=== PATIENT | female | born 1970 | race Caucasian/White ===

== ENCOUNTER 2019-11-12 06:49 | Outpatient (REF) | payer OTHER, SELFPAY ==
[2019-11-12 08:20] LABS: Glucose Urine UA NEG (NEG); Leukocyte Esterase Urine 1+ (NEG); Nitrite Urine NEG (NEG); Specific Gravity - Urine >= 1.030 (1.005-1.025); Urine Blood 3+ (NEG); Urine Ketones NEG (NEG); Urine Protein 2+ MG/DL (NEG-TRACE)
[2019-11-12 08:30] LABS: Free T4 (Free Thyroxine) 1.87 ng/dL (0.71-1.85); Thyroid Stimulating Hormone 0.01 mIU/mL (0.32-4.0)
[2019-11-12 08:30] LABS: Appearance Urine CLOUDY; Color Urine YELLOW
[2019-11-12 08:49] LABS: RBC Urine TNTC /HPF (0)
[2019-11-12 08:50] LABS: Mucus Urine 1+ /LPF; Renal Epithelial Cells Urine 1+ /LPF; Squamous Epithelial Cell Urine 1+ /LPF
== END 2019-11-12 06:50 | disposition home or self-care (01) ==
LOC: HO.LAB 06:49
PROVIDERS: PCP Internal Medicine; Visit Provider Internal Medicine
DX: E03.9 Hypothyroidism, unspecified (principal); R30.0 Dysuria
CPT/HCPCS: 36415; 81001; 81003; 84439; 84443; 87086; 87147

== ENCOUNTER 2019-11-27 12:13 | Outpatient (REF) | payer OTHER, SELFPAY ==
[2019-11-27 13:02] LABS: Urine Cytology See Pathology rpt
== END 2019-11-27 12:14 | disposition home or self-care (01) ==
LOC: HO.LAB 12:13
PROVIDERS: PCP Internal Medicine; Visit Provider Internal Medicine
DX: R31.9 Hematuria, unspecified (principal)
CPT/HCPCS: 88112

== ENCOUNTER → 2019-12-25 14:32 | Outpatient (BNVA) | payer OTHER, SELFPAY | PROVIDERS: PCP Internal Medicine; Referring Provider Internal Medicine; Visit Provider Urology | DX: Z76.89 Persons encountering health services in other specified circumstances (principal) ==

== ENCOUNTER 2020-01-22 06:57 | Day surgery (SDC) | payer OTHER, SELFPAY ==
[2020-01-16 14:29] VITALS: BMI 32.4
--- NOTE | 2020-01-21 09:00 | P.CONAN_ITS ---
HPI - Anesthesia Eval Consult details Narrative: 49yo F for Lithotripsy ESW [facility] Past Medical History Medical History (Updated 01/16/20 @ 14:32 by Jane Valdes) Palpitations Thyroid disease Surgical History Surgical History (Updated 01/16/20 @ 14:32 by Jane Valdes) History of incision and drainage Hx of carpal tunnel repair Hx of section Hx of cholecystectomy Hx of tonsillectomy Social History Social History Smoking Status: Never smoker Meds Allergies Allergy/AdvReac Type Severity Reaction Status Date / Time Sulfa (Sulfonamide Allergy Severe SYNCOPE/RADHA Verified 01/16/20 14:35 Antibiotics) H morphine [MORPHINE] Allergy Intermediate NAUSEA & Verified 01/16/20 14:35 VOMITING, vomiting Home Medications Medication Instructions Recorded Confirmed Type levothyroxine 175 mcg tablet 175 mcg PO DAILY 12/25/19 01/16/20 History Exam Exam Date and Time: January 21, 2020 0900 Height,Weight and Vital Signs: Height 5 ft Weight 75.296 kg Assessment and Plan Assessment Anesthesia Assessment: Chart Reviewed
--- NOTE | 2020-01-22 07:00 | XR_ITS ---
EXAMINATION: XR ABDOMEN KUB CLINICAL INDICATION: Preop, right renal stone COMPARISON: Ultrasound 08/23/2019 TECHNIQUE: AP view of the abdomen. FINDINGS: Cholecystectomy clips. Nonobstructive abdominal bowel gas pattern. Mild convex right thoracolumbar scoliosis. There is a 9 mm density at the level of L2-L3 suggestive of a right mid renal calculus. XR/XR KUB IMPRESSION: 9 mm density at the level of the L2-L3 disc space suggestive of a right mid renal calculus.
--- NOTE | 2020-01-22 09:13 | MHC.SHP ---
Pre-Procedural Eval Section B Chief Complaint: calculus of kidney Details of Present Illness: right eswl Relevant Family History (Specify if Yes): Yes Relevant Social History: None Present Medications: see Short Stay Collaborative assessment Medical History: No relevant PMH Allergies: Allergies Allergy/AdvReac Type Severity Reaction Status Date / Time Sulfa (Sulfonamide Allergy Severe SYNCOPE/RADHA Verified 01/16/20 14:35 Antibiotics) H morphine [MORPHINE] Allergy Intermediate NAUSEA & Verified 01/16/20 14:35 VOMITING, vomiting Review of Systems Sugical H&P ROS: Negative: Constitution, Cardiovascular, Respiratory, Neurological, Psychiatric, Hem-Onc, Allergic/Immunologic, Gastrointestinal, Genitourinary, Musculoskeletal, Integumentary, Endocrine and Eyes/Ears/Nose/Throat Exam Surgical H&P Exam: Normal: HEENT, Normal: Heart, Normal: Lungs, Normal: Extremities, Normal: Abdomen, Normal: Skin and Normal: Neurological Plan Diagnosis/Plan: Unchanged Patient has been examined and remains a candidate for the planned procedure - right eswl
--- NOTE | 2020-01-22 10:19 | PM.OP ---
Brief Operative Note Date of Service: 01/22/20 Pre-op diagnosis: Right renal stones Post-op diagnosis: same Procedure: Right ESWL Surgeon: Flip Flores MD Anesthesia: MAC Estimated blood loss (mL): 0 Pathology: none sent Condition: stable Disposition: same day
--- NOTE | 2020-01-22 10:19 | W.PM.OPN ---
Operative Note Operative Note Date of Service: 01/22/20 Narrative: PreOperative Diagnosis: right Renal stones Post Operative Diagnosis: right Renal stones Procedure: right ESWL Surgeon: Dr Flip Flores Anesthesia: mac/sedation Indications for procedure: They understand ESWL may be a staged procedure and subsequent intervention may be required based on imaging after ESWL. They also understand there is a risk of bleeding, infection, damage to adjacent organs. Procedure: After informed consent was verified the patient was brought to the operating room and placed in a supine position. Anesthesia was performed per protocol. Safety pause time-out was performed. Imaging was in the room and laterality confirmed. ESWL was performed. The 1st 500 shocks were performed at 60 hertz. These were performed with increasing power. Once maximum power was reached the rate was increased to 180 hertz. A total of 2500 shocks were given. Fluoroscopy showed stone disintegration. They tolerated procedure well and was transferred to the recovery area upon completion.
== END 2020-01-22 11:21 | disposition home or self-care (01) ==
LOC: HO.SSS 06:58
PROVIDERS: PCP Internal Medicine; Visit Provider Urology
PROC: (CPT 50590; principal; 2020-01-22 08:40)
DX: N20.0 Calculus of kidney (principal); Z88.2 Allergy status to sulfonamides; Z88.5 Allergy status to narcotic agent
CPT/HCPCS: 50590; 74018; J2250; J2370; J3010

== ENCOUNTER 2020-02-17 10:34 | Outpatient (REF) | payer OTHER, SELFPAY ==
--- NOTE | 2020-02-17 10:41 | XR_ITS ---
EXAMINATION: XR ABDOMEN KUB CLINICAL INDICATION: Calculus of kidney. COMPARISON: Abdominal radiographs dated 01/22/2020. TECHNIQUE: AP views of the abdomen. FINDINGS: Redemonstration of a right-sided renal stone measuring approximately 0.9 cm overlying the inferior pole of the right kidney. This is again noted to appear at the level of the L2-L3 intervertebral disc space. No additional radiopaque renal stone. Upper quadrant surgical clips. Nonobstructive bowel gas pattern. XR/XR KUB IMPRESSION: Redemonstration of a right-sided renal stone measuring 0.9 cm overlying the inferior pole of the right kidney.
== END 2020-02-17 10:35 | disposition home or self-care (01) ==
LOC: HO.XRAY 10:34
PROVIDERS: PCP Internal Medicine; Visit Provider Urology
DX: N20.0 Calculus of kidney (principal)
CPT/HCPCS: 74018

== ENCOUNTER → 2020-02-25 13:18 | Outpatient (BNVA) | payer OTHER, SELFPAY | PROVIDERS: PCP Internal Medicine; Visit Provider Urology ==

== ENCOUNTER 2020-03-02 06:59 | Day surgery (SDC) | payer OTHER, SELFPAY ==
--- NOTE | 2020-02-28 13:29 | P.CONAN_ITS ---
Documented by User: Marylu Mullen 02/28/20 13:30 HPI - Anesthesia Eval Consult details Narrative: 49yo F for Cystoscopy, Ureteroroscopy, Retro, Laser s/p ESWL 01/2020 with MAC, req'd ephedrine 15 and phenylephrine 300 [facility] Past Medical History Medical History Palpitations Thyroid disease Surgical History Surgical History Cataract extraction status of left eye History of incision and drainage Hx of carpal tunnel repair Hx of section Hx of cholecystectomy Hx of tonsillectomy Social History Social History Smoking Status: Never smoker Use of substances other than those prescribed or required for medical reasons: No Advance Directives: No Advance Directives Information Provided: Yes Meds Allergies Allergy/AdvReac Type Severity Reaction Status Date / Time Sulfa (Sulfonamide Allergy Severe SYNCOPE/RADHA Verified 03/02/20 07:05 Antibiotics) H morphine [MORPHINE] Allergy Intermediate NAUSEA & Verified 03/02/20 07:05 VOMITING, vomiting Home Medications Medication Instructions Recorded Confirmed Type levothyroxine 175 mcg tablet 175 mcg PO DAILY 12/25/19 01/16/20 History Exam Exam Date and Time: February 28, [id number] Assessment and Plan Assessment Anesthesia Assessment: Chart Reviewed Documented by User: Pennie Goss 03/02/20 08:14 [facility] Past Medical History Medical History Palpitations Thyroid disease Surgical History Surgical History Cataract extraction status of left eye History of incision and drainage Hx of carpal tunnel repair Hx of section Hx of cholecystectomy Hx of tonsillectomy Social History Social History Smoking Status: Never smoker Use of substances other than those prescribed or required for medical reasons: No Advance Directives: No Advance Directives Information Provided: Yes Meds Allergies Allergy/AdvReac Type Severity Reaction Status Date / Time Sulfa (Sulfonamide Allergy Severe SYNCOPE/RADHA Verified 03/02/20 07:05 Antibiotics) H morphine [MORPHINE] Allergy Intermediate NAUSEA & Verified 03/02/20 07:05 VOMITING, vomiting Home Medications Medication Instructions Recorded Confirmed Type levothyroxine 175 mcg tablet 175 mcg PO DAILY 12/25/19 01/16/20 History
[2020-03-02] VITALS (9 sets, daily range): BP systolic 98–143; BP diastolic 55–80; PULSE 54–91; RESP 16–18; TEMP 36.3–36.4; O2SAT 96–98; BMI 29.9
[2020-03-02] MEDS: levoFLOXacin 500 MG TABLET PO (07:22)
[2020-03-02] MEDS: Lactated Ringers 1,000 ML 100 ML IVCONT (07:30)
--- NOTE | 2020-03-02 08:42 | FL_ITS ---
EXAMINATION: XR FLUOROSCOPY WITH IMAGES CLINICAL INFORMATION: Right renal stone COMPARISON: KUB 02/17/2020 TECHNIQUE: Fluoroscopy performed by Dr. Flip Flores. Fluoroscopy time: 38 seconds Dose: 28 mg Images: 2 FINDINGS: Initial image demonstrates opacification of the right renal collecting system and proximal ureter. Second image demonstrates the distal end of the right internal ureteral stent. FL/FL guidance in OR IMPRESSION: Fluoroscopic guidance for right ureteral stent placement.
--- NOTE | 2020-03-02 08:51 | MHC.SHP ---
Pre-Procedural Eval Section A The patient is an INPATIENT: No Changes since office visit: No Cold of Flu in the past 2 weeks, No New Medical Problems, No Changes in Medication and No Patient answered all questions The History & Physical has been completed within 30 days and I have reviewed it.: Yes Section B Chief Complaint: calclus of kidney Allergies: Allergies Allergy/AdvReac Type Severity Reaction Status Date / Time Sulfa (Sulfonamide Allergy Severe SYNCOPE/RADHA Verified 03/02/20 07:05 Antibiotics) H morphine [MORPHINE] Allergy Intermediate NAUSEA & Verified 03/02/20 07:05 VOMITING, vomiting Plan Diagnosis/Plan: Unchanged I have reviewed the history and physical and performed a pertinent physical examination on my patient. No changes have occurred unless specified. Right retrograde, ureteroscopy laser lithotripsy stent placement
--- NOTE | 2020-03-02 09:24 | PM.OP ---
Brief Operative Note Date of Service: 03/02/20 Pre-op diagnosis: right renal stone Post-op diagnosis: same Procedure: 1. Cystoscopy right retrograde 2. Dilatation right ureteric orifice under fluoroscopy 3. Right flexible ureteroscopy laser lithotripsy stone basketing 4. Stent placement Implants: Six Argentine by 22 cm double-J stent Surgeon: Flip Flores MD Anesthesia: GLMA Estimated blood loss (mL): 0 Pathology: other (Stones) Condition: stable Disposition: same day
--- NOTE | 2020-03-02 09:26 | W.PM.OPN ---
Operative Note Operative Note Date of Service: 03/02/20 Narrative: PreOperative Diagnosis: Right renal stone Post Operative Diagnosis: Right renal stone Procedure: - cystoscopy, right retrograde - right dilatation of ureteric orifice under fluoroscopy - right ureteroscopy, laser lithotripsy, stone basketing - right stent placement Surgeon: Dr Flip Flores Anesthesia: General Indications for procedure: 49-year-old female. Had undergone ESWL on the right side but imaging had shown minimal smudging of stone. Recommend ureteroscopy with laser lithotripsy and we would be able to get pieces stone Procedure: After informed consent was verified patient was brought to the operating placed in supine position. Anesthesia was administered per protocol. Patient was placed in modified dorsal lithotomy position and prepped and draped in a sterile fashion. Safety pause time-out and side of surgery confirmed. Antibiotics confirmed. Twenty-two Latvian cystoscope inserted per urethra. Bladder was normal. The ureteric orifices normal position. Right ureteric orifice cannulated and retrograde examination performed. Filling defects seen in the right renal pelvis consistent with prior imaging 9 mm stone. Sensor guidewire placed up to the level renal pelvis. Cystoscope was removed. In a cannula from ureteric access sheath used for dilatation under fluoroscopy After dilatation of the ureteric orifice the access sheath was placed. A flexible ureteroscope was placed. The stone was encountered in the renal pelvis. Using a 272 nm holmium laser fiber the stone was broken into small pieces using combination of dusting and hammer settings. ZeroTip basket was used to remove larger fragments. The renal pelvis irrigated in fragments and sand were removed. On secondary survey Will minimal fragments seen. This point the flexible ureteroscope was removed. A sensor guidewire was placed up to the level renal pelvis. A 6 Latvian by 22 cm double-J stent was placed with good coil seen in the renal pelvis and in the bladder. Bladder was emptied. She tolerated procedure well was extubated in operating room transferred in stable condition recovery area Pathology: Stone sent Drains: 6 Latvian by 22 cm double-J stent
[2020-03-02] MEDS: Phenazopyridine HCL 100 MG TABLET PO (09:56)
[2020-03-02] MEDS: Acetaminophen 325 MG TABLET 650 MG PO (09:56)
[2020-03-02] MEDS: ondansetron HCL 4 MG/2 ML VIAL IVPUSH (10:00)
[2020-03-02] MEDS: oxyCODONE HCl Immed Release 5 MG TABLET PO (11:00)
[2020-03-05 22:18] LABS: Stone Source KIDNEY STONE
== END 2020-03-02 11:45 | disposition home or self-care (01) ==
PROVIDERS: PCP Internal Medicine; Visit Provider Urology
PROC: (CPT 52356; principal; 2020-03-02 08:30)
DX: N20.0 Calculus of kidney (principal); R00.2 Palpitations; Z90.49 Acquired absence of other specified parts of digestive tract; Z88.2 Allergy status to sulfonamides; Z88.8 Allergy status to other drugs, medicaments and biological substances
CPT/HCPCS: 52356; 82365; 88300; C1769; C1894; C2617; J1100; J1885; J2405; J3010; Q9967

== ENCOUNTER → 2020-03-11 14:50 | Outpatient (BNVA) | payer OTHER, SELFPAY | PROVIDERS: PCP Internal Medicine; Visit Provider Urology | DX: N20.0 Calculus of kidney (principal); Z46.6 Encounter for fitting and adjustment of urinary device | CPT/HCPCS: 52000; 52310; 81002 ==

== ENCOUNTER 2020-04-08 08:54 | Outpatient (REF) | payer OTHER, SELFPAY ==
--- NOTE | ~2020-04-08 | US_ITS ---
EXAMINATION: US RETROPERITONEAL LIMITED (RENAL ONLY) CLINICAL INFORMATION: Calculus of kidney. COMPARISON: X-ray KUB 02/17/2020 and 01/22/2020 TECHNIQUE: Real-time imaging of the kidneys. FINDINGS: RIGHT KIDNEY: 12.3 x 3.3 x 5.4 cm (SAG x AP x TRV). The kidney is normal in size, contour, and echogenicity. There is focal cortical thinning suspected. Otherwise, the rest of the cortical thickness is normal. No focal parenchymal lesions or hydronephrosis. There is twinkling/ echogenic shadowing likely small stone in lower pole measuring 0.7 x 0.3 x 0.5 cm. No additional echogenic stones seen. There is no hydronephrosis. LEFT KIDNEY: 11.3 x 4.4 x 5.9 cm (SAG x AP x TRV). The kidney is normal in size, contour, and echogenicity. No calculi or focal parenchymal lesions. No hydronephrosis. There is focal cortical thinning. There are punctate areas of focal echogenicity but no caliectasis. US/US renal BI IMPRESSION: Suspect bilateral focal cortical thinning. Small nonobstructive echogenic stone lower pole right kidney. No caliectasis or hydronephrosis seen.
== END 2020-04-08 08:55 | disposition home or self-care (01) ==
LOC: HO.US 08:54
PROVIDERS: Visit Provider Urology
DX: N20.0 Calculus of kidney (principal)
CPT/HCPCS: 76775

== ENCOUNTER → 2020-04-15 15:00 | Outpatient (BNVA) | payer OTHER, SELFPAY | PROVIDERS: Visit Provider Urology ==

== ENCOUNTER 2020-10-02 06:50 | Outpatient (REF) | payer OTHER, SELFPAY ==
[2020-10-02 07:20] LABS: MANUAL DIFF FLAG NO
[2020-10-02 07:22] LABS: Basophils Percent Auto 0.6 % (0-2); Eosinophils Absolute Auto 0.1 X10*3/uL (0.0-0.4); Eosinophils Percent Auto 2.8 % (0-4); Hematocrit 43.6 % (37-47); Hemoglobin 14.6 g/dl (12.0-16.0); Imm Gran Abs Auto 0.01 X10*3/uL (0.00-0.03); Imm Gran Pct Auto 0.2 % (0.0-0.4); Lymphocytes Absolute Auto 1.9 X10*3/uL (1.2-4.9); Mean Corpuscular HGB Conc 33.5 g/dl (31.0-35.0); Mean Corpuscular Hemoglobin 30.6 pg (27.0-33.0); Mean Corpuscular Volume 91.4 fL (80-98); Mean Platelet Volume 9.1 fL (9.4-12.3); Monocytes Absolute Auto 0.3 X10*3/uL (0.1-1.2); Monocytes Percent Auto 6.5 % (2-11); Neutrophils Absolute Auto 2.7 X10*3/uL (2.0-8.3); Neutrophils Percent Auto 52.9 % (45-73); Platelet Count 293 X10*3/uL (160-400); Red Blood Count 4.77 X10*6/uL (4.20-5.50); Red Cell Distribution Width 12.7 % (11.0-16.0); White Blood Count 5.1 X10*3/uL (4.8-10.8)
[2020-10-02 07:45] LABS: Alanine Aminotransferase 47 U/L (0-31); Albumin Level 4.2 g/dL (3.5-5.0); Alkaline Phosphatase 62 U/L (39-117); Anion Gap 10 (12-20); Aspartate Amino Transferase 27 U/L (5-31); Bilirubin Total 0.4 mg/dL (0.0-1.0); Blood Urea Nitrogen 24 mg/dL (9-16); Calcium 9.6 mg/dL (8.4-10.2); Carbon Dioxide 29 mmol/L (22-29); Chloride 106 mmol/L (96-108); Cholesterol 199 mg/dL; Estimated Glomerular Filt Rate > 60; Glucose Fasting 92 mg/dL (60-99); HDL Cholesterol 60 mg/dL; LDL Cholesterol Calculated 123 mg/dl; Potassium 4.9 mmol/L (3.3-5.1); Sodium 140 mmol/L (135-145); Total Protein 6.7 g/dL (6.5-8.0); Triglycerides 84 mg/dL
[2020-10-02 08:08] LABS: Free T4 (Free Thyroxine) 1.19 ng/dL (0.71-1.85); Vitamin D 25-OH Total 32.6 ng/mL (>30)
== END 2020-10-02 06:51 | disposition home or self-care (01) ==
LOC: HO.LAB 06:50
PROVIDERS: PCP Internal Medicine; Visit Provider Internal Medicine
DX: Z00.00 Encounter for general adult medical examination without abnormal findings (principal); E03.9 Hypothyroidism, unspecified; E55.9 Vitamin D deficiency, unspecified
CPT/HCPCS: 36415; 80053; 80061; 82306; 84439; 84443; 85025

== ENCOUNTER 2020-10-13 14:24 | Outpatient (REF) | payer OTHER, SELFPAY ==
--- NOTE | ~2020-10-13 | US_ITS ---
EXAMINATION: US RETROPERITONEAL LIMITED (RENAL ONLY) CLINICAL INFORMATION: Calculus of kidney. COMPARISON: Renal ultrasound 04/08/2020. KUB 02/17/2020 and 01/22/2020. Ultrasound abdomen complete 08/23/2019. CT abdomen and pelvis 06/18/2010. TECHNIQUE: Real-time imaging of the kidneys. FINDINGS: RIGHT KIDNEY: 11.2 x 4.8 x 2.6 cm (SAG x AP x TRV). The kidney is normal in size, contour, and echogenicity. Renal cortical thickness is normal. No focal parenchymal lesions or hydronephrosis. There is a nonobstructive echogenic stone in lower pole measuring 0.5 cm. LEFT KIDNEY: 11.3 x 4.8 x 4.2 cm (SAG x AP x TRV). The kidney is normal in size, contour, and echogenicity. Renal cortical thickness is normal. No calculi or focal parenchymal lesions. No hydronephrosis. US/US renal BI IMPRESSION: Nonobstructive echogenic stone lower pole right kidney. No hydronephrosis. Left kidney is unremarkable.
== END 2020-10-13 14:25 | disposition home or self-care (01) ==
LOC: HO.US 14:24
PROVIDERS: PCP Internal Medicine; Visit Provider Urology
DX: N20.0 Calculus of kidney (principal)
CPT/HCPCS: 76775

== ENCOUNTER → 2020-11-10 11:04 | Outpatient (BNVA) | payer OTHER, SELFPAY | PROVIDERS: PCP Internal Medicine ==

== ENCOUNTER 2021-03-30 10:25 | Outpatient (REF) | payer OTHER, SELFPAY ==
--- NOTE | ~2021-03-30 | MM_ITS ---
EXAMINATION: MM SCREENING DIGITAL BREAST TOMOSYNTHESIS, BILATERAL CLINICAL INFORMATION: Screening. Asymptomatic. 80 pound weight loss since prior mammography. The lifetime risk of breast cancer based on the Tyrer-Cuzick Model is 8%. COMPARISON: Mammography: 01/16/2018 (baseline) TECHNIQUE: Digital breast tomosynthesis is performed in both the craniocaudal and mediolateral oblique views along with computer-aided detection (CAD). Synthesized 2D images are generated from the tomosynthesis. FINDINGS: There are scattered areas of fibroglandular density (ACR BI-RADS breast composition Category b). The breasts are bilaterally decreased in size and show mild bilateral increased glandular attenuation consistent with the known weight loss. Parenchymal pattern is otherwise similar to prior baseline exam. There is no significant mass or architectural abnormality or abnormal calcifications. The axilla and skin contours are unremarkable. MM/MM tomosynthesis screening BI IMPRESSION: Bilateral decreased breast size and increased glandular attenuation consistent with the known weight loss. Otherwise, no significant changes. ASSESSMENT: BI-RADS 2: Benign RECOMMENDATION: Routine annual mammography screening. This patient's information was entered into a reminder system with a target due date for their next mammogram.
--- NOTE | ~2021-03-30 | MM_ITS ---
EXAMINATION: BONE DENSITOMETRY CLINICAL INDICATION: Menopause. COMPARISON: None (current study represents initial baseline exam). TECHNIQUE: Using a [employer] DXA System (software version: 13.1) manufactured by [employer], dual-energy x-ray absorptiometry was performed of the lumbar spine and left hip. The images are of good technical quality. Summary results are attached. FINDINGS: AP SPINE L1-L4: BMD 0.837 g/cm2, Z-score -1.9, T-score -2.9, osteoporosis. LEFT FEMUR, NECK: BMD 0.765 g/cm2, Z-score -0.8, T-score -2.0, osteopenia. LEFT FEMUR, TOTAL: BMD 0.798 g/cm2, Z-score -0.8, T-score -1.7, osteopenia. IDENTIFIED RISK FACTORS: None listed. HISTORY OF FRACTURE: None listed. MEDICATIONS: Vitamin D. MM/XR DEXA axial skeleton IMPRESSION: 1. DIAGNOSIS: Osteoporosis based on the lowest T-score value of -2.9 in the lumbar spine applying World Health Organization criteria. 2. 10-YEAR FRACTURE RISK PREDICTION, FRAX: According to the guidelines, FRAX calculation should only be performed on patients in the osteopenia bone density category. Therefore, FRAX was not performed on this patient. 3. Treatment Recommendations: NOF guidelines recommend consideration for treatment in postmenopausal women and men age 50 and older presenting with the following: -A hip or vertebral (clinical or morphometric) fracture. -T-score less than or equal to -2.5 at the femoral neck or spine after appropriate evaluation to exclude secondary causes. -Low bone mass at the hip or spine and a 10-year fracture probability by FRAX of greater than or equal to 3% for hip fracture or greater than or equal to 20% for major osteoporotic fracture based on the [place] adapted WHO algorithm. 4. Other Recommendations: All treatment decisions require clinical judgment and consideration of individual patient factors, including patient preferences, comorbidities, previous drug use, risk factors not captured in the FRAX model (e.g. frailty, falls, vitamin D deficiency, increased bone turnover, interval significant decline in bone density) and possible under or overestimation of fracture risk by FRAX. Additional medical evaluation for secondary cause of low bone mineral density may be appropriate. FUTURE SCAN RECOMMENDATION: People with diagnosed cases of osteoporosis or at high risk for fracture should have regular bone mineral density tests. For patients eligible for Medicare, routine testing is allowed once every 2 years. The testing frequency can be increased to one year for patients who have rapidly progressing disease, those who are receiving or discontinuing medical therapy to restore bone mass, or have additional risk factors.
== END 2021-03-30 10:26 | disposition home or self-care (01) ==
LOC: HO.MAMMO 10:25
PROVIDERS: PCP Internal Medicine; Visit Provider Internal Medicine
DX: Z12.31 Encounter for screening mammogram for malignant neoplasm of breast (principal); Z13.820 Encounter for screening for osteoporosis; Z78.0 Asymptomatic menopausal state; M81.0 Age-related osteoporosis without current pathological fracture; Z79.899 Other long term (current) drug therapy
CPT/HCPCS: 77063; 77067; 77080

== ENCOUNTER 2021-05-03 15:29 | Outpatient (REF) | payer OTHER, SELFPAY ==
--- NOTE | ~2021-05-03 | US_ITS ---
EXAMINATION: US RETROPERITONEAL LIMITED (RENAL ONLY) CLINICAL INFORMATION: Calculus of kidney. COMPARISON: Renal ultrasound 10/13/2020 and 04/08/2020. X-ray abdomen KUB 02/17/2020. CT abdomen and pelvis 06/18/2010. TECHNIQUE: Real-time imaging of the kidneys. FINDINGS: RIGHT KIDNEY: 10.5 x 3.2 x 5.5 cm (SAG x AP x TRV). The kidney is normal in size, contour, and echogenicity. Renal cortical thickness is normal. No focal parenchymal lesions or hydronephrosis. There are multiple small echogenic stones. Upper pole calculi measure 0.3 x 0.2 cm and 0.3 x 0.3 cm. Midpole calculi measure 0.3 x 0.2 cm and 0.2 x 0.2 cm. There is no caliectasis. LEFT KIDNEY: 11.0 x 4.7 x 4.9 cm (SAG x AP x TRV). The kidney is normal in size, contour, and echogenicity. Renal cortical thickness is normal. No calculi or focal parenchymal lesions. No hydronephrosis. There are multiple echogenic punctate calcifications seen in lower pole with no twinkle artifact. US/US renal BI IMPRESSION: Nonobstructive echogenic right renal calculi. Multiple punctate echogenic calcifications in left kidney.
== END 2021-05-03 15:30 | disposition home or self-care (01) ==
LOC: HO.US 15:29
PROVIDERS: PCP Internal Medicine
DX: N20.0 Calculus of kidney (principal)
CPT/HCPCS: 76775

== ENCOUNTER 2021-10-17 18:11 | Emergency (ER) | payer OTHER, SELFPAY ==
--- NOTE | ~2021-10-17 | XR_ITS ---
EXAMINATION: XR FOOT, LEFT CLINICAL INFORMATION: Fall with pain COMPARISON: Left foot radiographs 12/17/2014 TECHNIQUE: AP, lateral, and oblique views of the left foot. FINDINGS: Tiny calcification along the dorsal margin of the talar head on the lateral view, possibly a tiny avulsion fracture fragment. Correlate with pain at this location on exam. No definite or additional acute fracture. No dislocation. The joint spaces throughout the foot are maintained. Alignment at the Lisfranc joint is within normal limits. Posterior and plantar calcaneal spurs. XR/XR foot LT 2V IMPRESSION: 1. Faint linear calcifications or bone fragment along the dorsal aspect of the talar head possibly a tiny avulsion fracture fragment. Correlate with focal pain at this level on exam. 2. No definite or additional acute fracture or dislocation.
[2021-10-17 20:20] VITALS: BP 117/73; PULSE 69; RESP 16; TEMP 36.8; O2SAT 98; BMI 22.0
--- NOTE | 2021-10-18 01:25 | ED_ITS ---
HPI - Extremity Injury (Lower) General Chief Complaint: Extremity Injury, Lower Stated Complaint: foot inj Time Seen by Provider: 10/18/21 01:18 Source: patient Mode of arrival: ambulatory Limitations: no limitations History of Present Illness HPI Narrative: this 51-year-old female no significant medical history presenting to the emergency department complaints of left heel/ ankle pain status post rolling her ankle this morning. Patient tells me that she was going down the stairs, rolled her ankle out words and immediately started experiencing pain to the ankle/ heel Section of her foot. She tells me she heard a slight crack and a pop. She tells me she immediately started experiencing pain worse with ambulation, range of motion better at rest. She also reports that she has noted swelling to the left ankle/heel area. And it is painful when she touches the area. Patient tells me when she rolled her ankle she did not fall, hit her head or lose consciousness. Patient is not on blood thinners. Patient tells me she was able to go about her work day all day and then came to the emergency department afterwards . Patient tells me she is having intermittent tingling, denies numbness. Denies fevers, chills, chest pain sharp, shortness of breath nausea, vomiting, abdominal pain, headache, dizziness and vision changes. Related Data Home Medications Medication Instructions Recorded Confirmed levothyroxine 175 mcg tablet 175 mcg PO DAILY 12/25/19 01/16/20 Previous Rx's Medication Instructions Recorded phenazopyridine 100 mg tablet 100 mg PO TID PRN spasm 4 days #12 03/02/20 (Pyridium) tabs tamsulosin 0.4 mg capsule 0.4 mg PO BEDTIME #14 caps 03/02/20 tramadol 50 mg tablet 50 mg PO Q6H PRN pain #14 tabs 03/02/20 allopurinol 100 mg tablet 100 mg PO DAILY #90 tabs 03/11/20 pyridoxine (vitamin B6) 100 mg 100 mg PO DAILY 90 days #90 tabs 03/11/20 tablet oxycodone 5 mg tablet 5 mg PO BID PRN pain #6 tabs 10/18/21 Allergies Allergy/AdvReac Type Severity Reaction Status Date / Time Sulfa (Sulfonamide Allergy Severe SYNCOPE/RADHA Verified 09/10/21 13:57 Antibiotics) H morphine [MORPHINE] Allergy Intermediate NAUSEA & Verified 09/10/21 13:57 VOMITING, vomiting Review of Systems Review of Systems: Constitutional : No Weight loss, No Fever, No Chills, No Fatigue, No Malaise ENT/Mouth : No sore throat, No Rhinorrhea Eyes: No Eye Pain, No Swelling, No Redness Cardiovascular : No Chest Pain, No SOB, No Dyspnea on Exertion, No Orthopnea, No Edema, No Palpitations Respiratory : No Cough, No Sputum, No Wheezing Gastrointestinal : No Nausea, No Vomiting, No Diarrhea, No Constipation, No abdominal Pain, No Hematochezia, No Melena Genitourinary : No Dysuria, No Urinary Frequency, No Hematuria, Musculoskeletal : + joint pain, No Myalgias, No Joint Swelling Skin : No Skin Lesions, No rash Neuro : No Weakness, No Numbness, No Dizziness, No Headache Psych : No Anxiety/Panic, No Depression All other systems reviewed and are negative Yes all other systems are reviewed and are negative PMFSH Past Medical History Attestation statement: The following information was validated with the patient. Source: old records reviewed and nursing notes reviewed Medical History Bilateral nephrolithiasis Palpitations Thyroid disease Surgical History Cataract extraction status of left eye History of incision and drainage Hx of carpal tunnel repair Hx of section Hx of cholecystectomy Hx of tonsillectomy Family History Family History Father MDS (myelodysplastic syndrome) Cancer Mother No problems noted. Social History Social History Are you a primary care management specialist to a significant other at home: No Do you presently have visiting nurse or other home services: No Advance Directives: No Advance Directives Information Provided: Yes Physical Exam Vital Signs: Vital Signs: Last Vital Signs Temp 98.3 F 10/17/21 20:20 Pulse 69 10/17/21 20:20 Resp 16 10/17/21 20:20 BP 117/73 10/17/21 20:20 Pulse Ox 98 10/17/21 20:20 O2 Del Method 10/17/21 20:20 BMI result Body Mass Index 22.0 vss Appearance: Alert.? Oriented X3.? No acute distress.? Head: Normocephalic, atraumatic, no step-offs or deformities Eyes: Pupils equal, round and reactive to light.? Neck: Normal inspection.? Neck supple.? CVS: Normal heart rate and rhythm.? Pulses normal.? Respiratory: No respiratory distress.? Breath sounds normal.? Abdomen: Soft and nontender.? Skin: Skin warm and dry.? Normal skin color.? Normal skin turgor.? Extremities: No lower extremity edema.? No calf ttp. 5/5 strength to bilateral upper and lower extremities. 2+ DTR to patellar region. Pain with palpation of left lateral ankle/lateral malleolus and left lateral talus region. 2+ dorsalis pedis, anterior tibialis and posterior tibialis pulses equal bilateral. Normal range of motion to ankle, bilateral toes. Capillary refill intact to bilateral lower extremity digits. Normal sensation to bilateral lower extremities. No footdrop. No laxity noted to left lower extremity. No evidence of ligament or tendon acute tear. When compared to the right ankle, there is some swelling noted to the left ankle. Neuro: Oriented X 3.? No motor deficit.? No sensory deficitAmbulating w/ limp favoring right side. Course Reevaluation(s) Reevaluation #1: X-ray concerning for possible avulsion fracture. Patient placed in a postop shoe, given crutches. Advised to rest, ice, compress, elevate extremity. Will send home on ibuprofen every 6 hours, Tylenol every 4 for [id number] pain and morphine for more significant pain. Advised her to follow-up with orthopedics in a week or 2 if pain does not improve. At this time I feel comfortable discharge home. Educated on worrisome signs and symptoms and when to return in outlined these on her discharge. Time: 01:51 MDM - Extremity Injury (Lower) [facility] Narrative Medical decision making narrative: 129 51-year-old female presents with pain to the left ankle/heel area status post rolling her ankle while going down the stairs earlier today. Patient denies fall with head strike, patient not on blood thinners. Physical examination with swelling to the left ankle and pain with palpation. Please see physical exam section for details. Concern for fracture. Unlikely dislocation. Neurovascularly intact. No evidence of acute ligament or tendon tear at this time. Normal pulses, unlikely arterial or venous occlusion. Plan at this time is x-ray. Medical Records Attestation: I reviewed the patient's medical records. Critical Care Time Critical Care Time Critical Care Time: No Discharge Plan Discharge Clinical Impression: Foot pain, Avulsion fracture Patient Disposition: Home, Self-Care Instructions: R.I.C.E. Treatment (ED) Additional Instructions: Take your medications as prescribed. If you were prescribed antibiotics today, it is important that you take your medication to their entirety, do not skip any doses, do not finish them early. Follow-up with your primary care provider this week. Return to the emergency department with new or worsening symptoms. Such as fevers, chills, chest pain, shortness of breath, nausea, vomiting, dizziness, headache, vision changes, lethargy In case of emergency call 911 You can take ibuprofen every 6 hours, Tylenol every 4 as needed for pain or discomfort of pain is mild to moderate. Or for severe pain I have sent morphine to your pharmacy, please only take this if the pain is severe, this medication can cause dependence, drowsiness, please do not take this while operating machinery or driving, do not mix this with alcohol or any other opiates, sedatives or narcotics. Please return with new or worsening symptoms and follow-up with orthopedic team if necessary in 1-2 weeks if symptoms do not improve. Prescriptions: New oxycodone 5 mg tablet 5 mg PO BID PRN (Reason: pain) Qty: 6 0RF Rx Instructions: Partial Fill upon patient request. No Action tamsulosin 0.4 mg capsule 0.4 mg PO BEDTIME Qty: 14 0RF phenazopyridine [Pyridium] 100 mg tablet 100 mg PO TID PRN (Reason: spasm) 4 Days Qty: 12 0RF tramadol 50 mg tablet 50 mg PO Q6H PRN (Reason: pain) Qty: 14 0RF allopurinol 100 mg tablet 100 mg PO DAILY Qty: 90 3RF pyridoxine (vitamin B6) 100 mg tablet 100 mg PO DAILY 90 Days Qty: 90 1RF levothyroxine 175 mcg tablet 175 mcg PO DAILY Referrals: [facility] – [place] [facility] [Provider Group] - 2 weeks Frederick Bennett MD [Primary Care Provider] - 2 days Stand Alone Forms: Work/School Release
[2021-10-18 01:54] VITALS: BP 120/82; PULSE 72; RESP 18; O2SAT 99
== END 2021-10-18 02:18 | disposition home or self-care (01) ==
PROVIDERS: Emergency Provider Internal Medicine; PCP Internal Medicine
DX: S92.155A Nondisplaced avulsion fracture (chip fracture) of left talus, initial encounter for closed fracture (principal); W10.8XXA Fall (on) (from) other stairs and steps, initial encounter; Y93.89 Activity, other specified; Y92.238 Other place in hospital as the place of occurrence of the external cause; Y99.0 Civilian activity done for income or pay
CPT/HCPCS: 73620; 99283

== ENCOUNTER 2021-11-30 | Outpatient (REF) | payer OTHER, SELFPAY | END 2021-11-30 00:01 | disposition home or self-care (01) | LOC: HO.HOSX | PROVIDERS: Visit Provider Physician Assistant | DX: Z13.89 Encounter for screening for other disorder (principal) ==

== ENCOUNTER 2021-12-06 | Outpatient (REF) | payer OTHER, SELFPAY ==
--- NOTE | ~2021-12-06 | XR_ITS ---
EXAMINATION: XR FOOT, LEFT CLINICAL INFORMATION: Left foot pain. COMPARISON: 10/17/2021 and 12/17/2014. TECHNIQUE: AP, lateral, and oblique views of the left foot. FINDINGS: No definite acute fracture or dislocation is evident. About the lateral aspect of the tarsal bones at the region of the calcaneocuboid joint, there are a few linear densities present which could possibly represent avulsion injury. The other previous seen noted linear density about the dorsum of the distal talar bone again evident and may represent an avulsion injury of acute or chronic etiology. Clinical correlation is suggested. Calcaneal spurs at sites of insertion of Achilles and plantar tendons noted. XR/XR foot LT min 3V IMPRESSION: 1. Linear densities about the lateral aspect of the tarsal bones as well as about the dorsal aspect of the talar bone which may possibly represent acute or chronic avulsion injuries. Clinical correlation to sites of pain recommended. 2. Calcaneal spurs.
== END 2021-12-06 00:01 | disposition home or self-care (01) ==
LOC: HO.HOSX
PROVIDERS: Visit Provider Physician Assistant
DX: M79.672 Pain in left foot (principal)
CPT/HCPCS: 73630

== ENCOUNTER 2022-02-18 07:28 | Outpatient (REF) | payer OTHER, SELFPAY ==
[2022-02-18 07:44] LABS: MANUAL DIFF FLAG NO
[2022-02-18 08:38] LABS: Basophils Percent Auto 0.5 % (0-2); Eosinophils Absolute Auto 0.2 X10*3/uL (0.0-0.4); Eosinophils Percent Auto 3.6 % (0-4); Hemoglobin 14.3 g/dl (12.0-16.0); Imm Gran Abs Auto 0.02 X10*3/uL (0.00-0.03); Imm Gran Pct Auto 0.5 % (0.0-0.4); Lymphocytes Absolute Auto 1.7 X10*3/uL (1.2-4.9); Lymphocytes Percent Auto 39.6 % (20-40); Mean Corpuscular Hemoglobin 29.9 pg (27.0-33.0); Mean Corpuscular Volume 87.9 fL (80.0-98.0); Monocytes Absolute Auto 0.4 X10*3/uL (0.1-1.2); Monocytes Percent Auto 10.2 % (2-11); Neutrophils Absolute Auto 1.9 x10*3/uL (2.0-8.3); Neutrophils Percent Auto 45.6 % (45-73); Platelet Count 241 X10*3/uL (160-400); Red Blood Count 4.78 X10*6/uL (4.20-5.50); Red Cell Distribution Width 12.4 % (11.0-16.0); White Blood Count 4.2 X10*3/uL (4.8-10.8)
[2022-02-18 09:09] LABS: Alanine Aminotransferase 35 U/L (0-31); Albumin Level 3.7 g/dL (3.5-5.0); Alkaline Phosphatase 60 U/L (39-117); Anion Gap 11 (12-20); Aspartate Amino Transferase 28 U/L (5-31); Bilirubin Total 0.4 mg/dL (0.0-1.0); Blood Urea Nitrogen 20 mg/dL (9-16); Calcium 9.2 mg/dL (8.4-10.2); Carbon Dioxide 29 mmol/L (22-29); Chloride 106 mmol/L (96-108); Cholesterol 134 mg/dL; Estimated Glomerular Filt Rate > 60; Glucose Fasting 94 mg/dL (60-99); HDL Cholesterol 45 mg/dL; LDL Cholesterol Calculated 76 mg/dl; Potassium 4.6 mmol/L (3.3-5.1); Sodium 141 mmol/L (135-145); Total Protein 6.2 g/dL (6.5-8.0); Triglycerides 65 mg/dL
[2022-02-18 09:30] LABS: Free T4 (Free Thyroxine) 1.64 ng/dL (0.71-1.85); Thyroid Stimulating Hormone 0.08 uIU/mL (0.32-4.0); Vitamin D 25-OH Total 29.1 ng/mL (>30)
== END 2022-02-18 07:29 | disposition home or self-care (01) ==
LOC: HO.LAB 07:28
PROVIDERS: PCP Internal Medicine; Visit Provider Internal Medicine
DX: Z00.00 Encounter for general adult medical examination without abnormal findings (principal); E03.9 Hypothyroidism, unspecified
CPT/HCPCS: 36415; 80053; 80061; 82306; 84439; 84443; 85025

== ENCOUNTER 2022-02-25 09:56 | Outpatient (REF) | payer OTHER, SELFPAY ==
--- NOTE | ~2022-02-25 | US_ITS ---
EXAMINATION: US RETROPERITONEAL LIMITED (RENAL ONLY) CLINICAL INFORMATION: Calculus of kidney. COMPARISON: Renal ultrasound 05/03/2021 TECHNIQUE: Real-time imaging of the kidneys. FINDINGS: RIGHT KIDNEY: 10.8 x 4.8 x 5.2 cm (SAG x AP x TRV). The kidney is normal in size, contour, and echogenicity. Renal cortical thickness is normal. No focal parenchymal lesions or hydronephrosis. 2 punctate 3 mm echogenic foci with twinkle artifact may reflect tiny nonobstructing stones similar to prior. LEFT KIDNEY: 11.3 x 4.9 x 3.8 cm (SAG x AP x TRV). The kidney is normal in size, contour, and echogenicity. Renal cortical thickness is normal. No calculi or focal parenchymal lesions. No hydronephrosis. Few punctate echogenic foci without associated twinkle artifact or reflect a vascular reflector's. US/US renal BI IMPRESSION: Few 3 mm nonobstructing right renal stones similar to prior.
== END 2022-02-25 09:57 | disposition home or self-care (01) ==
LOC: HO.US 09:56
PROVIDERS: PCP Internal Medicine
DX: N20.0 Calculus of kidney (principal)
CPT/HCPCS: 76775

== ENCOUNTER 2022-03-08 19:16 | Outpatient (REF) | payer OTHER, SELFPAY ==
--- NOTE | ~2022-03-08 | MR_ITS ---
EXAMINATION: MR SHOULDER WITHOUT CONTRAST, RIGHT CLINICAL INFORMATION: Shoulder pain COMPARISON: None TECHNIQUE: MRI of the shoulder without contrast was performed on a high-field scanner. FINDINGS: ROTATOR CUFF: Mild supraspinatus and infraspinatus tendinosis. No focal tear is seen. Teres minor is intact. Mild distal subscapularis tendinosis. No muscle atrophy or fatty infiltration. BICEPS: Intact CORACOACROMIAL ARCH: The undersurface of the acromion is flat with lateral downsloping. Moderate acromioclavicular arthritis. LABRUM/CAPSULE: Intermediate signal at the base of the anteroinferior labrum, suggestive of degeneration plus/minus undisplaced tear. No additional tear is seen. Inferior capsule is intact. GLENOHUMERAL JOINT/MARROW: Mild glenohumeral joint arthritis, with subchondral glenoid cysts and edema, patchy cartilage thinning. No fracture. Small effusion. MR/MR shoulder RT wo con IMPRESSION: 1. Mild supraspinatus, infraspinatus and distal subscapularis tendinosis. No focal rotator cuff tear is seen. 2. Anteroinferior labral degeneration plus/minus undisplaced tear. 3. Mild glenohumeral joint arthritis. Small effusion. 4. Moderate acromioclavicular arthritis.
== END 2022-03-08 19:17 | disposition home or self-care (01) ==
LOC: HO.MRI 19:16
PROVIDERS: PCP Internal Medicine; Visit Provider Internal Medicine
DX: M25.511 Pain in right shoulder (principal)
CPT/HCPCS: 73221

== ENCOUNTER → 2022-04-28 15:26 | Outpatient (BNVA) | payer OTHER, SELFPAY | PROVIDERS: PCP Internal Medicine; Visit Provider Nurse Practitioner Family | DX: Z13.89 Encounter for screening for other disorder (principal) ==

== ENCOUNTER 2022-09-13 06:58 | Outpatient (REF) | payer OTHER, SELFPAY ==
[2022-09-13 10:41] LABS: Blood Urea Nitrogen 22 mg/dL (9-16); Estimated Glomerular Filt Rate > 60
== END 2022-09-13 06:59 | disposition home or self-care (01) ==
LOC: HO.LAB 06:58
PROVIDERS: PCP Internal Medicine; Visit Provider Otolaryngology
DX: H91.90 Unspecified hearing loss, unspecified ear (principal)
CPT/HCPCS: 36415; 82565; 84520

== ENCOUNTER 2022-09-15 14:31 | Outpatient (REF) | payer OTHER, SELFPAY ==
--- NOTE | ~2022-09-15 | MR_ITS ---
EXAMINATION: MR BRAIN WITHOUT AND WITH CONTRAST CLINICAL INFORMATION: Sudden hearing loss, right ear COMPARISON: None TECHNIQUE: Multiplanar multisequence MR imaging of the brain was obtained without and following the administration of 5.5 mL Gadavist intravenous contrast. FINDINGS: There is no acute infarct on diffusion-weighted imaging. There is no intracranial hemorrhage on iron-sensitive imaging. No extra-axial collection or mass effect/herniation. There are several scattered foci of nonspecific supratentorial white matter T2/FLAIR signal abnormality. The 7th and 8th cranial nerve complexes are symmetric in course, caliber, and enhancement characteristics. Major inner ear structures including the cochlea, semicircular canals, and vestibule are symmetric in morphology and demonstrate normal CSF signal. No enhancing intracanalicular or cerebellopontine angle mass lesion is visualized. No hydrocephalus. The ventricles are normal in morphology and size. No abnormal parenchymal or extra-axial enhancement. The midline structures are normal. The cerebellar tonsils are normally positioned. The craniocervical junction is normal. Marrow signal is within normal limits. The visualized soft tissues are without significant abnormality. No signal abnormality within the paranasal sinuses or within the mastoid air cells. MR/MR head/brain wo/w con IMPRESSION: No evidence of retrocochlear pathology.
[2022-09-15] MEDS: gadobutroL 7.5 ML VIAL IVPUSH (15:01)
== END 2022-09-15 14:32 | disposition home or self-care (01) ==
LOC: HO.MRI 14:31
PROVIDERS: PCP Internal Medicine; Visit Provider Otolaryngology
DX: H91.21 Sudden idiopathic hearing loss, right ear (principal); D33.3 Benign neoplasm of cranial nerves
CPT/HCPCS: 70553; A9585

== ENCOUNTER 2022-09-21 08:14 | Day surgery (SDC) | payer OTHER, SELFPAY ==
[2022-09-19 13:53] VITALS: BMI 24.4
--- NOTE | 2022-09-20 10:47 | HO.ANESPROP2 ---
Documented by User: Marylu Mullen NP 09/20/22 10:47 HPI - Anesthesia Eval Consult details Narrative: 52yo F for Colonoscopy PMFSH Active Problems Active Problems: All Active Problems (Updated 12/28/21 @ 11:56 by Nini Ferreira PA-C) Encounter for screening colonoscopy (Acute) Bilateral nephrolithiasis (Acute) Nephrolithiasis (Acute) Past Medical History Medical History Bilateral nephrolithiasis Hearing loss Palpitations Thyroid disease Tinnitus Family History Family History Father MDS (myelodysplastic syndrome) Cancer Mother No problems noted. Surgical History Surgical History Cataract extraction status of left eye History of incision and drainage Hx of carpal tunnel repair Hx of section Hx of cholecystectomy Hx of tonsillectomy Social History Social History Household Members Other:: , adult children Are you a primary career development associate to a significant other at home: No Do you presently have visiting nurse or other home services: No Patient Tobacco Use Status: Never used Tobacco Are you DNR?: No Advance Directives: No Advance Directives Information Provided: Yes Patient : No FDLMP: 11 mths ago Current occupational status: employed 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 Meds Allergies Allergy/AdvReac Type Severity Reaction Status Date / Time Sulfa (Sulfonamide Allergy Severe SYNCOPE/RADHA Verified 04/28/22 21:41 Antibiotics) H morphine [MORPHINE] Allergy Intermediate NAUSEA & Verified 04/28/22 21:41 VOMITING, vomiting Home Medications Medication Instructions Recorded Confirmed Last Taken Type ascorbate calcium (vitamin C) 500 500 mg PO DAILY 11/02/21 04/28/22 Unknown History mg tablet levothyroxine 175 mcg tablet 175 mcg PO DAILY 04/28/22 04/28/22 Unknown History (Synthroid) Exam Exam Date and Time: September 20, 2022 1047 Height,Weight and Vital Signs: Height 5 ft Weight 56.699 kg Assessment and Plan Assessment Anesthesia Assessment: Chart Reviewed Documented by User: Lis Tanner MD 09/21/22 10:06 [facility] Active Problems Active Problems: All Active Problems (Updated 09/21/22 @ 09:30 by Lis Tanner MD) Encounter for screening colonoscopy (Acute) Bilateral nephrolithiasis (Acute) Nephrolithiasis (Acute) Hypothyroidism Past Medical History Medical History Bilateral nephrolithiasis Hearing loss Palpitations Thyroid disease Tinnitus Family History Family History Father MDS (myelodysplastic syndrome) Cancer Mother No problems noted. Family history of problems with anesthesia: No Surgical History Surgical History Cataract extraction status of left eye History of incision and drainage Hx of carpal tunnel repair Hx of section Hx of cholecystectomy Hx of tonsillectomy History of Problems with Anesthesia: No Social History Social History Household Members Other:: , adult children Are you a primary career development associate to a significant other at home: No Do you presently have visiting nurse or other home services: No Patient Tobacco Use Status: Never used Tobacco Are you DNR?: No Advance Directives: No Advance Directives Information Provided: Yes Patient : No FDLMP: 11 mths ago Current occupational status: employed 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 Meds Allergies Allergy/AdvReac Type Severity Reaction Status Date / Time Sulfa (Sulfonamide Allergy Severe SYNCOPE/RADHA Verified 04/28/22 21:41 Antibiotics) H morphine [MORPHINE] Allergy Intermediate NAUSEA & Verified 04/28/22 21:41 VOMITING, vomiting Home Medications Medication Instructions Recorded Confirmed Last Taken Type ascorbate calcium (vitamin C) 500 500 mg PO DAILY 11/02/21 04/28/22 Unknown History mg tablet levothyroxine 175 mcg tablet 175 mcg PO DAILY 04/28/22 04/28/22 Unknown History (Synthroid) Exam Height,Weight and Vital Signs: Height 5 ft Weight 56.699 kg Vital Signs Temp Pulse Resp BP Pulse Ox O2 Del Method 09/21/22 08:50 96.9 F 76 18 100/70 99 Room Air Airway Mallampati Class: II TM Dist: >3cm Neck ROM: Full Loose/Missing/Broken Teeth: No (Denies broken, loose, missing teeth) Heart: RRR Lungs: CTAB Assessment and Plan Assessment Anesthesia Assessment: Anesthesia Plan Discussed Final Anesthetic Review Family History of Problems with Anesthesia: No History of Problems with Anesthesia: No NPO: Yes ASA Class: II Final Preanesthetic Review: No Changes in Pt Med Stat, Meds/Allgs Chart Reviewed, Consent Obtained/Reviewed and Anes Risks/Benef Reviewed Patient Risk: Low Procedure Risk: Low Assessment/Block/Sedation in SS: Assess/Block/Sedation-SS Anesthetic Plan Anesthetic Plan: MAC: Disposition: Standard PACU
[2022-09-21 08:50] VITALS: BP 100/70; PULSE 76; RESP 18; TEMP 36.1; O2SAT 99
[2022-09-21] MEDS: Lactated Ringers 1,000 ML 100 ML IVCONT (09:05)
--- NOTE | 2022-09-21 09:26 | MHC.SHP ---
Pre-Procedural Eval Section A Date of Service: 09/21/22 Section B Chief Complaint: screening Relevant Family History (Specify if Yes): No Relevant Social History: None Present Medications: see Short Stay Collaborative assessment Medical History: Significant History (hypothyroid) History of Previous Operations: Relevant previous surgery/procedure and date(s) (Cataract extraction status of left eye History of incision and drainage Hx of carpal tunnel repair Hx of section Hx of cholecystectomy Hx of tonsillectomy) Allergies: Allergies Allergy/AdvReac Type Severity Reaction Status Date / Time Sulfa (Sulfonamide Allergy Severe SYNCOPE/RADHA Verified 04/28/22 21:41 Antibiotics) H morphine [MORPHINE] Allergy Intermediate NAUSEA & Verified 04/28/22 21:41 VOMITING, vomiting Review of Systems Sugical H&P ROS: Negative: Constitution, Cardiovascular, Respiratory, Neurological, Psychiatric, Hem-Onc, Allergic/Immunologic, Gastrointestinal, Genitourinary, Musculoskeletal, Integumentary, Endocrine and Eyes/Ears/Nose/Throat Exam Surgical H&P Exam: Normal: HEENT, Normal: Heart, Normal: Lungs, Normal: Extremities, Normal: Abdomen, Normal: Skin and Normal: Neurological Plan Diagnosis/Plan: Unchanged I have reviewed the history and physical and performed a pertinent physical examination on my patient. No changes have occurred unless specified. Time Spent With Patient Time: Total time managing care of this patient today ____ minutes.
--- NOTE | 2022-09-21 10:00 | W.PM.OPN ---
Operative Note Operative Note Date of Service: 09/21/22 Narrative: Operative Information Procedure Description: Colonoscopy Indication: screening Anesthesia: MAC COLONOSCOPY Instrument: Olympus variable stiffness pediatric scope 190L Colonoscopy Monitoring: Vital signs and clinical assessment, continuous EKG monitoring, Pulse oximetry, Carbon Dioxide monitoring and blood pressure monitoring were done throughout the procedure. Colon withdrawal time was 11 minutes. Procedure: The patient was placed in the left lateral decubitis position and pre-procedure medications were administered. After a digital rectal examination of the ano-rectum, the video colonoscope was inserted into the rectum and advanced through the colon to the cecum/TI. The colonoscope was slowly withdrawn in a retrograde panoramic fashion and the colon mucosa was carefully examined including a retroflexed view of the rectum. Findings and interventions are described below. Procedure Difficulty: easy Findings: Terminal Ileum-normal Cecum:normal Right sided retroflexion--normal Ascending Colon: there was a slightly irregular fold possibly a polyp vs prominent fold this was biopsy excised, measured about 4-5 mm in length Transverse Colon -normal Descending Colon:normal Sigmoid Colon: normal Rectum: Retroflexion with small internal hemorrhoids, grade I Anorectum - normal Colon preparation: [place] Bowel Preparation Scale Right colon; 2 Transverse colon: 2 Left colon; 2 (0 = Unprepared colon segment with mucosa not seen due to solid stool that cannot be cleared. 1 = Portion of mucosa of the colon segment seen, but other areas of the colon segment not well seen due to staining, residual stool and/or opaque liquid. 2 = Minor amount of residual staining, small fragments of stool and/or opaque liquid, but mucosa of colon segment seen well. 3 = Entire mucosa of colon segment seen well with no residual staining, small fragments of stool or opaque liquid) Impression and Post Procedure Diagnosis: possible polyp internal hemorrhoids Plan: High fiber diet leaflet Avoid straining at stool, epsom salts and sitz bath, anusol supps or cream Repeat Colonoscopy in 5-7 years if adenomatous polyp on the biopsy, otherwise 10 yrs or earlier if clinically indicated Above findings were reviewed with the patient and relevant handouts were provided if indicated.
[2022-09-21 10:43] VITALS: BP 100/56; PULSE 69; RESP 16; TEMP 36.6; O2SAT 99
[2022-09-21 10:58] VITALS: BP 101/64; PULSE 63; RESP 18; O2SAT 100
[2022-09-21 11:13] VITALS: BP 109/68; PULSE 52; RESP 18; TEMP 36.9; O2SAT 98
== END 2022-09-21 12:41 | disposition home or self-care (01) ==
PROVIDERS: PCP Internal Medicine; Visit Provider Internal Medicine Gastroenterology
PROC: 0DJD8ZZ Inspection of Lower Intestinal Tract, Via Natural or Artificial Opening Endoscopic (ICD-10-PCS; CPT 45378; principal; 2022-09-21 10:20)
DX: Z12.11 Encounter for screening for malignant neoplasm of colon (principal); K63.5 Polyp of colon; K64.0 First degree hemorrhoids; E03.9 Hypothyroidism, unspecified; R00.2 Palpitations; Z88.2 Allergy status to sulfonamides; Z88.8 Allergy status to other drugs, medicaments and biological substances; Z87.442 Personal history of urinary calculi; Z90.49 Acquired absence of other specified parts of digestive tract
CPT/HCPCS: 45380; 88305

== ENCOUNTER → 2022-09-21 08:14 | Outpatient (BNV) | payer OTHER, SELFPAY | PROVIDERS: PCP Internal Medicine; Visit Provider Internal Medicine Gastroenterology | DX: Z12.11 Encounter for screening for malignant neoplasm of colon (principal); D12.2 Benign neoplasm of ascending colon; K64.8 Other hemorrhoids | CPT/HCPCS: 45380 ==

== ENCOUNTER 2022-10-05 08:24 | Outpatient (AMB) | payer OTHER, SELFPAY ==
[2022-10-05 08:31] VITALS: BP 83/57; PULSE 60; BMI 23.4
--- NOTE | 2022-10-05 08:31 | A.OFFVIS_ITS ---
Intake Vital Signs 10/05/22 08:31 Height 5 ft Weight 120 lb BMI 23.4 BP 83/57 L Blood Pressure Location Lt brachial Position Sitting Pulse 60 Intake Visit Reasons: S/p colon- Bonilla Intake Note: Patient follow up for Colonoscopy results. Patient denies any GI issues. Planner Intern Required: No Accompanied by: Self / Same As Patient Allergies Sulfa (Sulfonamide Antibiotics) Allergy (Severe, Verified 10/05/22 08:30) SYNCOPE/RASH morphine [MORPHINE] Allergy (Intermediate, Verified 10/05/22 08:30) NAUSEA & VOMITING, vomiting Medication List - Last Reconciled 10/05/22 by Nini Ferreira PA-C ascorbate calcium (vitamin C) 500 mg PO DAILY levothyroxine (Synthroid) 175 mcg PO DAILY HPI HPI Comments History of Present Illness Details A 52-year-old female follows up after recent index screening colonoscopy-tolerated procedure well No GI or general complaints Excited taking a trip to [place] Discussed procedure report pathology recommendation No nausea, vomiting, hematemesis, hematochezia fever chills PFSH Medical History (Updated 10/05/22 @ 09:10 by Nini Ferreira PA-C) Bilateral nephrolithiasis Hearing loss Palpitations Thyroid disease Tinnitus Surgical History Cataract extraction status of left eye History of incision and drainage Hx of carpal tunnel repair Hx of section Hx of cholecystectomy Hx of colonoscopy Hx of tonsillectomy Family History Father MDS (myelodysplastic syndrome) Cancer Mother No problems noted. 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 Review of Systems Const All systems reviewed & are unremarkable except as noted in HPI and below Physical Exam Vital Signs: Last Vital Signs Pulse 60 10/05/22 08:31 BP 83/57 L 10/05/22 08:31 BMI result Body Mass Index 23.4 Const General: cooperative, healthy appearing, comfortable, no acute distress and well groomed Orientation/consciousness: patient oriented x3 Limitations: no limitations Eyes Sclerae: sclerae normal Skin General skin exam: no rashes or lesions noted Neuro General: patient oriented x3 Extrem General: Yes full ROM Psych Appearance: grossly normal and well kempt Mental Status: mental status grossly normal Speech and movement: Normal speech and movement present and Clear speech present Affect: normal affect Attitude: cooperative Thought process: Normal thought process present Thought content: Normal thought content present Insight: Good insight present (Psych) Judgement: Good judgement present (Psych) Results Reviewed Results Reviewed: Impression and Post Procedure Diagnosis: possible polyp internal hemorrhoids Plan: High fiber diet leaflet Avoid straining at stool, epsom salts and sitz bath, anusol supps or cream Repeat Colonoscopy in 5-7 years if adenomatous polyp on the biopsy, otherwise 10 yrs or earlier if clinically indicated linn:?Mai Garza Age/Sex: 52/F Attending: Angie Bonilla MD : 1970 Submitted by: Angie Bonilla MD Copies to: Frederick Bennett MD MR #: [id number] ? Status: [facility] Collected: 09/21/22 Location: [facility] Received: 09/21/22 Diagnosis Colon, prominent fold/polyp:? Consistent with hyperplastic polyp (see comment).? Comment:? Sessile serrated lesion/polyp cannot be excluded in any residual lesion and endoscopic follow-up is warranted. Assessment & Plan Assessment & Plan (1) Colon polyps: Comment: linn: Mai Garza Age/Sex: 52/FAttending: Angie Bonilla MD : 1970ubmitted by: Angie Bonilla MD to: Frederick Bennett MD MR #: [id number] Status: DEP SDCCollected: 09/21/22 [facility] Diagnosis Colon, prominent fold/polyp: Consistent with hyperplastic polyp (see comment). Comment: Sessile serrated lesion/polyp cannot be excluded in any residual lesion and endoscopic follow-up is warranted. Code(s): K63.5 - Polyp of colon (2) Hemorrhoids: Code(s): K64.9 - Unspecified hemorrhoids Plan: hfd Avoid straining Plan 5 year repeat colonoscopy Patient Instructions: Pleasant 52-year-old female follows up after recent colonoscopy with polyp Reviewed procedure report, pathology and recommendation Repeat asymptomatic colonoscopy 5 years Maintain high-fiber diet avoid straining with hemorrhoid Encouraged to call with any questions or concerns Coding Level of Care Code Est Pt Level 3 (87264) Diagnoses Colon polyps K63.5 Hemorrhoids K64.9 Time Spent (min) 30
== END 2022-10-05 10:26 | disposition home or self-care (01) ==
PROVIDERS: PCP Internal Medicine; Visit Provider Physician Assistant
DX: K63.5 Polyp of colon (principal); K64.9 Unspecified hemorrhoids
CPT/HCPCS: 99213

== ENCOUNTER → 2022-10-05 08:24 | Outpatient (BNVA) | payer OTHER, SELFPAY | PROVIDERS: PCP Internal Medicine; Visit Provider Physician Assistant ==

== ENCOUNTER 2022-10-24 08:55 | Outpatient (REF) | payer OTHER, SELFPAY ==
--- NOTE | ~2022-10-24 | US_ITS ---
EXAMINATION: US RETROPERITONEAL LIMITED (RENAL ONLY) CLINICAL INFORMATION: Calculus of kidney. COMPARISON: Ultrasound retroperitoneal limited (renal only) 02/25/2022 and 05/03/2021. X-ray abdomen KUB 02/17/2020 and 01/22/2020. TECHNIQUE: Real-time imaging of the kidneys. FINDINGS: RIGHT KIDNEY: 11.6 x 4.2 x 5.0 cm (SAG x AP x TRV). The kidney is normal in size, contour, and echogenicity. Renal cortical thickness is normal. No calculi or focal parenchymal lesions. No hydronephrosis. Mild fullness of the renal pelvis is seen. LEFT KIDNEY: 11.2 x 4.9 x 6.0 cm (SAG x AP x TRV). The kidney is normal in size, contour, and echogenicity. Renal cortical thickness is normal. No focal parenchymal lesions or hydronephrosis. There is a 0.1 x 0.1 x 0.2 cm echogenic calcification in the lower pole was no twinkle artifact. US/US renal BI IMPRESSION: 1. Mild fullness of the right renal pelvis. No renal calculi in the right kidney. 2. Punctate echogenic calcification in the lower pole of the left kidney.
== END 2022-10-24 08:56 | disposition home or self-care (01) ==
LOC: HO.US 08:55
PROVIDERS: PCP Internal Medicine; Visit Provider Nurse Practitioner Family
DX: N20.0 Calculus of kidney (principal)
CPT/HCPCS: 76775

== ENCOUNTER 2022-11-22 15:26 | Outpatient (AMB) | payer OTHER, SELFPAY ==
--- NOTE | 2022-11-22 15:29 | A.OFFVIS_ITS ---
Intake Intake Visit Reasons: 6m/US(set) Intake Note: Patient is present for 6mo follow up kidney stones with ultrasound (imaging 10/24/22) Urology Medications: none Blood Thinner: none [place] Cutter Required: No Accompanied by: Self / Same As Patient Allergies Sulfa (Sulfonamide Antibiotics) Allergy (Severe, Verified 11/22/22 18:24) SYNCOPE/RASH morphine [MORPHINE] Allergy (Intermediate, Verified 11/22/22 18:24) NAUSEA & VOMITING, vomiting Medication List - Last Reconciled 11/22/22 by YANY Holliday levothyroxine (Synthroid) 175 mcg PO DAILY HPI HPI Comments History of Present Illness Details Mai is a pleasant 52-year-old female patient of Dr. Bennett. She has a past medical history of right-sided hearing loss, tinnitus, nephrolithiasis, and hypothyroidism. She presents to the office today for follow-up of her nephrolithiasis. When asked she reports to be doing and feeling well. Recent renal imaging results reviewed with the patient today. Left kidney with no calculi, lesions, and or hydronephrosis. Mild fullness of the right renal pelvis is seen. Left kidney with no lesions or hydronephrosis. There is a 0.1 x 0.1 x 0.2 cm echogenic calcification in the lower pole was no twinkle artifact. When asked she reports she continues to drink adequate amount of water daily. She discusses her upcoming trip to [place] on Monday for approximately 8 days for her anniversary. When asked she denies urinary urgency, urinary frequency, incontinence, nocturia, hematuria, dysuria, foul smelling urine, changes to urinary stream, flank pain, fever, and or chill s. She otherwise denies any other issues or concerns at this time. [facility] Medical History Hearing loss Tinnitus Bilateral nephrolithiasis Palpitations Thyroid disease Surgical History Hx of colonoscopy Cataract extraction status of left eye Hx of tonsillectomy Hx of section History of incision and drainage Hx of carpal tunnel repair Hx of cholecystectomy Family History Father MDS (myelodysplastic syndrome) Cancer Mother No problems noted. 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 Review of Systems Const All systems reviewed & are unremarkable except as noted in HPI and below Reports no additional complaints Eyes Reports no additional complaints ENT Reports as per HPI Card Reports no additional complaints Resp Reports no additional complaints GI Reports no additional complaints Reports as per HPI Musc Reports no additional complaints Neuro Reports no additional complaints Psych Reports no additional complaints Endo Reports as per HPI Maverick/Lymph Reports no additional complaints Aller/Immun Reports no additional complaints Physical Exam Const General: cooperative, healthy appearing, comfortable, no acute distress, well developed, alert and awake Nutritional Appearance: average body habitus Orientation/consciousness: patient oriented x3 Limitations: no limitations HEENT Head: Yes normal to inspection, Yes normocephalic and Yes atraumatic Ears: hearing grossly normal bilaterally Eyes General: appearance normal, both eyes and all related structures Neck Neck: Yes normal visual inspection and Yes trachea midline Chest Chest palpation & inspection: normal inspection of the chest Resp Effort & Inspection: normal respiratory effort and able to speak in complete sentences Cardio Rate: regular rate GI Inspection: Yes normal to inspection General: Yes no CVA tenderness Back/Spine/Pelvis Back: no CVA tenderness Skin General skin exam: no rashes or lesions noted Neuro General: patient oriented x3 Extrem General: Yes normal to inspection Psych Appearance: grossly normal and well kempt Mental Status: mental status grossly normal Speech and movement: Normal speech and movement present, Clear speech present and Pressured speech present Affect: normal affect Attitude: cooperative Thought process: Normal thought process present Thought content: Normal thought content present Insight: Good insight present (Psych) Judgement: Good judgement present (Psych) Results AMB Urinalysis, Automated UA Leukoctes 0 Christian/uL Last Edit by Hawk Nelson on 11/22/22 16:07 UA Nitrite Negative Last Edit by Hawk Nelson on 11/22/22 16:07 UA Urobilinogen 0.2 mg/dL Last Edit by Hawk Nelson on 11/22/22 16:07 UA Protein 0 mg/dL Last Edit by Sje Omar on 11/22/22 16:07 UA pH 6.5 Last Edit by Thomasyce Omar on 11/22/22 16:07 UA Blood 0 Jovon/uL Last Edit by Thomasyce Omar on 11/22/22 16:07 UA Specific [place] 1.010 Last Edit by Brandyce Omar on 11/22/22 16:07 UA Ketone Negative Last Edit by Thomasyce Omar on 11/22/22 16:07 UA Bilirubin 0 mg/dL Last Edit by Brandyce Omar on 11/22/22 16:07 UA Glucose 0 mg/dL Last Edit by Brandyce Omar on 11/22/22 16:07 Results Reviewed Results Reviewed: Laboratory Last Values Urine pH (Auto) 6.5 11/22/22 15:36 Specific [place] (Auto) 1.010 11/22/22 15:36 Urine Protein (Auto) 0 mg/dL 11/22/22 15:36 Glucose (UA)(Auto) 0 mg/dL 11/22/22 15:36 Urine Ketones (Auto) Negative 11/22/22 15:36 Urine Blood (Auto) 0 Jovon/uL 11/22/22 15:36 Urine Nitrite (Auto) Negative 11/22/22 15:36 Urine Bilirubin (Auto) 0 mg/dL 11/22/22 15:36 Urine Urobilinogen (Auto) 0.2 mg/dL 11/22/22 15:36 Leukocyte Esterase (Auto) 0 Christian/uL 11/22/22 15:36 Date of Service: 10/24/22 EXAMINATION: US RETROPERITONEAL LIMITED (RENAL ONLY) FINDINGS: RIGHT KIDNEY: 11.6 x 4.2 x 5.0 cm (SAG x AP x TRV). The kidney is normal in size, contour, and echogenicity. Renal cortical thickness is normal. No calculi or focal parenchymal lesions. No hydronephrosis. Mild fullness of the renal pelvis is seen. LEFT KIDNEY: 11.2 x 4.9 x 6.0 cm (SAG x AP x TRV). The kidney is normal in size, contour, and echogenicity. Renal cortical thickness is normal. No focal parenchymal lesions or hydronephrosis. There is a 0.1 x 0.1 x 0.2 cm echogenic calcification in the lower pole was no twinkle artifact. IMPRESSION: 1. Mild fullness of the right renal pelvis. No renal calculi in the right kidney. 2. Punctate echogenic calcification in the lower pole of the left kidney. Assessment & Plan Assessment & Plan (1) Nephrolithiasis: Code(s): N20.0 - Calculus of kidney Plan In office urinalysis results reviewed with the patient today; as noted above. Recent renal imaging results reviewed with the patient today; as noted above. Patient denies any bothersome urinary issues or concerns at this time. Educated, instructed, and encouraged on the importance of drinking plenty of ron er daily. Continue adding 1 oz of lemon juice to water daily. Renal ultrasound in 6 months. Follow-up in 6 months with imaging to be completed prior; or sooner with any issues, concerns, and or questions. Orders: Orders AMB Urinalysis Automated Today Z13.9 - Encounter for screening, unspecified US renal BI 6 Months N20.0 - Calculus of kidney Patient Instructions: The patient had an opportunity to ask questions regarding the treatment plan. All questions were answered. Physical exam, labs, and imaging were discussed and reviewed in detail. As well as risks, benefits, and discussion of treatment choices. No major barriers to understanding were identified. The patient expressed understanding and agreement with the above treatment plan. The patient was made aware they should contact our office by phone for worsening of their current condition, the appearance of new symptoms, or with any questions or concerns. Compliance is encouraged with any medications and follow up testing that is ordered. It is a privilege to be allowed the opportunity to participate in? your urological care.? Again, if you have any questions or concerns If you have any questions or concerns please do not hesitate to contact me. The office is [phone]. This note is constructed using voice recognition software. While every effort has been made to ensure accuracy floor covering contractor errors may have been included. Yours sincerely, YANY Holliday Coding Level of Care Code Est Pt Level 3 (70812) Diagnoses Nephrolithiasis N20.0
== END 2022-11-22 16:10 | disposition home or self-care (01) ==
PROVIDERS: Visit Provider Nurse Practitioner Family
DX: Z13.9 Encounter for screening, unspecified (principal); N20.0 Calculus of kidney
CPT/HCPCS: 99213

== ENCOUNTER → 2022-11-22 15:26 | Outpatient (BNVA) | payer OTHER, SELFPAY | PROVIDERS: Visit Provider Nurse Practitioner Family | DX: N20.0 Calculus of kidney (principal) | CPT/HCPCS: 81003 ==

== ENCOUNTER 2023-01-31 16:48 | Outpatient (REF) | payer OTHER, SELFPAY | END 2023-01-31 16:49 | disposition home or self-care (01) | LOC: HO.XRAY 16:48 | PROVIDERS: PCP Internal Medicine; Visit Provider Internal Medicine | DX: M25.531 Pain in right wrist (principal) | CPT/HCPCS: 73110 ==

== ENCOUNTER 2023-03-09 20:12 | Outpatient (REF) | payer OTHER, SELFPAY ==
--- NOTE | ~2023-03-09 | MR_ITS ---
EXAMINATION: MR WRIST WITHOUT CONTRAST, RIGHT CLINICAL INFORMATION: Right wrist pain and numbness. Prior carpal tunnel surgery. Weakness. COMPARISON: Right wrist radiographs dated 01/31/2023. TECHNIQUE: MRI of the wrist was performed using routine sequences on a high-field scanner. FINDINGS: TRIANGULAR FIBROCARTILAGE: Attenuation and heterogeneity of the central radial aspect without a measurable full-thickness tear. Heterogeneity of the ulnar styloid and foveal attachments. Findings are consistent with degenerative tearing. INTRINSIC LIGAMENTS: Intact. TENDONS/MEDIAN NERVE: Fluid and edema within the abductor pollicis longus and extensor pollicis brevis tendon sheaths with thickening and heterogeneity of the tendons, consistent with tendinosis and tenosynovitis. No transverse tendon tear or tendon retraction. The remaining visualized flexor and extensor tendons are intact. Intact median nerve. ARTICULAR CARTILAGE/BONE: Marrow edema within the radial styloid which may be reactive to the adjacent tendon pathology or represent an osseous contusion. No associated fracture line. Degenerative cystic change within the lunate. Normal carpal alignment. No concerning lytic or blastic osseous lesion. JOINT FLUID/SOFT TISSUES: Trace distal radioulnar joint effusion. Synovial recess versus ganglion cyst dorsal to the lunate measuring up to 0.8 cm in greatest dimension. MR/MR wrist RT wo con IMPRESSION: 1. Moderate abductor pollicis longus and extensor pollicis brevis tendinosis and tenosynovitis without a transverse tendon tear or tendon retraction. 2. Marrow edema within the radial styloid which may be reactive to the adjacent tendon pathology or represent an osseous contusion. No associated fracture line. 3. Degenerative tearing through the central radial aspect of the triangular fibrocartilage complex without a measurable full-thickness tear. Trace distal radioulnar joint effusion. 4. Synovial recess versus ganglion cyst dorsal to the lunate measuring up to 0.8 cm.
== END 2023-03-09 20:13 | disposition home or self-care (01) ==
LOC: HO.MRI 20:12
PROVIDERS: PCP Internal Medicine; Visit Provider Internal Medicine
DX: M25.531 Pain in right wrist (principal)
CPT/HCPCS: 73221

== ENCOUNTER 2023-04-18 13:47 | Outpatient (AMB) | payer OTHER, SELFPAY ==
--- NOTE | 2023-04-18 14:30 | MHC.OFFVIS ---
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 Patient was referred by pcp who referred patient for further evaluation for possible torn tendon. MRI done and scanned in to patient chart. Patient reports her symptoms started in January when she was cutting a tree that had fell/carrying large tree limbs. Pain is felt all the time but is worse in the morining worse in the morning when she stretches and feels a tearing/ shooting pain at the base of the thumb. She has a thumb velcro splint which provides her mild relief, but she does have some stiffness from wearing the brace often. Hx of taking tramodol, oxycodone with no relief. No hx of O.T. Hx of Right Carpal Tunnel Release. 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 Her chief complaint is of right radial wrist pain extending towards the thumb. This began after she was helping carry logs after chopping down some branches with her sometime in January of 2023. 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 She is the of Dr. Garza, who works here at [facility] [employer] [facility]. An MRI of the right wrist was ordered by her primary care provider and she is here today also for review of that MRI. She wears a thumb splint, with mild relief, and found no relief from Oxycodone or Tramadol. She denies any OT. [facility] Medical History Hearing loss Tinnitus Bilateral nephrolithiasis Palpitations Thyroid disease Surgical History Hx of colonoscopy Cataract extraction status of left eye Hx of tonsillectomy Hx of section History of incision and drainage Hx of carpal tunnel repair Hx of cholecystectomy Family History Father MDS (myelodysplastic syndrome) Cancer Mother No problems noted. 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 Review of Systems Const All systems reviewed & are unremarkable except as noted in HPI and below Physical Exam Vital Signs: BMI result Body Mass Index 24.4 Const General: cooperative, healthy appearing and no acute distress Orientation/consciousness: patient oriented x3 HEENT Head: Yes normocephalic and Yes atraumatic Eyes EOM: EOMs intact bilaterally Resp Effort & Inspection: normal respiratory effort and able to speak in complete sentences Cardio Jugular venous distension: no JVD Skin General skin exam: turgor normal Rashes: no rashes Neuro General: patient oriented x3 Extrem Other: Evaluation of Right Upper Extremity: The patient is alert, oriented, and in no acute distress Neuro: Median, Ulnar, Radial nerves motor and sensory intact and sensation is normal to the tips of all digits Vascular: Cap refill brisk ROM: She can make a fist and extend all her digits No locking or catching Skin: No lacerations or abrasions. General: No Ecchymosis. No Erythema or evidence of infection. Negative Gemini test on the left Positive Gemini test on the right Most tender over the 1st dorsal compartment Mild tenderness at the MCP joint. MCP joint stable on exam and no pain with testing. No tenderness over the A1 florencia. No locking or catching. No tenderness about the ulnar aspect of the wrist or fovea. Full DRUJ range of motion and the DRUJ was stable and nontender. Radiographs: 3 views of the right hand from 01/31/23 were reviewed by me today in clinic. They show no fractures, dislocations, or appreciable arthritic changes. MRI: Right wrist IMPRESSION: 1. Moderate abductor pollicis longus and extensor pollicis brevis tendinosis and tenosynovitis without a transverse tendon tear or tendon retraction. 2. Marrow edema within the radial styloid which may be reactive to the adjacent tendon pathology or represent an osseous contusion. No associated fracture line. 3. Degenerative tearing through the central radial aspect of the triangular fibrocartilage complex without a measurable full-thickness tear. Trace distal radioulnar joint effusion. 4. Synovial recess versus ganglion cyst dorsal to the lunate measuring up to 0.8 cm. Dictated By: Caesar Butler MD 03/10/23 Psych Appearance: grossly normal Affect: normal affect Attitude: cooperative Office Procedures Fracture Care Details: No fracture, injection Fracture Billing Code: Fracture Billing Code Assessment & Plan Assessment & Plan (1) De Quervain's tenosynovitis, right: Code(s): M65.4 - Radial styloid tenosynovitis [de Quervain] Plan Assessment & Plan: 1. Right De Quervain's tenosynovitis Positive Gemini test Began after repetitively lifting multiple heavy logs and branches in January 2023. 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 I educated her about this condition I discussed operative and non-operative treatment options The patient would like to proceed with an injection I discussed activity modification, she should limit or avoid any heavy or repetitive pinching, gripping, or scissoring activities She was fitted for a comfort cool splint to wear with with daily activity Injection #1: The risks and benefits of a steroid injection including but not limited to risk of damage to blood vessels, nerves, tendons, infection, skin bleaching, failure to improve symptoms, increased pain, and possible need for further injections or other intervention were discussed with the patient and the patient wishes to proceed with the steroid injection. Once consent was obtained, I sterilely prepped the area over the 1st dorsal compartment of the Right thumb. I then injected the 1st dorsal compartment with a combination of 1 mL of dexamethasone (4mg/ml), and 1% lidocaine. The patient tolerated the procedure well with no complications and good resolution of their symptoms prior to leaving clinic. She will follow up in 6 weeks. Scribed for Shama Brar MD by Sherman Luevano, medical record technician, on 04/18/23 at 3:06 PM, EST. Coding Level of Care Code New Pt Level 4 (22041) Diagnoses De Quervain's tenosynovitis, right M65.4 CPT Codes Fracture Care - Fracture Billing Code: Fracture Billing Code ([id number])
[2023-04-18 14:41] VITALS: BMI 24.4
== END 2023-04-18 15:24 | disposition home or self-care (01) ==
PROVIDERS: PCP Internal Medicine; Visit Provider Orthopaedic Surgery
DX: M65.4 Radial styloid tenosynovitis [de Quervain] (principal)
CPT/HCPCS: 20550; 99204

== ENCOUNTER → 2023-04-18 13:47 | Outpatient (BNVA) | payer OTHER, SELFPAY | PROVIDERS: PCP Internal Medicine; Visit Provider Orthopaedic Surgery | DX: M65.4 Radial styloid tenosynovitis [de Quervain] (principal) | CPT/HCPCS: 20550; J1100 ==

== ENCOUNTER 2023-05-24 08:56 | Outpatient (REF) | payer OTHER, SELFPAY ==
--- NOTE | ~2023-05-24 | US_ITS ---
EXAMINATION: US RETROPERITONEAL LIMITED (RENAL ONLY) CLINICAL INFORMATION: Calculus of kidney. COMPARISON: Renal ultrasound 10/24/2022 and 02/25/2022. X-ray KUB 02/17/2020 and 01/22/2020. TECHNIQUE: Real-time imaging of the kidneys. FINDINGS: RIGHT KIDNEY: 11.8 x 3.5 x 5.0 cm (SAG x AP x TRV). The kidney is normal in size, contour, and echogenicity. Renal cortical thickness is normal. No focal parenchymal lesions. Mild intrarenal collecting system fullness again identified. No hydronephrosis. 2 x 2 x 1 mm lower pole nonobstructing calculus versus vascular calcification. LEFT KIDNEY: 11.6 x 4.5 x 4.1 cm (SAG x AP x TRV). The kidney is normal in size, contour, and echogenicity. Renal cortical thickness is normal. No focal parenchymal lesions or hydronephrosis. 2 x 1 x 2 mm nonobstructing lower pole calculus versus vascular calcification. US/US renal BI IMPRESSION: Tiny nonobstructing lower pole renal calculi versus vascular calcifications. Redemonstration mild right intrarenal collecting system fullness.
== END 2023-05-24 08:57 | disposition home or self-care (01) ==
LOC: HO.US 08:56
PROVIDERS: PCP Internal Medicine; Visit Provider Nurse Practitioner Family
DX: N20.0 Calculus of kidney (principal)
CPT/HCPCS: 76775

== ENCOUNTER 2023-05-24 09:32 | Outpatient (AMB) | payer OTHER, SELFPAY ==
--- NOTE | 2023-05-24 09:41 | A.OFFVIS_ITS ---
Intake Intake Visit Reasons: 6m/US Intake Note: Patient is present for follow up kidney stones and ultrasound results Imagin05/24/23 Urology Medications: none Blood Thinner: none Precinct Commanding Officer Required: No Accompanied by: Self / Same As Patient Allergies Sulfa (Sulfonamide Antibiotics) Allergy (Severe, Verified 05/24/23 10:11) SYNCOPE/RASH morphine [MORPHINE] Allergy (Intermediate, Verified 05/24/23 10:11) NAUSEA & VOMITING, vomiting Medication List - Last Reconciled 05/24/23 by YANY Holliday levothyroxine (Synthroid) 175 mcg PO DAILY HPI HPI Comments History of Present Illness Details Mai is a pleasant 52-year-old female patient of Dr. Bennett. She has a past medical history of right-sided hearing loss, tinnitus, nephrolithiasis, and hypothyroidism. She presents to the office today for follow-up of her nephrolithiasis. When asked she reports to be doing and feeling well. Recent renal imaging results reviewed with the patient today. Right kidney with mild intrarenal fullness again identified. No hydronephrosis noted bilaterally. Bilateral 2 mm lower pole nonobstructing calculus versus vascular calcification noted. When asked she reports she continues to drink adequate amount of water daily. She discusses the health of her mom as she has recently had a heart attack. She discusses being busy taking her mom to appointments and caring for her. She otherwise denies any bothersome urinary issues or concerns. When asked she denies urinary urgency, urinary frequency, incontinence, nocturia, hematuria, dysuria, foul smelling urine, changes to urinary stream, fl ank pain, fever, and or chills. Unable to obtain urine for urinalysis however She otherwise denies any other issues or concerns at this time. [facility] Medical History Hearing loss Tinnitus Bilateral nephrolithiasis Palpitations Thyroid disease Surgical History Hx of colonoscopy Cataract extraction status of left eye Hx of tonsillectomy Hx of section History of incision and drainage Hx of carpal tunnel repair Hx of cholecystectomy Family History Father MDS (myelodysplastic syndrome) Cancer Mother No problems noted. 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 Review of Systems Const All systems reviewed & are unremarkable except as noted in HPI and below Reports no additional complaints Eyes Reports no additional complaints ENT Reports as per HPI Card Reports no additional complaints Resp Reports no additional complaints GI Reports no additional complaints Reports as per HPI Musc Reports no additional complaints Neuro Reports no additional complaints Psych Reports no additional complaints Endo Reports as per HPI Maverick/Lymph Reports no additional complaints Aller/Immun Reports no additional complaints Physical Exam Const General: cooperative, healthy appearing, comfortable, no acute distress, well developed, alert and awake Nutritional Appearance: average body habitus Orientation/consciousness: patient oriented x3 Limitations: no limitations HEENT Head: Yes normal to inspection, Yes normocephalic and Yes atraumatic Ears: hearing grossly normal bilaterally Eyes General: appearance normal, both eyes and all related structures Neck Neck: Yes normal visual inspection and Yes trachea midline Chest Chest palpation & inspection: normal inspection of the chest Resp Effort & Inspection: normal respiratory effort and able to speak in complete sentences Cardio Rate: regular rate GI Inspection: Yes normal to inspection General: Yes no CVA tenderness Back/Spine/Pelvis Back: no CVA tenderness Skin General skin exam: no rashes or lesions noted Neuro General: patient oriented x3 Extrem General: Yes normal to inspection Psych Appearance: grossly normal and well kempt Mental Status: mental status grossly normal Speech and movement: Normal speech and movement present, Clear speech present and Pressured speech present Affect: normal affect Attitude: cooperative Thought process: Normal thought process present Thought content: Normal thought content present Insight: Fair insight present (Psych) Judgement: Fair judgement present (Psych) Results Reviewed Results Reviewed: Date of Service: 05/24/23 EXAMINATION: US RETROPERITONEAL LIMITED (RENAL ONLY) FINDINGS: RIGHT KIDNEY: 11.8 x 3.5 x 5.0 cm (SAG x AP x TRV). The kidney is normal in size, contour, and echogenicity. Renal cortical thickness is normal. No focal parenchymal lesions. Mild intrarenal collecting system fullness again identified. No hydronephrosis. 2 x 2 x 1 mm lower pole nonobstructing calculus versus vascular calcification. LEFT KIDNEY: 11.6 x 4.5 x 4.1 cm (SAG x AP x TRV). The kidney is normal in size, contour, and echogenicity. Renal cortical thickness is normal. No focal parenchymal lesions or hydronephrosis. 2 x 1 x 2 mm nonobstructing lower pole calculus versus vascular calcification. IMPRESSION: Tiny nonobstructing lower pole renal calculi versus vascular calcifications. Redemonstration mild right intrarenal collecting system fullness. Assessment & Plan Assessment & Plan (1) Nephrolithiasis: Code(s): N20.0 - Calculus of kidney Plan Unable to obtain urine for urinalysis. Recent renal ultrasound results reviewed with the patient today. Discussed, educated, and stressed the importance of continuing to drink plenty of water daily. Patient otherwise denies any bothersome urinary issues or concerns. Continue adding 1 oz of lemon juice to water daily. Will obtain renal ultrasound in 6 months. Follow-up in 6 months with imaging to be completed prior; or sooner with any issues, concerns, and or questions. Orders: Orders US renal BI 6 Months N20.0 - Calculus of kidney AMB Urinalysis Automated Today Z13.9 - Encounter for screening, unspecified Patient Instructions: The patient had an opportunity to ask questions regarding the treatment plan. All questions were answered. Physical exam, labs, and imaging were discussed and reviewed in detail. As well as risks, benefits, and discussion of treatment choices. No major barriers to understanding were identified. The patient expressed understanding and agreement with the above treatment plan. The patient was made aware they should contact our office by phone for worsening of their current condition, the appearance of new symptoms, or with any questions or concerns. Compliance is encouraged with any medications and follow up testing that is ordered. It is a privilege to be allowed the opportunity to participate in? your urological care.? Again, if you have any questions or concerns If you have any questions or concerns please do not hesitate to contact me. The office is [phone]. This note is constructed using voice recognition software. While every effort has been made to ensure accuracy molding utility worker errors may have been included. Yours sincerely, YANY Holliday Coding Level of Care Code Est Pt Level 3 (79582) Diagnoses Nephrolithiasis N20.0
== END 2023-05-24 10:30 | disposition home or self-care (01) ==
PROVIDERS: PCP Internal Medicine; Visit Provider Nurse Practitioner Family
DX: N20.0 Calculus of kidney (principal)
CPT/HCPCS: 99213

== ENCOUNTER 2023-06-13 10:21 | Outpatient (REF) | payer OTHER, SELFPAY ==
--- NOTE | ~2023-06-13 | XR_ITS ---
EXAMINATION: Pelvis one view Sacrum/coccyx 3 views CLINICAL INFORMATION: Fall with pain. COMPARISON: None. TECHNIQUE: 1 view the pelvis and 3 views of the sacrum/coccyx. FINDINGS: Pelvis: The pelvic ring is intact. No visible fracture. Mild degenerative changes in the sacroiliac joints and hips. Hip alignment appears anatomic. Sacrum/coccyx: Mild degenerative changes in the sacroiliac joints and hips. No visible fracture. XR/XR sacrum coccyx min 2V IMPRESSION: No visible fracture.
--- NOTE | ~2023-06-13 | XR_ITS ---
EXAMINATION: Pelvis one view Sacrum/coccyx 3 views CLINICAL INFORMATION: Fall with pain. COMPARISON: None. TECHNIQUE: 1 view the pelvis and 3 views of the sacrum/coccyx. FINDINGS: Pelvis: The pelvic ring is intact. No visible fracture. Mild degenerative changes in the sacroiliac joints and hips. Hip alignment appears anatomic. Sacrum/coccyx: Mild degenerative changes in the sacroiliac joints and hips. No visible fracture. XR/XR pelvis 1-2V IMPRESSION: No visible fracture.
== END 2023-06-13 10:22 | disposition home or self-care (01) ==
LOC: HO.XRAY 10:21
PROVIDERS: Absent Provider Internal Medicine; PCP Internal Medicine; Visit Provider Orthopaedic Surgery
DX: Z91.81 History of falling (principal); M25.552 Pain in left hip; M25.551 Pain in right hip; M53.3 Sacrococcygeal disorders, not elsewhere classified
CPT/HCPCS: 72170; 72220

== ENCOUNTER 2023-06-13 10:21 | Outpatient (AMB) | payer OTHER, SELFPAY ==
--- NOTE | 2023-06-13 10:24 | A.OFFVIS_ITS ---
Vital Signs 06/13/23 10:29 Height 5 ft Weight 132 lb BMI 25.8 Handedness Right Intake Visit Reasons: OV- RT DeQuervain tenosynovitis Intake Note: Mai is a 52 yr old female who presents today for her follow up visit for her right hand De Quervain's tenosynovitis, s/p injection from 04/18/23. Patient states the injection offered no relief at all and she would like to discuss surgery. 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 She is the of Dr. Garza, who works here at [facility] [place]. She says her pain is unchanged and the injection gave her no relief. She would like to discuss surgery Her pain began after she was helping carry logs after chopping down some branches with her sometime in January of 2023. She has been wearing her comfort cool brace with daily activity, which she finds somewhat helpful. 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 She says she has been saving money so she can take time off of work for surgery. [facility] Medical History Hearing loss Tinnitus Bilateral nephrolithiasis Palpitations Thyroid disease Surgical History Hx of colonoscopy Cataract extraction status of left eye Hx of tonsillectomy Hx of section History of incision and drainage Hx of carpal tunnel repair Hx of cholecystectomy Family History Father MDS (myelodysplastic syndrome) Cancer Mother No problems noted. 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 Assessment & Plan Assessment & Plan (1) De Quervain's tenosynovitis, right: Code(s): M65.4 - Radial styloid tenosynovitis [de Quervain] Category: Medical Plan Assessment & Plan: 1. Right De Quervain's tenosynovitis, S/P injection Date of injection: 04/18/23 Positive Gemini test Began after repetitively lifting multiple heavy logs and branches in January 2023. 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 I educated her about this condition I discussed operative and non-operative treatment options She found no relief from her prior injection and would like to proceed with surgery. I discussed activity modification, she should limit or avoid any heavy or repetitive pinching, gripping, or scissoring activities She will continue to wear her comfort cool splint with with daily activity The risks and benefits of operative treatment were discussed with the patient and the patient wishes to proceed with surgery. These risks include, but are n ot limited to risk of damage to blood vessels, nerves, tendons, infection, recurrence, incomplete relief of preoperative symptoms, persistent pain, possible need for further surgery and the risks associated with regional blocks and anesthesia. The plan is to take the patient to the operating room sometime in the next few weeks for the following procedures: 1. Right 1st dorsal compartment release, under local All of the preoperative paperwork including the consent was reviewed today. All the patient's questions were answered. The patient understands that they will be contacted by our vascular surgery physician soon to schedule this procedure. She would like to be placed on a cancellation list to have a sooner surgery appointment She denies Diabetes, blood thinners, asthma, heart, lung, kidney issues Scribed for Shama Brar MD by Sherman Luevano, claim review medical director, on 06/13/23 at 10:55 AM, EST. Coding Level of Care Code Est Pt Level 4 (80432) Diagnoses De Quervain's tenosynovitis, right M65.4
[2023-06-13 10:29] VITALS: BMI 25.8
== END 2023-06-13 11:03 | disposition home or self-care (01) ==
PROVIDERS: PCP Internal Medicine; Visit Provider Orthopaedic Surgery
DX: M65.4 Radial styloid tenosynovitis [de Quervain] (principal)
CPT/HCPCS: 99214

== ENCOUNTER 2023-07-13 10:09 | Day surgery (SDC) | payer OTHER, SELFPAY ==
[2023-07-13 10:22] VITALS: BMI 26.8
--- NOTE | 2023-07-13 10:53 | MHC.SHP ---
Pre-Procedural Eval Section A - 24 Hr Update-Section A only Date of Service: 07/13/23 The patient is an INPATIENT: No Changes since office visit: No Cold of Flu in the past 2 weeks, No New Medical Problems, No Changes in Medication and No Patient answered all questions The patient has been examined within 24 hours of the surgical procedure. The History & Physical has been completed within 30 days and I have reviewed it.: Yes Section B - Complete if H&P > 30 days Chief Complaint: Radial styloid tenosynovitis [de Quervain] Allergies: Allergies Allergy/AdvReac Type Severity Reaction Status Date / Time Sulfa (Sulfonamide Allergy Severe SYNCOPE/RADHA Verified 07/13/23 10:23 Antibiotics) H morphine [MORPHINE] AdvReac Intermediate NAUSEA & Verified 07/13/23 10:23 VOMITING, vomiting Exam Exam Comment: Right De Quervain tenosynovitis Plan Diagnosis/Plan: Unchanged I have reviewed the history and physical and performed a pertinent physical examination on my patient. No changes have occurred unless specified. Time Spent With Patient Time: Total time managing care of this patient today ____ minutes.
--- NOTE | 2023-07-13 10:53 | W.PM.OPN ---
Operative Note Operative Note Date of Service: 07/13/23 Narrative: Operative Note Preop diagnosis: 1. Right DeQuervain's tenosynovitis Postop diagnosis: 1. Right DeQuervain's tenosynovitis Procedure: 1. Right 1st dorsal compartment release Surgeon: Shama Brar MD Anesthesia: local block using 1% lidocaine with epinephrine Findings: Thickened 1st dorsal compartment. Mild hourglass deformity of the APL and EPB tendons. APL and EPB tendons in 1 compartment EBL: Less than 5 mL Tourniquet time: None Specimens: None Complications: None Disposition: Brought to recovery room in stable condition Plan: Follow-up for 7-10 days for wound check and suture removal Indications: The patient is 52 years old, with right DeQuervain's tenosynovitis that has been unresponsive to nonoperative management. The risks and benefits of operative treatment including but not limited to risk of damage to blood vessels, nerves, tendons, infection, persistent pain, persistent symptoms, recurrence or possible need for additional surgery were discussed with the patient and the patient wishes to proceed with surgery. Procedure: Once consent was obtained a local block was performed in the preop area using a combination of 1% lidocaine with epinephrine. The patient was then brought back to the operating suite and placed on the operative table in supine position. A tourniquet was applied to the proximal aspect of the right upper extremity and the limb was prepped and draped in a standard surgical fashion. Once assured that we had a good block, a 1.5 cm longitudinal incision was made centered over the 1st dorsal compartment as it passed over the radial styloid of the right wrist. The incision was made through the skin to the subcutaneous tissues using a #15 blade. Careful dissection was made down to the level of the 1st dorsal compartment using tenotomy scissors, with care being taken to protect the nearby branches of the superficial radial nerve. Once the 1st dorsal compartment was exposed, A longitudinal incision was made in the 1st dorsal compartment 1st using a #15 blade, then using tenotomy scissors under direct visualization. The 1st dorsal compartment was noted to be thickened. Following our release, we saw smooth gliding abductor pollicis longus and extensor pollicis brevis tendons. Once satisfied with our 1st dorsal compartment release the wound was copiously irrigated with normal saline and hemostasis was obtained with a brief period of local pressure. Theskin edges were reapproximated with some 5.0 nylon suture material. A sterile dressing was applied. The patient appears to have tolerated the procedure well and with no complications. All digits were well vascularized at the conclusion of the case.
[2023-07-13 12:36] VITALS: BP 130/80; PULSE 62; RESP 20; O2SAT 97
== END 2023-07-13 12:38 | disposition home or self-care (01) ==
PROVIDERS: PCP Internal Medicine; Visit Provider Orthopaedic Surgery
PROC: (CPT 25000; principal; 2023-07-13 11:30)
DX: M65.4 Radial styloid tenosynovitis [de Quervain] (principal); Z88.2 Allergy status to sulfonamides
CPT/HCPCS: 25000; J0171

== ENCOUNTER → 2023-07-13 10:09 | Outpatient (BNV) | payer OTHER, SELFPAY | PROVIDERS: PCP Internal Medicine; Visit Provider Orthopaedic Surgery | DX: M65.4 Radial styloid tenosynovitis [de Quervain] (principal) | CPT/HCPCS: 25000 ==

== ENCOUNTER 2023-07-26 12:13 | Outpatient (AMB) | payer OTHER, SELFPAY ==
--- NOTE | 2023-07-26 12:15 | A.OFFVIS_ITS ---
Vital Signs 07/26/23 12:23 Height 5 ft Weight 137 lb BMI 26.8 Intake Visit Reasons: PO RT 1st DC release 07/06/23 AR Intake Note: Mai 52 year old female presents today for a post operative visit of right hand 1st DC release 07/06/23 AR. Patient states that she is doing well, she has no concerns at this time. 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 She is the of Dr. Garza, who works here at [facility] [place] [facility] [place]. She says she is doing well & is already happy with the results of her surgery. 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 She says she has been saving money so she can take time off of work for surgery. [facility] Medical History Hearing loss Tinnitus Bilateral nephrolithiasis Palpitations Thyroid disease Surgical History Hx of colonoscopy Cataract extraction status of left eye Hx of tonsillectomy Hx of section History of incision and drainage Hx of carpal tunnel repair Hx of cholecystectomy Family History Father MDS (myelodysplastic syndrome) Cancer Mother No problems noted. 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 Sutures removed and Steri-Strips applied She can make a fist and extend all her digits Negative gentle Gemini test today Sensation is intact Cap refill is brisk Psych Appearance: grossly normal Affect: normal affect Attitude: cooperative Assessment & Plan Assessment & Plan (1) De Quervain's tenosynovitis, right: Code(s): M65.4 - Radial styloid tenosynovitis [de Quervain] Category: Medical Plan Assessment & Plan: 1. 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 The patient appears to be doing well post-operatively I educated her about the post-operative course I discussed activity modifications, she is to lift nothing heavier than a cellphone for the next two weeks. She should limit or avoid any heavy or repetitive pinching or gripping activities She will perform gentle ROM exercises at home She should avoid any underwater activities for the next 5 days She should gently massage about the incision site to reduce the risk of hypersensitivity She can follow up prn Scribed for Shama Brar MD by homero Wilson, on 07/26/23 at 12:20 PM, EST. Scribe Plan - Not visible on output: Scribed for Shama Brar MD by homero Wilson, on [ ] at [ ], EST. Coding Level of Care Code Global (05167) Diagnoses De Quervain's tenosynovitis, right M65.4
[2023-07-26 12:23] VITALS: BMI 26.8
== END 2023-07-26 12:40 | disposition home or self-care (01) ==
PROVIDERS: PCP Internal Medicine; Visit Provider Orthopaedic Surgery
DX: M65.4 Radial styloid tenosynovitis [de Quervain] (principal)
CPT/HCPCS: 99024

== ENCOUNTER → 2023-07-26 12:13 | Outpatient (BNVA) | payer OTHER, SELFPAY | PROVIDERS: PCP Internal Medicine; Visit Provider Orthopaedic Surgery ==

== ENCOUNTER 2023-08-05 21:33 | Emergency (ER) | payer OTHER, SELFPAY ==
--- NOTE | 2023-08-05 | ECG_ITS ---
Test Reason : PALPITATIONS Blood Pressure : / mmHG Vent. Rate : 072 BPM Atrial Rate : 072 BPM P-R Int : 150 ms QRS Dur : 080 ms QT Int : 408 ms P-R-T Axes : 033 059 049 degrees QTc Int : 446 ms Normal sinus rhythm Normal ECG When compared with ECG of 27-DEC-2009 16:03, No significant change was found Referred By: Generic ED Physician Electronically Signed By:RASHARD GALLEGO MD
[2023-08-05 21:36] VITALS: BP 119/61; PULSE 77; RESP 20; TEMP 37.2; O2SAT 99; BMI 25.4
[2023-08-05 22:03] LABS: MANUAL DIFF FLAG NO
[2023-08-05 22:05] LABS: Basophils Percent Auto 0.6 % (0-2); Eosinophils Absolute Auto 0.3 X10*3/uL (0.0-0.4); Eosinophils Percent Auto 3.6 % (0-4); Hematocrit 40.7 % (37.0-47.0); Hemoglobin 14.3 g/dl (12.0-16.0); Imm Gran Abs Auto 0.02 X10*3/uL (0.00-0.03); Imm Gran Pct Auto 0.3 % (0.0-0.4); Lymphocytes Absolute Auto 3.1 X10*3/uL (1.2-4.9); Lymphocytes Percent Auto 44.7 % (20-40); Mean Corpuscular HGB Conc 35.1 g/dl (31.0-35.0); Mean Corpuscular Hemoglobin 30.8 pg (27.0-33.0); Mean Corpuscular Volume 87.7 fL (80.0-98.0); Mean Platelet Volume 8.8 fL (9.4-12.3); Monocytes Absolute Auto 0.5 X10*3/uL (0.1-1.2); Monocytes Percent Auto 7.2 % (2-11); Neutrophils Absolute Auto 3.1 x10*3/uL (2.0-8.3); Neutrophils Percent Auto 43.6 % (45-73); Platelet Count 272 X10*3/uL (160-400); Red Blood Count 4.64 X10*6/uL (4.20-5.50); Red Cell Distribution Width 12.8 % (11.0-16.0)
[2023-08-05 22:18] LABS: Alanine Aminotransferase 21 U/L (0-31); Albumin Level 3.7 g/dL (3.5-5.0); Alkaline Phosphatase 65 U/L (39-117); Anion Gap 12 (12-20); Aspartate Amino Transferase 20 U/L (5-31); Bilirubin Total 0.3 mg/dL (0.0-1.0); Blood Urea Nitrogen 13 mg/dL (9-16); Calcium 9.1 mg/dL (8.4-10.2); Carbon Dioxide 26 mmol/L (22-29); Chloride 109 mmol/L (96-108); Creatinine Clr Calc Pharmacy 70.6; Estimated Glomerular Filt Rate > 60; Glucose Random 124 mg/dL (60-115); Potassium 3.9 mmol/L (3.3-5.1); Sodium 143 mmol/L (135-145); Total Protein 6.4 g/dL (6.5-8.0)
[2023-08-05 22:27] LABS: Troponin-I High Sensitivity < 2.7 ng/L (<3.5-17.0)
[2023-08-05 22:39] VITALS: BP 111/66; PULSE 69
--- NOTE | 2023-08-05 22:39 | MHC.EDTECH ---
Patient brought in from the waiting room,changed into hospital attire,placed on the monitor and storage bin tender,orthostatic vitals taken,and call anne in reach
[2023-08-05 22:40] VITALS: BP 104/63; BP 114/66; PULSE 73; PULSE 75
[2023-08-05 22:41] LABS: Influenza A PCR NEGATIVE (Negative); Influenza B PCR NEGATIVE (Negative); Resp Syncy Virus RNA Qual PCR NEGATIVE (Negative); SARS COV2 PCR INHOUSE NEGATIVE (Negative)
--- NOTE | 2023-08-05 22:45 | ED_ITS ---
HPI - Arrhythmia/Palpitations General Chief Complaint: Arrhythmia/Palpitations Stated Complaint: Palpitations/Light headed Time Seen by Provider: 08/05/23 22:44 Source: patient Mode of arrival: ambulatory Limitations: no limitations History of Present Illness ED Provider: mercedes PATTON narrative: Patient's history of hypothyroidism under increased stress been complaining of palpitation off and on for some time got worse today felt slightly dizzy no syncope patient is on same dosage of levothyroxine for last few years last time thyroid function was test was about year ago patient feels episodes of tachycardia patient has similar episode few years ago when she had a Holter monitoring done which was negative for any arrhythmias no chest shaver no fever no chills Related Data Home Medications ?Medication ?Instructions ?Recorded ?Confirmed levothyroxine 175 mcg tablet 175 mcg PO DAILY 04/28/22 10/05/22 (Synthroid) Previous Rx's ?Medication ?Instructions ?Recorded levothyroxine 112 mcg capsule 112 mcg PO DAILY #30 caps 08/05/23 Allergies Allergy/AdvReac Type Severity Reaction Status Date / Time Sulfa (Sulfonamide Allergy Severe SYNCOPE/RADHA Verified 08/05/23 21:39 Antibiotics) H morphine [MORPHINE] AdvReac Intermediate NAUSEA & Verified 08/05/23 21:39 VOMITING, vomiting Review of Systems 2 Review of Systems: Yes all other systems are reviewed and are negative PMFSH Past Medical History Medical History Hearing loss Tinnitus Bilateral nephrolithiasis Palpitations Thyroid disease Surgical History Hx of colonoscopy Cataract extraction status of left eye Hx of tonsillectomy Hx of section History of incision and drainage Hx of carpal tunnel repair Hx of cholecystectomy Family History Family History Father MDS (myelodysplastic syndrome) Cancer Mother No problems noted. 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 Oriented X3. No acute distress. Eyes: No pallor or icterus ENT: Pharynx normal. Oral Mucosa moist Neck: Normal inspection. Neck supple. CVS: Normal heart rate and rhythm. Pulses normal. Respiratory: No respiratory distress. Equal air entry bilateral, no wheezing/rales/rhonchi Abdomen: Soft and nontender. Bowel sounds are present, no mass palpable, no CVA tenderness Skin: Skin warm and dry. Normal skin color. Normal skin turgor. Extremities: No lower extremity edema. No calf tenderness Neuro: Oriented X 3. No motor deficit. No sensory deficit.No cerebellar signs , cranial nerves II-XII intact Medical Decision Making Medical Decision Making [facility] Narrative: Patient has hypothyroidism with episodes of palpitation increased stress and caffeine intake during stay in the ER patient security monitor did not show any arrhythmia workup showed TSH of 0.01 advised patient has decreased dose of levothyroxine to 112 mcg free T4 is 1.4 Differential Diagnosis Differential Diagnoses: The differential diagnosis associated with the presentation includes SVT/atrial fibrillation/atrial flutter/anxiety Admission/Observation Consideration of admission/observation: Escalation of care including admission/observation considered Lab Data [facility] Lab Attestation statement: I reviewed the patient's lab results. 08/05/23 22:00 08/05/23 22:00 Labs: Lab Results 08/05/23 Range/Units 22:00 WBC 7.0 (4.8-10.8) X10*3/uL RBC 4.64 (4.20-5.50) X10*6/uL Hgb 14.3 (12.0-16.0) g/dl Hct 40.7 (37.0-47.0) % MCV 87.7 (80.0-98.0) fL MCH 30.8 (27.0-33.0) pg MCHC 35.1 H (31.0-35.0) g/dl RDW 12.8 (11.0-16.0) % Plt Count 272 (160-400) X10*3/uL MPV 8.8 L (9.4-12.3) fL Immature Gran % (Auto) 0.3 (0.0-0.4) % Neut % (Auto) 43.6 L (45-73) % Lymph % (Auto) 44.7 H (20-40) % Kimble % (Auto) 7.2 (2-11) % Eos % (Auto) 3.6 (0-4) % Baso % (Auto) 0.6 (0-2) % Lymph # (Auto) 3.1 (1.2-4.9) X10*3/uL Kimble # (Auto) 0.5 (0.1-1.2) X10*3/uL Eos # (Auto) 0.3 (0.0-0.4) X10*3/uL Baso # (Auto) 0.0 (0.0-0.2) X10*3/uL Abs Immat Gran (auto) 0.02 (0.00-0.03) X10*3/uL Absolute Neuts (auto) 3.1 (2.0-8.3) x10*3/uL Absolute Nucleated RBC 0.000 (0.0-0.012) X10*3/uL Nucleated RBC % (auto) 0.0 (0.0-0.2) /100WBC Sodium 143 (135-145) mmol/L Potassium 3.9 (3.3-5.1) mmol/L Chloride 109 H (96-108) mmol/L Carbon Dioxide 26 (22-29) mmol/L Anion Gap 12 (12-20) BUN 13 (9-16) mg/dL Creatinine 0.74 (0.5-1.4) mg/dL Estim Creat Clear Calc 70.6 Estimated GFR > 60 Random Glucose 124 H (60-115) mg/dL Calcium 9.1 (8.4-10.2) mg/dL Magnesium 2.0 (1.6-2.6) mg/dL Total Bilirubin 0.3 (0.0-1.0) mg/dL AST 20 (5-31) U/L ALT 21 (0-31) U/L Alkaline Phosphatase 65 (39-117) U/L Troponin I High Sens < 2.7 (<3.5-17.0) ng/L Total Protein 6.4 L (6.5-8.0) g/dL Albumin 3.7 (3.5-5.0) g/dL TSH 0.01 L (0.32-4.0) uIU/mL Free T4 1.40 (0.71-1.85) ng/dL Influenza Type A (PCR) NEGATIVE (Negative) Influenza Type B (PCR) NEGATIVE (Negative) RSV RNA Qual (PCR) NEGATIVE (Negative) SARS-CoV-2 RNA (RT-PCR) NEGATIVE (Negative) Independent Interpretation I performed an independent interpretation of an: EKG Interpretation: Normal sinus rhythm heart rate 72 beats per minute normal interval normal axis no acute ST T wave changes no acute ischemia Discharge Plan Discharge Clinical Impression: Palpitations, Hyperthyroidism Patient Disposition: Home, Self-Care Instructions: Heart Palpitations (ED), Hyperthyroidism (ED) Additional Instructions: Avoid caffeinated drinks Hold levothyroxine until tomorrow Decrease the dose of levothyroxine 112 mcg daily Follow up with your superintendent fish hatchery Follow with junior mechanical engineer if palpitation continues for event monitoring Prescriptions: New levothyroxine 112 mcg capsule 112 mcg PO DAILY Qty: 30 0RF No Action levothyroxine [Synthroid] 175 mcg tablet 175 mcg PO DAILY Referrals: Adair Ruiz MD [Physician] - 2 weeks Interventions: ED Discharge Assessment Last Done: 08/05/23 23:52 Discharge Date/Time: 08/05/23 23:54 Print Language: Martiniquais
[2023-08-05 23:28] LABS: Thyroid Stimulating Hormone 0.01 uIU/mL (0.32-4.0)
[2023-08-05 23:49] VITALS: BP 98/66; PULSE 71; RESP 16; TEMP 36.4; O2SAT 97
[2023-08-05 23:52] VITALS: BP 98/66; PULSE 71; RESP 16; TEMP 36.4; O2SAT 97
== END 2023-08-05 23:54 | disposition home or self-care (01) ==
PROVIDERS: Emergency Provider Internal Medicine; PCP Internal Medicine
DX: R00.2 Palpitations (principal); E05.90 Thyrotoxicosis, unspecified without thyrotoxic crisis or storm; Z03.818 Encounter for observation for suspected exposure to other biological agents ruled out
CPT/HCPCS: 0241U; 80053; 83735; 84439; 84443; 84484; 85025; 93005; 99283; 99284

== ENCOUNTER → 2023-08-05 21:59 | Outpatient (BNV) | payer OTHER, SELFPAY | PROVIDERS: Emergency Provider Internal Medicine; PCP Internal Medicine; Visit Provider Internal Medicine Cardiovascular Disease | DX: R00.2 Palpitations (principal) | CPT/HCPCS: 93010 ==

== ENCOUNTER 2023-09-01 13:38 | Outpatient (AMB) | payer OTHER, SELFPAY ==
--- NOTE | 2023-09-01 13:40 | MHC.OFFVIS ---
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 She has intermittent palpitations for years. Recently, on 08/04 she went to the emergency room due to the palpitations worsening and her thyroid levels were found to be abnormal. She has a extensive family history of the maker heart attack in her family so she is concerned. She has not noticed any chest pains or shortness of breath. She eats very healthy and hydrates with about 80 oz of water a day. She eats low carb/sugar and walks often. 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 [facility] [place] Medical History Family history of coronary arteriosclerosis Hearing loss Tinnitus Bilateral nephrolithiasis Palpitations Thyroid disease Surgical History Hx of colonoscopy Cataract extraction status of left eye Hx of tonsillectomy Hx of section History of incision and drainage Hx of carpal tunnel repair Hx of cholecystectomy Family History Father MDS (myelodysplastic syndrome) Cancer Mother Heart attack Heart failure H/O heart artery stent Social History Household Members Other:: , adult children Are you a primary childbirth and infant care teacher to a significant other at home: No Do you presently have visiting nurse or other home services: No Patient Tobacco Use Status: Never used Tobacco Current occupational status: employed 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 Review of Systems Const Denies chills, Denies fatigue, Denies fever(s), Denies frequent falls, Denies weakness, Denies weight gain and Denies weight loss ENT Denies dizziness Card Denies chest pain, Denies leg edema, Denies lightheadedness, Denies palpitations, Denies dyspnea and Denies dyspnea on exertion Resp Denies cough, Denies dyspnea and Denies dyspnea on exertion GI Denies hematochezia Musc Denies abnormal gait, Denies muscle weakness, Denies numbness, Denies radiating pain into limb and Denies tingling Neuro Denies abnormal gait, Denies dizziness, Denies frequent falls, Denies numbness, Denies tingling and Denies weakness Endo Denies fatigue and Denies palpitations Physical Exam Vital Signs: Last Vital Signs Pulse 75 09/01/23 13:41 BP 100/66 09/01/23 13:41 BMI result Body Mass Index 27.8 Assessment & Plan Assessment & Plan (1) Palpitations: Comment: occasional Code(s): R00.2 - Palpitations Category: Medical (2) Family history of coronary arteriosclerosis: Code(s): Z82.49 - Family history of ischemic heart disease and other diseases of the circulatory system Category: Medical Plan Intermittent palpations with sudden increase in them. Possibly related to abnormal thyroid levels but need to rule out arrhythmias and structural changes - will order holter and echocardiogram. Patients family history has had three maker myocardial infarctions - in her mother, mothers brother, and her mothers grandmother. Her mothers brother coded 3 times after his. Will get CTA to assess for coronary artery status due to extensive family history of myocardial infarctions. Orders: Orders CA echo transthoracic complete 09/01/23 R00.2 - Palpitations ECG 3 day holter monitor 09/01/23 R00.2 - Palpitations CT Cardiac Coronary Angio 09/01/23 Z82.49 - Family history of ischemic heart disease and other diseases of the circulatory system Coding Level of Care Code New Pt Level 4 (05984) Diagnoses Palpitations R00.2 Family history of coronary arteriosclerosis Z82.49
[2023-09-01 13:41] VITALS: BP 100/66; PULSE 75; BMI 27.8
== END 2023-09-01 14:10 | disposition home or self-care (01) ==
PROVIDERS: PCP Internal Medicine; Visit Provider Nurse Practitioner
DX: R00.2 Palpitations (principal); Z82.49 Family history of ischemic heart disease and other diseases of the circulatory system
CPT/HCPCS: 99204

== ENCOUNTER → 2023-09-01 13:38 | Outpatient (BNVA) | payer OTHER, SELFPAY | PROVIDERS: PCP Internal Medicine; Visit Provider Nurse Practitioner | DX: R00.2 Palpitations (principal); Z82.49 Family history of ischemic heart disease and other diseases of the circulatory system ==

== ENCOUNTER 2023-09-21 12:46 | Outpatient (AMB) | payer OTHER, SELFPAY ==
--- NOTE | 2023-09-21 13:01 | A.OFFVIS_ITS ---
Vital Signs 09/21/23 13:02 Height 5 ft Weight 144 lb 9.972 oz BMI 28.2 BP 102/64 Blood Pressure Location Lt brachial Position Sitting Pulse 76 Pulse Source Pulse Oximeter Intake Visit Reasons: Hypothyroidism-confirmed Intake Note: New patient present today for Hypothyroidism, referred by PCP. Would like to discuss medication regimen due to feeling tired, having anxiety and weight gain. 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 Previously seen by myself First diagnosed with Hypothyroidism [] with labs revealing []. Currently using thyroid hormone. Levothyroxine 175 mcg alt with 112 ug Denies + fatigue, +weight gain 15 lbs , -cold intolerance, +dry skin, -hair loss,- constipation. There is no hx of hyperlipidemia . Denies obstructive sx of goiter . Denies consuming any kelp or seaweed. Denies taking amiodarone. Biotin: No PFSH Medical History (Updated 09/21/23 @ 13:13 by See Franco MD) Hypothyroid Family history of coronary arteriosclerosis Hearing loss Tinnitus Bilateral nephrolithiasis Palpitations Thyroid disease Surgical History Hx of hand surgery Hx of colonoscopy Cataract extraction status of left eye Hx of tonsillectomy Hx of section History of incision and drainage Hx of carpal tunnel repair Hx of cholecystectomy Family History Father MDS (myelodysplastic syndrome) Cancer Mother Heart attack Heart failure H/O heart artery stent Social History Household Members Other:: , adult children Are you a primary family day care provider to a significant other at home: No Do you presently have visiting nurse or other home services: No Patient Tobacco Use Status: Never used Tobacco Current occupational status: employed 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 Thyroid g land measure gms . No nodules or tenderness palpated. There is no cervical adenopathy palpated. Lungs CTA. Heart S1, S2 Reg R/R -M/R/G. Abdominal exam benign. Skin exam reveals absence of dryness or thyroid dermopathy or vitiligo. Nail exam reveals absence of thyroid acropachy or oncholysis. Neurologic exam reveals 2+ reflexes . Muscle Strength is 5/5 proximally. There are no tremors in upper extremities. Assessment & Plan Assessment & Plan (1) Hypothyroid: Code(s): E03.9 - Hypothyroidism, unspecified Category: Medical Plan: This is a 53-year-old white female with a history of hypothyroidism currently being treated with 112 mcg alternating with 175 mcg levothyroxine. She has a suppressed TSH chronically and feels hyperthyroid symptoms Plan is to decrease levothyroxine to 150 mcg q.d. and change to branded Synthroid. Will then recheck TSH and free T4 in 4-6 weeks' time adjust Synthroid accordingly. Patient does describe nausea associated with taking levothyroxine if this persists on the Synthroid, could switch to Tirosint in future Orders: Orders Free T4 (Free Thyroxine) 6 Weeks E03.9 - Hypothyroidism, unspecified Thyroid Stimulating Hormone 6 Weeks E03.9 - Hypothyroidism, unspecified Medications: New Synthroid (levothyroxine) 150 mcg PO DAILY 30 tabs 5RF NS Discontinued levothyroxine Discontinued Reason: Doctor's Order 112 mcg PO DAILY 30 caps 0RF Coding Level of Care Code Est Pt Level 3 (61227) Diagnoses Hypothyroid E03.9
[2023-09-21 13:02] VITALS: BP 102/64; PULSE 76; BMI 28.2
== END 2023-09-21 13:36 | disposition home or self-care (01) ==
PROVIDERS: PCP Internal Medicine; Visit Provider Internal Medicine Endocrinology, Diabetes & Metabolism
DX: E03.9 Hypothyroidism, unspecified (principal)
CPT/HCPCS: 99213

== ENCOUNTER → 2023-09-21 12:46 | Outpatient (BNVA) | payer OTHER, SELFPAY | PROVIDERS: PCP Internal Medicine; Visit Provider Internal Medicine Endocrinology, Diabetes & Metabolism ==

== ENCOUNTER → 2023-10-03 13:55 | Outpatient (REF) | payer OTHER, SELFPAY ==
--- NOTE | 2023-10-03 14:01 | CA_ITS ---
Transthoracic Echocardiogram Patient (Last, First, Middle): Mai Garza D Gender: Female Date of : 1970 Age: 53 Procedure Date: 10/03/2023 Procedure Type: Transthoracic Echocardiogram Location: OP Height: 152.4 cm Weight: 61.24 kg BSA: 1.58 m2 Heart Rate: bpm BP: 100 / 68 mmHg Trucking Manager: LUCITA Referring MD: Monie Terry GENETIC COUNSELLOR Symptoms: R00.2 - Palpitations Study Quality: Adequate ECG Rhythm: Sinus Conclusions: - The left ventricular systolic function is normal. The calculated ejection fraction is 65% by biplane method. - No obvious valvular pathology seen on this study. Findings Left Ventricle Normal left ventricular cavity size. There is normal left ventricular wall thickness. The left ventricular systolic function is normal. The calculated ejection fraction is 65% by biplane method. There is no evidence of regional wall motion abnormalities. Diastolic function is normal for age. LV peak GLS -20.9% (normal). Right Ventricle Normal right ventricular cavity size and systolic function. Atria Both atria are normal in size. Aortic Valve There is a normal trileaflet aortic valve. There is no aortic valve stenosis. There is no aortic valve regurgitation. Mitral Valve The mitral valve appears normal. There is no mitral valve stenosis. Trace to mild mitral regurgitation. Pulmonic Valve The pulmonic valve is likely normal. Tricuspid Valve Normal tricuspid valve structure. There is trace tricuspid valve regurgitation. There is no evidence of pulmonary hypertension. Great Vessels The asc aorta and aortic arch are normal in size. Venous The inferior vena cava is normal in size and collapses greater than 50% with inspiration. Pericardium/Pleural There is no evidence of pericardial effusion. Prior Study Comparison No prior study available for comparison. Recommendations, Care & Conclusions No obvious valvular pathology seen on this study. Measurements 2D Linear Measurements IVSd: 0.80 0.6-0.9/0.6-1.0 cm LVIDd: 4.37 3.9-5.3/4.2-5.9 cm LVIDd Index: 2.77 2.4-3.2/2.2-3.1 cm/m2 LVIDs: 2.70 2.0-3.6 cm LVPWd: 0.70 0.7-1.1 cm LA Diam: 2.70 2.7-3.8/3.0-4.0 cm LAIDs Index: 1.71 1.5-2.3 cm/m2 LV Mass: 123.56 67-162/88-224 g LV Mass Index: 78.20 43-95/49-115 g/m2 LVOT Diam: 1.80 3.0+(-)1.3 cm 2D Systolic Function EF 4C: 67.30 >55% EF 2C: 60.10 >55% EF BiP: 64.70 >55% Mitral Valve MV Pk E: 0.75 MV PK A: 0.56 MV Decel Time: 249.00 E/A: 1.30 E'Lateral: 13.60 E'Medial: 10.40 E/E' Med: 7.30 E/E' Lat: 5.50 PHT: 73.00 MVA PHT: 3.01 Decel [place]: 3.03 Aortic Valve AoV Pk Harrison: 1.56 AoV Mn Harrison: 1.07 AoV VTI: 0.34 AoV Pk Grad: 10.00 Aov Mn Grad: 5.00 LAMBERTO Cont.VTI: 1.61 LVOT LVOT Pk Harrison: 1.06 LVOT Mn Harrison: 0.69 LVOT VTI: 0.21 LVOT Pk Grad: 4.00 LVOT Mn Grad: 2.00 LVOT Diam: 1.80 LVOT Area: 2.54 Diastolic Function MV Pk E: 0.75 MV Pk A: 0.56 E/A: 1.30 E'Medial: 10.40 E/E' Med: 7.30 E' Laterial: 13.60 E/E' Lat: 5.50 Right Ventricle TAPSE (mm): 20.00 TVS' Harrison: 11.70 Tricuspid Valve TR Pk Harrison: 1.71 TR Pk Grad: 12.00 RA Press: 3.00 RVSP: 15.00 Great Vessels Aorta Sinus of Valsalva: 2.94 2.0-3.[address] Ridge: 2.23 1.7-3.4 cm Ao Asc: 3.00 2.1-3.4 cm Ao Arch: 2.40 Updated in Other Vendor System with Status of Final Nito Choi MD electronically signed on 10/10/2023 9:58:44 AM with status of Final
--- NOTE | 2023-10-03 14:01 | HM_ITS ---
Conclusion: 1. Patient was monitored for total period of 3 days 2. Baseline was normal sinus rhythm with average heart of 75 beats per minute 3. No significant arrhythmias or pauses noted 4. No patient reported events MTDD
== END ==
LOC: HO.CARD 13:55
PROVIDERS: PCP Internal Medicine; Visit Provider Nurse Practitioner
DX: R00.2 Palpitations (principal)
CPT/HCPCS: 93242; 93306; 93356

== ENCOUNTER → 2023-10-03 14:01 | Outpatient (BNV) | payer OTHER, SELFPAY | PROVIDERS: PCP Internal Medicine; Visit Provider Internal Medicine | DX: R00.1 Bradycardia, unspecified (principal) | CPT/HCPCS: 93244; 93306; 93356 ==

== ENCOUNTER 2023-11-13 08:11 | Outpatient (REF) | payer OTHER, SELFPAY ==
--- NOTE | ~2023-11-13 | US_ITS ---
EXAMINATION: US RETROPERITONEAL LIMITED (RENAL ONLY) CLINICAL INFORMATION: Calculus of kidney. COMPARISON: Renal ultrasound 05/24/2023 and 10/24/2022. X-ray abdomen KUB 02/17/2020 and 01/22/2020. TECHNIQUE: Real-time imaging of the kidneys. FINDINGS: Submitted for interpretation on December 13, 2023. RIGHT KIDNEY: 12.2 x 3.8 x 5.3 cm (SAG x AP x TRV). The kidney is normal in size, contour, and echogenicity. Renal cortical thickness is normal. No calculi or focal parenchymal lesions. No hydronephrosis. Extrarenal pelvis. LEFT KIDNEY: 11.0 x 4.9 x 4.5 cm (SAG x AP x TRV). The kidney is normal in size, contour, and echogenicity. Renal cortical thickness is normal. No calculi or focal parenchymal lesions. No hydronephrosis. US/US renal BI IMPRESSION: No hydronephrosis. No gross nephrolithiasis.. Electronically signed by: Yves Luz MD 12/13/2023 11:02 AM MARY GILBERT
== END 2023-11-13 08:12 | disposition home or self-care (01) ==
LOC: HO.US 08:11
PROVIDERS: PCP Internal Medicine; Visit Provider Nurse Practitioner Family
DX: N20.0 Calculus of kidney (principal)
CPT/HCPCS: 76775

== ENCOUNTER → 2023-11-13 08:12 | Outpatient (BNV) | payer OTHER, SELFPAY | PROVIDERS: PCP Internal Medicine; Visit Provider Radiology Diagnostic Radiology | DX: N20.0 Calculus of kidney (principal) | CPT/HCPCS: 76775 ==

== ENCOUNTER 2023-11-22 10:36 | Outpatient (AMB) | payer OTHER, SELFPAY ==
--- NOTE | 2023-11-22 10:36 | A.OFFVIS_ITS ---
Intake Visit Reasons: 6m/US(set) Intake Note: Patient presents today for tele visit follow up kidney stones and ultrasound results Imagin11/13/23 Urology Medications: none Blood Thinner: none Clinical Statistics Manager Required: No Accompanied by: Self / Same As Patient Allergies Sulfa (Sulfonamide Antibiotics) Allergy (Severe, Verified 11/30/23 10:57) SYNCOPE/RASH morphine [MORPHINE] Adverse Reaction (Intermediate, Verified 11/30/23 10:57) NAUSEA & VOMITING, vomiting Medication List - Last Reconciled 11/22/23 by YANY Holliday Synthroid (levothyroxine) 150 mcg PO DAILY NS HPI Comments Details: Mai is a pleasant 53-year-old female patient of Dr. Bennett. She has a past medical history of right-sided hearing loss, tinnitus, nephrolithiasis, and hypothyroidism. She is being followed up on today via video telehealth for her history of nephrolithiasis. Recent renal imaging results reviewed with the patient today. Bilateral kidneys are normal in size, contour and echogenicity. Bilateral kidneys with no lesions, calculi, or hydronephrosis noted. In d iscussion with the patient today she reports to be doing and feeling well. She reports to be healing well from her recent right hand tendon surgery in July. She currently denies any bothersome urinary issues or concerns. She discusses her 's upcoming surgery in February for hip replacement. When asked she denies denies any bothersome urinary issues or concerns. She denies urinary urgency, urinary frequency, incontinence, nocturia, hematuria, dysuria, foul smelling urine, changes to urinary stream, flank pain, fever, and or chills. [facility] Medical History Hypothyroid Family history of coronary arteriosclerosis Hearing loss Tinnitus Bilateral nephrolithiasis Palpitations Thyroid disease Surgical History Hx of hand surgery Hx of colonoscopy Cataract extraction status of left eye Hx of tonsillectomy Hx of section History of incision and drainage Hx of carpal tunnel repair Hx of cholecystectomy Family History Father MDS (myelodysplastic syndrome) Cancer Mother Heart attack Heart failure H/O heart artery stent Social History Household Members Other:: , adult children Are you a primary health care assistant to a significant other at home: No Do you presently have visiting nurse or other home services: No Patient Tobacco Use Status: Never used Tobacco Current occupational status: employed 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 Review of Systems Const All systems reviewed & are unremarkable except as noted in HPI and below Reports no additional complaints Eyes Reports no additional complaints ENT Reports as per HPI Card Reports no additional complaints Resp Reports no additional complaints GI Reports no additional complaints Reports as per HPI Musc Reports no additional complaints Neuro Reports no additional complaints Psych Reports no additional complaints Endo Reports as per HPI Maverick/Lymph Reports no additional complaints Aller/Immun Reports no additional complaints Physical Exam Const General: cooperative, healthy appearing, comfortable, no acute distress, well developed, alert, awake and Physically active Orientation/consciousness: patient oriented x3 Resp Effort & Inspection: normal respiratory effort and able to speak in complete sentences Neuro General: patient oriented x3 Psych Appearance: grossly normal Speech and movement: Clear speech present Affect: normal affect Attitude: cooperative Thought process: Normal thought process present Thought content: Normal thought content present Insight: Fair insight present (Psych) Judgement: Fair judgement present (Psych) Telehealth Telehealth Telehealth Platform: [facility] Location of provider rendering services: practice address Location of patient: address on file Patient Identification confirmed using: Name, : Yes Telehealth method: video Patient verbally consented to treatment: Yes Patient verbally consented to billing insurance company: Yes Patient informed of any privacy concerns related to visit: Yes Minutes spent on Phone/Video with Pt.: 15 Results Reviewed Results Reviewed: Date of Service: 11/13/23 EXAMINATION: US RETROPERITONEAL LIMITED (RENAL ONLY) FINDINGS: RIGHT KIDNEY: 12.2 x 3.8 x 5.3 cm (SAG x AP x TRV). The kidney is normal in size, contour, and echogenicity. Renal cortical thickness is normal. No calculi or focal parenchymal lesions. No hydronephrosis. Extrarenal pelvis. LEFT KIDNEY: 11.0 x 4.9 x 4.5 cm (SAG x AP x TRV). The kidney is normal in size, contour, and echogenicity. Renal cortical thickness is normal. No calculi or focal parenchymal lesions. No hydronephrosis. IMPRESSION: No hydronephrosis. No gross nephrolithiasis.. Assessment & Plan Assessment & Plan (1) Nephrolithiasis: Code(s): N20.0 - Calculus of kidney Category: Medical Plan Recent renal ultrasound results reviewed with the patient today; as noted above. Patient currently denies any bothersome urinary issues or concerns. She reports be happy with current voiding parameters. Discussed, educated, and stressed the importance of continuing to drink plenty of water daily. Continue adding 1 oz of lemon juice to water daily. Will obtain renal ultrasound in 6 months. Follow-up in 6 months with imaging to be completed prior; or sooner with any issues, concerns, and or questions. Orders: Orders US renal BI 6 Months N20.0 - Calculus of kidney Patient Instructions: The patient had an opportunity to ask questions regarding the treatment plan. All questions were answered. Physical exam, labs, and imaging were discussed and reviewed in detail. As well as risks, benefits, and discussion of treatment choices. No major barriers to understanding were identified. The patient expressed understanding and agreement with the above treatment plan. The patient was made aware they should contact our office by phone for worsening of their current condition, the appearance of new symptoms, or with any questions or concerns. Compliance is encouraged with any medications and follow up testing that is ordered. It is a privilege to be allowed the opportunity to participate in? your urological care.? Again, if you have any questions or concerns If you have any questions or concerns please do not hesitate to contact me. The office is [phone]. This note is constructed using voice recognition software. While every effort has been made to ensure accuracy watch inspector final movement errors may have been included. Yours sincerely, YANY Holliday Coding Level of Care Code Tele Est Pt Level 3 (10756) Diagnoses Nephrolithiasis N20.0 Time Spent (min) 15
== END 2023-11-22 12:23 | disposition home or self-care (01) ==
LOC: HO.HUSH 10:36
PROVIDERS: PCP Internal Medicine; Visit Provider Nurse Practitioner Family
DX: N20.0 Calculus of kidney (principal)
CPT/HCPCS: 99213

== ENCOUNTER → 2023-11-22 10:36 | Outpatient (BNVA) | payer OTHER, SELFPAY | PROVIDERS: PCP Internal Medicine; Visit Provider Nurse Practitioner Family ==

== ENCOUNTER 2023-11-30 07:03 | Outpatient (REF) | payer OTHER, SELFPAY ==
[2023-11-30 08:49] LABS: Thyroid Stimulating Hormone 0.08 uIU/mL (0.32-4.0)
== END 2023-11-30 07:04 | disposition home or self-care (01) ==
LOC: HO.LAB 07:03
PROVIDERS: PCP Internal Medicine; Visit Provider Internal Medicine Endocrinology, Diabetes & Metabolism
DX: E03.9 Hypothyroidism, unspecified (principal)
CPT/HCPCS: 36415; 84439; 84443

== ENCOUNTER 2023-11-30 10:51 | Outpatient (AMB) | payer OTHER, SELFPAY ==
[2023-11-30 10:53] VITALS: BP 102/56; PULSE 71; BMI 27.7
--- NOTE | 2023-11-30 10:53 | A.OFFVIS_ITS ---
Vital Signs 11/30/23 10:53 Height 5 ft Weight 141 lb 12.116 oz BMI 27.7 BP 102/56 L Blood Pressure Location Lt brachial Position Sitting Pulse 71 Pulse Source Pulse Oximeter Intake Visit Reasons: Hypothyroidism Intake Note: Patient present today for Hypothyroidism follow up visit. Internal Medicine Hospitalist Required: No Accompanied by: Self / Same As Patient Allergies Sulfa (Sulfonamide Antibiotics) Allergy (Severe, Verified 11/30/23 10:57) SYNCOPE/RASH morphine [MORPHINE] Adverse Reaction (Intermediate, Verified 11/30/23 10:57) NAUSEA & VOMITING, vomiting Medication List - Last Reconciled 11/30/23 by See Franco MD Synthroid (levothyroxine) 150 mcg PO DAILY NS HPI Comments Details: 53 YO F with who is seen in consultation at the request of his PCP for Hyothyroidism. Previously seen by myself First diagnosed with Hypothyroidism [] with labs revealing []. Currently using thyroid hormone. Synthroid 150 mcg alt with 112 ug Denies + fatigue, +weight gain 15 lbs , -cold intolerance, +dry skin, -hair l oss,- constipation. There is no hx of hyperlipidemia . Denies obstructive sx of goiter . Denies consuming any kelp or seaweed. Denies taking amiodarone. Biotin: No PFSH Medical History Hypothyroid Family history of coronary arteriosclerosis Hearing loss Tinnitus Bilateral nephrolithiasis Palpitations Thyroid disease Surgical History Hx of hand surgery Hx of colonoscopy Cataract extraction status of left eye Hx of tonsillectomy Hx of section History of incision and drainage Hx of carpal tunnel repair Hx of cholecystectomy Family History Father MDS (myelodysplastic syndrome) Cancer Mother Heart attack Heart failure H/O heart artery stent Social History Household Members Other:: , adult children Are you a primary career and transition teacher to a significant other at home: No Do you presently have visiting nurse or other home services: No Patient Tobacco Use Status: Never used Tobacco Current occupational status: employed 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 Thyroid gland measure 15 gms . No nodules or tenderness palpated. There is no cervical adenopathy palpated. Lungs CTA. Heart S1, S2 Reg R/R -M/R/G. Abdominal exam benign. Skin exam reveals absence of dryness or thyroid dermopathy or vitiligo. Nail exam reveals absence of thyroid acropachy or oncholysis. Neurologic exam reveals 2+ reflexes . Muscle Strength is 5/5 proximally. There are no tremors in upper extremities. Assessment & Plan Assessment & Plan (1) Hypothyroid: Code(s): E03.9 - Hypothyroidism, unspecified Category: Medical Plan: This is a 53-year-old white female with a history of hypothyroidism currently being treated [id number] mcg Synthroid . She has a suppressed TSH chronically and feels hyperthyroid symptoms Plan is to decrease Synthroid to 125 mcg q.d. and change to branded Tirosint . Patient complains of nausea in relation to taking both Synthroid and generic levothyroxine. Will then recheck TSH and free T4 in 4-6 weeks' time adjust Tirosint accordingly. Orders: Orders Free T4 (Free Thyroxine) 6 Weeks E03.9 - Hypothyroidism, unspecified Thyroid Stimulating Hormone 6 Weeks E03.9 - Hypothyroidism, unspecified Medications: New Tirosint (levothyroxine) 125 mcg PO DAILY 30 caps 5RF NS Discontinued Synthroid (levothyroxine) Discontinued Reason: Doctor's Order 150 mcg PO DAILY 30 tabs 5RF NS Coding Level of Care Code Est Pt Level 3 (10381) Diagnoses Hypothyroid E03.9
== END 2023-11-30 11:19 | disposition home or self-care (01) ==
PROVIDERS: PCP Internal Medicine; Visit Provider Internal Medicine Endocrinology, Diabetes & Metabolism
DX: E03.9 Hypothyroidism, unspecified (principal)
CPT/HCPCS: 99213

== ENCOUNTER 2024-01-22 12:50 | Outpatient (AMB) | payer OTHER, SELFPAY ==
[2024-01-22 12:53] VITALS: BP 90/62; PULSE 71; BMI 28.1
--- NOTE | 2024-01-22 12:53 | MHC.OFFVIS ---
Vital Signs 01/22/24 12:53 Height 5 ft Weight 143 lb 11.862 oz BMI 28.1 BP 90/62 Blood Pressure Location Lt brachial Position Sitting Pulse 71 Pulse Source Pulse Oximeter Intake Visit Reasons: f/u after testing pt rs CTA for 01/18/24 Roof Service Technician Required: No Allergies Sulfa (Sulfonamide Antibiotics) Allergy (Severe, Verified 01/22/24 12:55) SYNCOPE/RASH morphine [MORPHINE] Adverse Reaction (Intermediate, Verified 01/22/24 12:55) NAUSEA & VOMITING, vomiting Medication List - Last Reconciled 01/22/24 by Stacie Abarca, HEAD HOST/HOSTESS-C Tirosint (levothyroxine) 125 mcg PO DAILY NS HPI HPI f/u after testing pt rs CTA for 01/18/24: Details: Mai is a 53-year-old female with past medical history of hypothyroidism, family history of cardiovascular disease who was recently evaluated for heart palpitations and now presents for follow-up. Today she reports she has been feeling fatigued, having brittle nails and hair loss which she believes is related to the adjustment in her thyroid medication. Her TSH had been low and her medicine dose was decreased. She is planning to have lab work rechecked today. She has not had any problem with chest discomfort at rest or with activity. She will feel occasional heart palpitations that overall have lessened. She describes them as brief but can occur repeatedly throughout the day. No lightheadedness, presyncope, syncope, falls. No shortness of breath, PND, orthopnea or edema. 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 [facility] Medical History Hypothyroid Family history of coronary arteriosclerosis Hearing loss Tinnitus Bilateral nephrolithiasis Palpitations Thyroid disease Surgical History Hx of hand surgery Hx of colonoscopy Cataract extraction status of left eye Hx of tonsillectomy Hx of section History of incision and drainage Hx of carpal tunnel repair Hx of cholecystectomy Family History Father MDS (myelodysplastic syndrome) Cancer Mother Heart attack Heart failure H/O heart artery stent Social History Household Members Other:: , adult children Are you a primary child care teacher to a significant other at home: No Do you presently have visiting nurse or other home services: No Patient Tobacco Use Status: Never used Tobacco Current occupational status: employed 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 Review of Systems Const All systems reviewed & are unremarkable except as noted in HPI and below ENT Denies dizziness Card Details: occassional brief palpitations Denies chest pain, Denies chest pain at rest, Denies chest pain with activity, Denies rapid heart rate, Denies pedal edema, Denies edema, Denies leg edema, Denies lightheadedness, Denies palpitations, Denies dyspnea, Denies dyspnea on exertion and Denies orthopnea Resp Denies cough, Denies dyspnea and Denies dyspnea on exertion GI Denies hematochezia and Denies change in stool character Musc Denies abnormal gait, Denies limited range of motion, Denies muscle cramps, Denies muscle weakness, Denies numbness, Denies radiating pain into limb, Denies stiffness and Denies tingling Neuro Denies abnormal gait, Denies dizziness, Denies numbness and Denies tingling Endo Denies palpitations Physical Exam Vital Signs: Last Vital Signs Pulse 71 01/22/24 12:53 BP 90/62 01/22/24 12:53 BMI result Body Mass Index 28.1 Const General: cooperative, healthy appearing, comfortable and no acute distress Orientation/consciousness: patient oriented x3 Neck Neck: Yes normal visual inspection and Yes no JVD Resp Effort & Inspection: normal respiratory effort Auscultation: clear to auscultation bilaterally, no crackles, no rales, no rhonchi and no wheezes Cardio Jugular venous distension: no JVD Rate: regular rate Rhythm: regular rhythm Heart sounds: S1 normal heart sound present, S2 normal heart sound present, no murmurs and no rubs Neuro General: patient oriented x3 Extrem General: Yes normal to inspection, No no pedal edema and No calf tenderness Psych Appearance: grossly normal Mental Status: mental status grossly normal Speech and movement: Normal speech and movement present Assessment & Plan Assessment & Plan (1) Palpitations: Comment: occasional Code(s): R00.2 - Palpitations Category: Medical Plan: Reports of heart palpitations. ER visit for this reason 07/2023. She ruled out for ACS. She was found to have TSH 0.01 and the dose of her thyroid supplement has since been decreased. Last known TSH 0.08. Holter monitor done on 10/03/2023 for 3 days shows sinus rhythm with average heart rate 75, no significant arrhythmia. She is currently having some symptoms of fatigue, brittle nails and hair loss. She is scheduled to have a recheck of TSH today. Overall her palpitations have lessened and currently not causing her concern. She tells me she has had issues like this for decades. Instructed to notify this office if she has any concerning or prolonged heart palpitations. ED care if ever needed. Cardiology follow-up p.r.n.. (2) Family history of coronary arteriosclerosis: Code(s): Z82.49 - Family history of ischemic heart disease and other diseases of the circulatory system Category: Medical Plan: Patient reported history of CAD including fatal MIs in family members. No other concerning cardiac risk factors. On last visit she expressed much concern and requested further evaluation. Her EKG done 08/05/2023 showed sinus rhythm with no acute ST or T-wave abnormalities, rate 72. An echocardiogram done 10/03/2023 showed EF 65%, no valve abnormalities and no regional wall motion abnormalities. A CTA of the coronary arteries done on 01/18/2024 shows no evidence of atherosclerotic coronary artery disease. There is an incidental finding of a 3 mm nodule in the right upper lobe. Patient was informed of these results and given a copy of the report. Continue with weight control, good physical activity and diet. Signs and symptoms of angina reviewed. (3) Hypothyroid: Code(s): E03.9 - Hypothyroidism, unspecified Category: Medical Plan: As above Plan Time spent on chart review, documentation, interview and assessment Coding Level of Care Code Est Pt Level 3 (16421) Complex EM visit Add On G2211 Diagnoses Palpitations R00.2 Family history of coronary arteriosclerosis Z82.49 Hypothyroid E03.9 Time Spent (min) 24
== END 2024-01-22 13:21 | disposition home or self-care (01) ==
PROVIDERS: PCP Internal Medicine; Visit Provider Nurse Practitioner Family
DX: R00.2 Palpitations (principal); Z82.49 Family history of ischemic heart disease and other diseases of the circulatory system; E03.9 Hypothyroidism, unspecified
CPT/HCPCS: 99213

== ENCOUNTER 2024-01-22 12:50 | Outpatient (REF) | payer OTHER, SELFPAY ==
[2024-01-22 14:51] LABS: Free T4 (Free Thyroxine) 1.29 ng/dL (0.71-1.85); Thyroid Stimulating Hormone 0.08 uIU/mL (0.32-4.0)
== END 2024-01-22 12:51 | disposition home or self-care (01) ==
LOC: HO.LAB 12:50
PROVIDERS: Internal Medicine Endocrinology, Diabetes & Metabolism; PCP Internal Medicine; Visit Provider Nurse Practitioner Family
DX: E03.9 Hypothyroidism, unspecified (principal)
CPT/HCPCS: 36415; 84439; 84443

== ENCOUNTER 2024-01-22 13:23 | Outpatient (REF) | payer OTHER, SELFPAY | END 2024-01-22 13:24 | disposition home or self-care (01) | LOC: HO.LAB 13:23 | PROVIDERS: PCP Internal Medicine; Visit Provider Internal Medicine Endocrinology, Diabetes & Metabolism | DX: Z13.89 Encounter for screening for other disorder (principal) ==

== ENCOUNTER 2024-03-04 10:50 | Outpatient (AMB) | payer OTHER, SELFPAY ==
--- NOTE | 2024-03-04 10:53 | MHC.OFFVIS ---
Vital Signs 03/04/24 10:58 Weight 139 lb 12.369 oz BP 92/52 L Blood Pressure Location Lt brachial Position Sitting Pulse 67 Pulse Source Pulse Oximeter Intake Visit Reasons: f/u hypothyroidism Intake Note: Patient present today for Hypothyroidism follow up visit. 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 Previously seen by myself First diagnosed with Hypothyroidism [] with labs revealing []. Currently using thyroid hormone. Tirosint 112 ug . Dose decreased about 6 weeks ago. There is no hx of hyperlipidemia . Denies obstructive sx of goiter . Denies consuming any kelp or seaweed. Denies taking amiodarone. Biotin: No No nausea. Losing wt PFSH Medical History Hypothyroid Family history of coronary arteriosclerosis Hearing loss Tinnitus Bilateral nephrolithiasis Palpitations Thyroid disease Surgical History Hx of hand surgery Hx of colonoscopy Cataract extraction status of left eye Hx of tonsillectomy Hx of section History of incision and drainage Hx of carpal tunnel repair Hx of cholecystectomy Family History Father MDS (myelodysplastic syndrome) Cancer Mother Heart attack Heart failure H/O heart artery stent Social History Household Members Other:: , adult children Are you a primary healthcare administrative assistant to a significant other at home: No Do you presently have visiting nurse or other home services: No Patient Tobacco Use Status: Never used Tobacco Current occupational status: employed 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 There are no thyroid nodules palpated Assessment & Plan Assessment & Plan (1) Hypothyroid: Code(s): E03.9 - Hypothyroidism, unspecified Category: Medical Plan: This is a 53-year-old white female with a history of hypothyroidism currently being treated with 112 mcg Tirosint Plan is to recheck TSH and free T4 adjust Tirosint accordingly. Coding Level of Care Code Est Pt Level 3 (83821) Diagnoses Hypothyroid E03.9
[2024-03-04 10:58] VITALS: BP 92/52; PULSE 67
== END 2024-03-04 11:25 | disposition home or self-care (01) ==
PROVIDERS: PCP Internal Medicine; Visit Provider Internal Medicine Endocrinology, Diabetes & Metabolism
DX: E03.9 Hypothyroidism, unspecified (principal)
CPT/HCPCS: 99213

== ENCOUNTER 2024-03-04 11:28 | Outpatient (REF) | payer OTHER, SELFPAY ==
[2024-03-04 13:59] LABS: Free T4 (Free Thyroxine) 1.34 ng/dL (0.71-1.85); Thyroid Stimulating Hormone 0.04 uIU/mL (0.32-4.0)
== END 2024-03-04 11:29 | disposition home or self-care (01) ==
LOC: HO.10HDL 11:28
PROVIDERS: Visit Provider Internal Medicine Endocrinology, Diabetes & Metabolism
DX: E03.9 Hypothyroidism, unspecified (principal)
CPT/HCPCS: 36415; 84439; 84443

== ENCOUNTER 2024-03-05 08:48 | Outpatient (REF) | payer OTHER, SELFPAY ==
--- NOTE | ~2024-03-05 | XR_ITS ---
CLINICAL HISTORY: M25.519 - Pain in unspecified shoulder 3 view right shoulder Comparison: MR/SR - MR SHOULDER RT WO CON - 03/08/22 19:52 EST Findings: No fractures or dislocations. Periarticular osteophyte formation at the acromioclavicular and glenohumeral joints, indicating osteoarthritis. No erosions. No radiopaque foreign body. IMPRESSION: 1. No acute findings 2. Osteoarthritis. This document has been electronically signed by: Corine Vera MD on 03/05/2024 14:40:46
== END 2024-03-05 08:49 | disposition home or self-care (01) ==
LOC: HO.HOSX 08:48
PROVIDERS: Visit Provider Physician Assistant
DX: M25.511 Pain in right shoulder (principal)
CPT/HCPCS: 73030

== ENCOUNTER 2024-03-05 09:42 | Outpatient (AMB) | payer OTHER, SELFPAY ==
--- NOTE | 2024-03-05 09:49 | A.OFFVIS_ITS ---
Vital Signs 03/05/24 09:53 Height 5 ft Weight 139 lb BMI 27.1 Intake Visit Reasons: New Prob - Right shoulder pain Intake Note: Mai is a 53 year old right hand dominant female who presents today with for a evaluation of her right shoulder pain. Surgery? Hx of injection with [facility] about 2 years ago. Patient reports ongoing pain for many years. She states that her pain starts from her starts from her shoulder and moves down her whole arm. Patient notices that her pain is worse when she is lifting dogs and grooming. 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 Allergies Sulfa (Sulfonamide Antibiotics) Allergy (Severe, Verified 03/05/24 09:52) SYNCOPE/RASH morphine [MORPHINE] Adverse Reaction (Intermediate, Verified 03/05/24 09:52) NAUSEA & VOMITING, vomiting HPI HPI New Prob - Right shoulder pain: Details: Ms. Garza 53-year-old right-hand dominant female who presents to the office today for evaluation of right shoulder pain. 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 She reports that roughly 2 years ago she had a cortisone injection in the right shoulder while in the office at [facility]. She also had a CT scan which she reports she had rotator cuff tendinitis, osteoarthritis, and a small rotator cuff tear. She denies any intra-articular joint injection with imaging guidance. She denies any injury or trauma. [facility] Medical History Hypothyroid Family history of coronary arteriosclerosis Hearing loss Tinnitus Bilateral nephrolithiasis Palpitations Thyroid disease Surgical History Hx of hand surgery Hx of colonoscopy Cataract extraction status of left eye Hx of tonsillectomy Hx of section History of incision and drainage Hx of carpal tunnel repair Hx of cholecystectomy Family History Father MDS (myelodysplastic syndrome) Cancer Mother Heart attack Heart failure H/O heart artery stent Social History Household Members Other:: , adult children Are you a primary resident care manager to a significant other at home: No Do you presently have visiting nurse or other home services: No Patient Tobacco Use Status: Never used Tobacco Current occupational status: employed 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 Able to reach back pocket. Pain with cross-body reach. NVI. Assessment & Plan Assessment & Plan (1) Arthritis of right glenohumeral joint: Code(s): M19.011 - Primary osteoarthritis, right shoulder Category: Medical Plan Ms. Garza 53-year-old right-hand dominant female who presents to the office today for evaluation of right shoulder pain. 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 She reports that roughly 2 years ago she had a cortisone injection in the right shoulder while in the office at [facility]. She also had a CT scan which she reports she had rotator cuff tendinitis, osteoarthritis, and a small rotator cuff tear. She denies any intra-articular joint injection with imaging guidance. She denies any additional injury or trauma. While in the office today, I discussed the role of intra-articular cortisone injection. Patient has agreed to move forward with this. The patient will be scheduled at the hospital for this procedure. Her follow-up with Orthopedics will be p.r.n., sooner if needed. X-rays that were obtained in the office today of the right shoulder reviewed by me, and negative for any acute fracture dislocation. She does have AC joint and glenohumeral joint osteoarthritis. Orders: Orders XR shoulder RT min 2V Today M25.519 - Pain in unspecified shoulder Coding Level of Care Code Est Pt Level 3 (32163) Diagnoses Arthritis of right glenohumeral joint M19.011
[2024-03-05 09:53] VITALS: BMI 27.1
== END 2024-03-05 10:01 | disposition home or self-care (01) ==
PROVIDERS: PCP Internal Medicine; Visit Provider Physician Assistant
DX: M19.011 Primary osteoarthritis, right shoulder (principal)
CPT/HCPCS: 99213

== ENCOUNTER → 2024-03-05 09:43 | Outpatient (BNV) | payer OTHER, SELFPAY | PROVIDERS: Visit Provider Radiology Diagnostic Radiology | DX: M19.011 Primary osteoarthritis, right shoulder (principal) | CPT/HCPCS: 73030 ==

== ENCOUNTER 2024-03-13 12:48 | Outpatient (REF) | payer OTHER, SELFPAY ==
--- NOTE | ~2024-03-13 | FL_ITS ---
FLUOROSCOPIC RIGHT SHOULDER INTRA-ARTICULAR STEROID INJECTION Indications: Right shoulder pain. Procedure: Risks and benefits and possible complications were discussed with the patient and the consent form was signed. The patient was placed supine on the fluoroscopy table. The right shoulder was prepped and draped in normal sterile fashion. 1% buffered lidocaine was used for anesthesia. A 22-gauge spinal needle was used to access the shoulder joint. Intra-articular position of the needle within the shoulder joint was verified using 3 cc of Omnipaque 300. A total of 80 mg Depo-Medrol and 5 cc 2% lidocaine was then injected into the shoulder joint. The needle was then removed and a Band-Aid was applied to the injection site. The patient tolerated the procedure well. There were no immediate complications. FL/FL Guided Asp Inj Major Jt RT Impression: Successful fluoroscopic guided intra-articular right shoulder injection The procedure was performed by michelle Herron PA-C, and directly supervised by Dr. Terry. Electronically signed by: Quinton Terry MD 03/13/2024 03:27 PM [facility] [place]
[2024-03-13] MEDS: iohexoL 300 MG/ML 100 ML INFUS..BTL IV (13:36)
[2024-03-13] MEDS: Lidocaine HCl 2 % 20 ML VIAL 8 ML INFILTRATI (13:39)
[2024-03-13] MEDS: methylPREDNISolone acetate 80 MG VIAL INTRAARTIC (13:40)
== END 2024-03-13 12:49 | disposition home or self-care (01) ==
LOC: HO.XRAY 12:48
PROVIDERS: PCP Internal Medicine; Visit Provider Physician Assistant
DX: M19.011 Primary osteoarthritis, right shoulder (principal)
CPT/HCPCS: 20610; 77002; J1010; J2003; Q9967

== ENCOUNTER → 2024-03-13 12:50 | Outpatient (BNV) | payer OTHER, SELFPAY | PROVIDERS: PCP Internal Medicine; Visit Provider Physician Assistant Surgical | DX: M25.511 Pain in right shoulder (principal) | CPT/HCPCS: 20610; 77002 ==

== ENCOUNTER 2024-05-29 14:19 | Outpatient (REF) | payer OTHER, SELFPAY ==
--- NOTE | ~2024-05-29 | US_ITS ---
CLINICAL HISTORY: N20.0 - Calculus of kidney US renal with Color Doppler Comparison: None Findings: Right kidney normal size and echotexture, 12.2 cm length. No hydronephrosis calculus or mass. Normal color flow. Left kidney normal size and echotexture, 10.7 cm length. No hydronephrosis calculus or mass. Normal color flow. Impression: 1. Normal renal ultrasound This document has been electronically signed by: Nash Acuna MD on 05/31/2024 07:48:45
[2024-05-29 16:28] LABS: Free T4 (Free Thyroxine) 1.12 ng/dL (0.71-1.85)
== END 2024-05-29 14:20 | disposition home or self-care (01) ==
LOC: HO.US 14:19
PROVIDERS: Absent Provider Internal Medicine Endocrinology, Diabetes & Metabolism; Visit Provider Nurse Practitioner Family
DX: N20.0 Calculus of kidney (principal); E03.9 Hypothyroidism, unspecified
CPT/HCPCS: 36415; 76775; 84439; 84443

== ENCOUNTER → 2024-05-29 14:23 | Outpatient (BNV) | payer OTHER, SELFPAY | PROVIDERS: Absent Provider Internal Medicine Endocrinology, Diabetes & Metabolism; Visit Provider Radiology Diagnostic Radiology | DX: N20.0 Calculus of kidney (principal) | CPT/HCPCS: 76775 ==

== ENCOUNTER 2024-06-06 10:53 | Outpatient (AMB) | payer OTHER, SELFPAY ==
--- NOTE | 2024-06-06 11:05 | A.OFFVIS_ITS ---
Intake Visit Reasons: 6M imaging(set) Intake Note: Patient presents today for follow up on: kidney stone and ultrasound results Imaging Completed: 05/29/24 Urology Medications: none Blood Thinner: none Medical Care Administrator Required: No Accompanied by: Self / Same As Patient Allergies Sulfa (Sulfonamide Antibiotics) Allergy (Severe, Verified 06/06/24 13:11) SYNCOPE/RASH morphine [MORPHINE] Adverse Reaction (Intermediate, Verified 06/06/24 13:11) NAUSEA & VOMITING, vomiting Medication List - Last Reconciled 06/06/24 by YANY Holliday Tirosint (levothyroxine) 88 mcg PO DAILY NS HPI Comments Details: Mai is a pleasant 53-year-old female patient of Dr. Bennett. She has a past medical history of right-sided hearing loss, tinnitus, nephrolithiasis, and hypothyroidism. She presents to the office today for follow-up of her nephrolithiasis. In discussion with the patient today she denies having had any bothersome urinary issues or concerns since her last office visit here. Recent renal imaging results reviewed with the patient today 05/31 bilateral kidneys are normal in size and echotexture. No nephrolithiasis, hydronephrosis, or masses. Normal renal ultrasound. She continues to follow-up with endocrinology regarding her thyroid levels. In office urinalysis results reviewed with the patient today. She currently denies any bothersome urinary issues or concerns. She denies urinary urgency, urinary frequency, incontinence, nocturia, hematuria, dysuria, foul smelling urine, changes to urinary stream, flank pain, fever, and or chills. She continues with adequate hydration daily. She otherwise offers no other issues or concerns at this time. [facility] Medical History Hypothyroid Family history of coronary arteriosclerosis Hearing loss Tinnitus Bilateral nephrolithiasis Palpitations Thyroid disease Surgical History Hx of hand surgery Hx of colonoscopy Cataract extraction status of left eye Hx of tonsillectomy Hx of section History of incision and drainage Hx of carpal tunnel repair Hx of cholecystectomy Family History Father MDS (myelodysplastic syndrome) Cancer Mother Heart attack Heart failure H/O heart artery stent Social History Household Members Other:: , adult children Are you a primary patient care technician instructor to a significant other at home: No Do you presently have visiting nurse or other home services: No Patient Tobacco Use Status: Never used Tobacco Current occupational status: employed 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 Review of Systems Const All systems reviewed & are unremarkable except as noted in HPI and below Reports no additional complaints Eyes Reports no additional complaints ENT Reports as per HPI Card Reports no additional complaints Resp Reports no additional complaints GI Reports no additional complaints Reports as per HPI Musc Reports no additional complaints Neuro Reports no additional complaints Psych Reports no additional complaints Endo Reports as per HPI Maverick/Lymph Reports no additional complaints Aller/Immun Reports no additional complaints Physical Exam Const General: cooperative, healthy appearing, comfortable, no acute distress, well developed, alert and awake Orientation/consciousness: patient oriented x3 Limitations: no limitations HEENT Head: Yes normal to inspection, Yes normocephalic and Yes atraumatic Ears: hearing grossly normal bilaterally Eyes General: appearance normal, both eyes and all related structures Neck Neck: Yes normal visual inspection and Yes trachea midline Chest Chest palpation & inspection: normal inspection of the chest Resp Effort & Inspection: normal respiratory effort and able to speak in complete sentences Cardio Rate: regular rate GI Inspection: Yes normal to inspection General: Yes no CVA tenderness Back/Spine/Pelvis Back: no CVA tenderness Skin General skin exam: no rashes or lesions noted Neuro General: patient oriented x3 Extrem General: Yes normal to inspection Psych Appearance: grossly normal and well kempt Mental Status: mental status grossly normal Speech and movement: Normal speech and movement present and Clear speech present Affect: normal affect Attitude: cooperative Thought process: Normal thought process present Thought content: Normal thought content present Insight: Fair insight present (Psych) Judgement: Fair judgement present (Psych) Results AMB Urinalysis, Automated UA Leukoctes 0 Christian/uL Last Edit by Hawk Nelson on 06/06/24 11:13 UA Nitrite Last Edit by [employer] on 06/06/24 11:13 UA Urobilinogen 0.2 mg/dL Last Edit by [employer] Nelson on 06/06/24 11:13 UA Protein 0 mg/dL Last Edit by [employer] on 06/06/24 11:13 UA pH 6.0 Last Edit by [employer] on 06/06/24 11:13 UA Blood 0 Jovon/uL Last Edit by [employer] on 06/06/24 11:13 UA Specific [place] 1.010 Last Edit by [employer] on 06/06/24 11:13 UA Ketone Last Edit by [employer] on 06/06/24 11:13 UA Bilirubin 0 mg/dL Last Edit by [employer] on 06/06/24 11:13 UA Glucose 0 mg/dL Last Edit by [employer] on 06/06/24 11:13 Results Reviewed Results Reviewed: Laboratory Last Values Urine pH (Auto) 6.0 06/06/24 11:10 Specific [place] (Auto) 1.010 06/06/24 11:10 Urine Protein (Auto) 0 mg/dL 06/06/24 11:10 Glucose (UA)(Auto) 0 mg/dL 06/06/24 11:10 Urine Blood (Auto) 0 Jovon/uL 06/06/24 11:10 Urine Bilirubin (Auto) 0 mg/dL 06/06/24 11:10 Urine Urobilinogen (Auto) 0.2 mg/dL 06/06/24 11:10 Leukocyte Esterase (Auto) 0 Christian/uL 06/06/24 11:10 Date of Service: 05/29/24 Procedure(s): US renal BI Findings: Right kidney normal size and echotexture, 12.2 cm length. No hydronephrosis calculus or mass. Normal color flow. Left kidney normal size and echotexture, 10.7 cm length. No hydronephrosis calculus or mass. Normal color flow. Impression: 1. Normal renal ultrasound Assessment & Plan Assessment & Plan (1) Nephrolithiasis: Code(s): N20.0 - Calculus of kidney Category: Medical Plan Recent renal imaging results with the patient today; as noted above. In office urinalysis results reviewed with the patient today; as noted above. She currently denies any bothersome urinary issues or concerns. She reports be happy with current voiding parameters. Discussed, educated, and stressed the importance of adequate hydration relation to nephrolithiasis as well as overall health and well-being. Will continue with surveillance monitoring Will obtain renal ultrasound 1 year Follow-up in 1 year with imaging to be completed prior; or sooner with any issues, concerns, and or questions. Orders: Orders AMB Urinalysis Automated Today Z13.9 - Encounter for screening, unspecified US renal BI 1 Year N20.0 - Calculus of kidney Patient Instructions: The patient had an opportunity to ask questions regarding the treatment plan. All questions were answered. Physical exam, labs, and imaging were discussed and reviewed in detail. As well as risks, benefits, and discussion of treatment choices. No major barriers to understanding were identified. The patient expressed understanding and agreement with the above treatment plan. The patient was made aware they should contact our office by phone for worsening of their current condition, the appearance of new symptoms, or with any questi ons or concerns. Compliance is encouraged with any medications and follow up testing that is ordered. It is a privilege to be allowed the opportunity to participate in? your urological care.? Again, if you have any questions or concerns If you have any questions or concerns please do not hesitate to contact me. The office is [phone]. This note is constructed using voice recognition software. While every effort has been made to ensure accuracy quality improvement analyst errors may have been included. Yours sincerely, YANY Holliday Coding Level of Care Code Est Pt Level 3 (08724) Diagnoses Nephrolithiasis N20.0
== END 2024-06-06 11:50 | disposition home or self-care (01) ==
LOC: HO.HUSH 10:53
PROVIDERS: Visit Provider Nurse Practitioner Family
DX: Z13.9 Encounter for screening, unspecified (principal); N20.0 Calculus of kidney
CPT/HCPCS: 99213

== ENCOUNTER → 2024-06-06 10:53 | Outpatient (BNVA) | payer OTHER, SELFPAY | PROVIDERS: Visit Provider Nurse Practitioner Family | DX: N20.0 Calculus of kidney (principal) | CPT/HCPCS: 81003 ==

== ENCOUNTER 2024-07-02 11:22 | Outpatient (AMB) | payer OTHER, SELFPAY ==
--- NOTE | 2024-07-02 11:37 | MHC.OFFVIS ---
Vital Signs 07/02/24 11:40 Height 5 ft Weight 143 lb 11.862 oz BMI 28.1 BP 92/62 Blood Pressure Location Rt brachial Position Sitting Pulse 86 Pulse Source Pulse Oximeter Pulse Oximetry (%) 97 Oxygen Delivery Method Room Air Intake Visit Reasons: f/u hypothyroidism Intake Note: Patient present today for Hypothyroidism follow up visit. Funeral Service Practitioner/Embalmer Required: No Accompanied by: Self / Same As Patient Allergies Sulfa (Sulfonamide Antibiotics) Allergy (Severe, Verified 07/02/24 11:41) SYNCOPE/RASH morphine [MORPHINE] Adverse Reaction (Intermediate, Verified 07/02/24 11:41) NAUSEA & VOMITING, vomiting Medication List - Last Reconciled 07/02/24 by See Franco MD Tirosint (levothyroxine) 88 mcg PO DAILY NS HPI Comments Details: 53 YO F with who is seen in consultation at the request of his PCP for Hyothyroidism. Previously seen by myself First diagnosed with Hypothyroidism [] with labs revealing []. Currently using thyroid hormone. Tirosint 88 ug . Dose decreased about 4 weeks ago. There is no hx of hyperlipidemia . Denies obstructive sx of goiter . Denies consuming any kelp or seaweed. Denies taking amiodarone. Biotin: No No nausea. Nolonger Losing wt The patient is a 53-year-old female presenting with issues related to thyroid function regulation. She has a history of childhood-onset hypothyroidism managed with levothyroxine, the dose of which has varied over the years. Notably, since reducing her dosage to 88 mcg four weeks ago, she reports increased fatigue, mood lability, heart palpitations, and unexpected weight gain, with no alteration in her dietary habits. Historically, her TSH levels have been erratic, with periods of extreme elevation and suppression. She has not undergone testing for autoimmune thyroid conditions, such as Michelle?s Thyroiditis, despite prolonged thyroid issues since age 9. The patient maintains a low-carbohydrate, high-protein diet for weight management. She has a familial predisposition to thyroid issues around menopause but no direct family history of Michelle's disease. She experiences persistent low energy levels, and exacerbated fatigue since the most recent dosage change, raising concerns about potential adrenal insufficiency. [facility], [facility] Medical History Hypothyroid Family history of coronary arteriosclerosis Hearing loss Tinnitus Bilateral nephrolithiasis Palpitations Thyroid disease Surgical History Hx of hand surgery Hx of colonoscopy Cataract extraction status of left eye Hx of tonsillectomy Hx of section History of incision and drainage Hx of carpal tunnel repair Hx of cholecystectomy Family History Father MDS (myelodysplastic syndrome) Cancer Mother Heart attack Heart failure H/O heart artery stent Social History Household Members Other:: , adult children Are you a primary care manager cna to a significant other at home: No Do you presently have visiting nurse or other home services: No Patient Tobacco Use Status: Never used Tobacco Current occupational status: employed 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 There are no thyroid nodules palpated Assessment & Plan Assessment & Plan (1) Hypothyroid: Code(s): E03.9 - Hypothyroidism, unspecified Category: Medical Plan: This is a 53-year-old white female with a history of hypothyroidism currently being treated with 88 mcg Tirosint Plan is to recheck TSH and free T4 along with TPOAb adjust Tirosint accordingly. Also check a.m. cortisol level as well as LH and FSH to assess for potential adrenal insufficency as well as integrity of the pituitary axis 1. Hypothyroidism The goal is to reassess thyroid hormone levels to determine the suitability of the current Levothyroxine dose. If tests suggest dose inadequacy, adjustments including alternating doses may be needed, given the patient?s historical dose-response relationship to levothyroxine/Tirosint . 2. Potential Adrenal Insufficiency The patient?s symptoms necessitate further evaluation of adrenal function. A morning cortisol level check is arranged, with a possible ACTH stimulation test pending initial results, to fully understand adrenal health and guide management. I discussed with the patient the potential reasons for her symptoms, specifically the effects of her reduced Levothyroxine dosage and the possibility of an underlying adrenal insufficiency. I explained the importance of collecting a morning cortisol sample and that, depending on results, we may need to perform a stimulation test for definitive assessment. We discussed the potential conditions of Michelle?s Thyroiditis and Yates's Disease. I emphasized the importance of this blood testing for accurate diagnosis and management. I assured her that should adrenal insufficiency be confirmed, treatment options would be available and explained the function and importance of adequate adrenal function. Additionally, I scheduled a follow-up in approximately four weeks to reassess her condition based on lab outcomes. - Complete blood work as discussed, including TSH, free T4, morning cortisol, and TPO Ab - Attend the lab early in the morning for accurate cortisol measurement. - Monitor symptoms such as fatigue, weight changes, and heart palpitations, and note any significant changes. - - Schedule follow-up in four weeks or sooner if symptoms worsen. - Contact the office immediately if any new concerning symptoms arise or current symptoms significantly worsen. The patient had an opportunity to ask questions regarding treatment plan. The patient expressed understanding and agreement with the above treatment plan. Patient was informed and verbally consented to the use of an ambient scribe for clinic note documentation during this visit. Orders: Orders Lutenizing Hormone Today E03.9 - Hypothyroidism, unspecified Thyroid Peroxidase Antibodies Today E03.9 - Hypothyroidism, unspecified Cortisol Random Today E03.9 - Hypothyroidism, unspecified Follicle Stimulating Hormone Today E03.9 - Hypothyroidism, unspecified Coding Level of Care Code Est Pt Level 3 (31051) Diagnoses Hypothyroid E03.9
[2024-07-02 11:40] VITALS: BP 92/62; PULSE 86; O2SAT 97; BMI 28.1
== END 2024-07-02 12:17 | disposition home or self-care (01) ==
LOC: HO.ENCR 11:23
PROVIDERS: PCP Internal Medicine; Visit Provider Internal Medicine Endocrinology, Diabetes & Metabolism
DX: E03.9 Hypothyroidism, unspecified (principal)
CPT/HCPCS: 99213

== ENCOUNTER 2024-07-03 07:54 | Outpatient (REF) | payer OTHER, SELFPAY ==
[2024-07-03 09:25] LABS: Free T4 (Free Thyroxine) 1.11 ng/dL (0.71-1.85); Thyroid Stimulating Hormone 1.18 uIU/mL (0.32-4.0)
[2024-07-04 03:58] LABS: Follicle Stimulating Hormone 113.7 mIU/mL; Lutenizing Hormone 33.5 mIU/mL
[2024-07-04 19:08] LABS: Thyroid Peroxidase Antibodies 5 IU/mL (<9)
== END 2024-07-03 07:55 | disposition home or self-care (01) ==
LOC: HO.LAB 07:54
PROVIDERS: PCP Internal Medicine; Visit Provider Internal Medicine Endocrinology, Diabetes & Metabolism
DX: E03.9 Hypothyroidism, unspecified (principal)
CPT/HCPCS: 36415; 82533; 83001; 83002; 84439; 84443; 86376

== ENCOUNTER 2024-07-30 14:56 | Outpatient (AMB) | payer OTHER, SELFPAY ==
--- NOTE | 2024-07-30 15:02 | MHC.OFFVIS ---
Vital Signs 07/30/24 15:04 Height 5 ft Weight 143 lb 1.28 oz BMI 27.9 BP 104/68 Blood Pressure Location Rt brachial Position Sitting Pulse 86 Pulse Source Pulse Oximeter Pulse Oximetry (%) 98 Oxygen Delivery Method Room Air Intake Visit Reasons: f/u hypothyroidism Intake Note: Patient present today for Hypothyroidism follow up visit. Patient c/o wanting to have Tirosint increased to 112 mcg. States she has been tired more than unusual and does not have the energy to do daily activates. It Application Development Manager Required: No Accompanied by: Self / Same As Patient Allergies Sulfa (Sulfonamide Antibiotics) Allergy (Severe, Verified 07/30/24 15:05) SYNCOPE/RASH morphine (MORPHINE) Adverse Reaction (Intermediate, Verified 07/30/24 15:05) NAUSEA & VOMITING, vomiting HPI Comments Details: 53 YO F with who is seen in consultation at the request of his PCP for Hyothyroidism. Previously seen by myself First diagnosed with Hypothyroidism [] with labs revealing []. Currently using thyroid hormone. Tirosint 88 ug . Dose decreased about 4 weeks ago. There is no hx of hyperlipidemia . Denies obstructive sx of goiter . Denies consuming any kelp or seaweed. Denies taking amiodarone. Biotin: No No nausea. Nolonger Losing wt . She was experiencing persistent low energy levels, and exacerbated fatigue since the most recent dosage change, raising concerns about potential adrenal insufficiency. However, a.m. cortisol and TSH and free T4 were deemed to be normal on current dose of Tirosint The patient is a 53-year-old female presenting with fatigue and heart palpitations. She reports feeling tired and exhausted, experiencing brain fog, and having difficulty staying awake despite adequate sleep. The fatigue began after her thyroid medication dosage was adjusted from 112 mcg to 88 mcg, with worsening symptoms at the lower dose. The patient also reports experiencing heart palpitations, which began shortly after starting the 88 mcg thyroid medication dose. She has undergone extensive cardiac evaluations, including a CAT scan, ultrasound, and stress tests, all of which were normal. Despite normal cardiac findings, the palpitations persist, and she has a family history of significant cardiac events. The patient is in menopause, confirmed by normal cortisol levels and absence of significant hot flashes. She maintains a diet primarily consisting of protein bars and reports a recent weight gain despite no changes in dietary habits. Her weight has increased from 130 to 143 pounds, which she finds frustrating given her consistent eating habits. - Reports difficulty engaging in physical activity due to fatigue. - Previously active, walking three miles in under an hour. PFSH Medical History Hypothyroid Family history of coronary arteriosclerosis Hearing loss Tinnitus Bilateral nephrolithiasis Palpitations Thyroid disease Surgical History Hx of hand surgery Hx of colonoscopy Cataract extraction status of left eye Hx of tonsillectomy Hx of section History of incision and drainage Hx of carpal tunnel repair Hx of cholecystectomy Family History Father MDS (myelodysplastic syndrome) Cancer Mother Heart attack Heart failure H/O heart artery stent Social History Household Members Other:: , adult children Are you a primary overnight caregiver to a significant other at home: No Do you presently have visiting nurse or other home services: No Patient Tobacco Use Status: Never used Tobacco Current occupational status: employed 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 Appears to be clinically and biochemically euthyroid . Adrenal insufficiency was ruled out by normal a.m. cortisol. No clear reason for patient's symptoms from endocrine perspective 1. Fatigue The patient's fatigue may not be linked to her thyroid medication dosage. Further evaluation of nutritional deficiencies or metabolic issues is recommended, including a comprehensive metabolic panel and vitamin levels. 2. Heart palpitations Persistent palpitations require further investigation. The patient should follow up with her choke reamer for potential monitoring and to rule out any undetected arrhythmias. During the consultation, we discussed the patient's ongoing fatigue and heart palpitations, which may not be related to her thyroid medication dosage. I recommended further evaluation of nutritional deficiencies and metabolic issues, including a comprehensive metabolic panel and vitamin levels. I recommended she follow-up with PCP for this and I sent a note to the physician covering her PCPWe also discussed the persistence of heart palpitations despite normal cardiac evaluations, and I advised the patient to follow up with her choke reamer for potential monitoring. The patient is confirmed to be in menopause, with minimal symptoms, and no specific intervention is required at this time. We also addressed her recent weight gain and suggested a referral to a global account director to evaluate her dietary intake and potential nutritional imbalances. - Follow up with your choke reamer to discuss ongoing heart palpitations. - Schedule an appointment with your primary care provider for further evaluation of fatigue and potential nutritional deficiencies. - Consider seeing a global account director to review your diet and address recent weight gain. - The patient had an opportunity to ask questions regarding treatment plan. Patient was informed and verbally consented to the use of an ambient scribe for clinic note documentation during this visit. The patient had an opportunity to ask questions regarding treatment plan. The patient expressed understanding and agreement with the above treatment plan. Patient was informed and verbally consented to the use of an ambient scribe for clinic note documentation during this visit. Orders: Referrals Nutrition/Dietitian Referral E03.9 - Hypothyroidism, unspecified Coding Level of Care Code Est Pt Level 3 (54651) Diagnoses Hypothyroid E03.9
[2024-07-30 15:04] VITALS: BP 104/68; PULSE 86; O2SAT 98; BMI 27.9
== END 2024-07-30 15:46 | disposition home or self-care (01) ==
LOC: HO.ENCR 14:57
PROVIDERS: PCP Internal Medicine; Visit Provider Internal Medicine Endocrinology, Diabetes & Metabolism
DX: E03.9 Hypothyroidism, unspecified (principal)
CPT/HCPCS: 99213

== ENCOUNTER 2024-08-05 14:51 | Outpatient (AMB) | payer OTHER, SELFPAY ==
[2024-08-05 14:18] VITALS: BP 114/70; PULSE 71; TEMP 36.4; O2SAT 99; BMI 27.9
--- NOTE | 2024-08-05 14:18 | A.OFFPC_ITS ---
Vital Signs 08/05/24 14:18 Height 5 ft Weight 143 lb BMI 27.9 BP 114/70 Blood Pressure Location Lt brachial Position Sitting Pulse 71 Pulse Source Pulse Oximeter Temp 97.5 F Temp Source Axillary Pulse Oximetry (%) 99 Oxygen Delivery Method Room Air Intake Visit Reasons: thyroid - see comments Recruiting And Selection Consultant Required: No Accompanied by: Self / Same As Patient Allergies Sulfa (Sulfonamide Antibiotics) Allergy (Severe, Verified 08/05/24 14:19) SYNCOPE/RASH morphine (MORPHINE) Adverse Reaction (Intermediate, Verified 08/05/24 14:19) NAUSEA & VOMITING, vomiting Tobacco use date assessed: 08/05/24 Dental Screening Dental Screen Date: 08/05/24 Did you have a dental visit in the last 12 months?: Yes Did you have a dental problem in the last 6 months where you did not have access to dental care?: No PFSH Medical History Hypothyroid Family history of coronary arteriosclerosis Hearing loss Tinnitus Bilateral nephrolithiasis Palpitations Thyroid disease Surgical History Hx of hand surgery Hx of colonoscopy Cataract extraction status of left eye Hx of tonsillectomy Hx of section History of incision and drainage Hx of carpal tunnel repair Hx of cholecystectomy Family History (Updated 08/05/24 @ 15:04 by Shaylee Beasley MA) Father MDS (myelodysplastic syndrome) Cancer Mother Heart attack Heart failure H/O heart artery stent Social History Household Members Other:: , adult children Housing: House Are you a primary health care technician to a significant other at home: No Do you presently have visiting nurse or other home services: No Patient Tobacco Use Status: Never used Tobacco e-Cigarette/Vaping Use: Never Used Current occupational status: employed 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 1. Little interest or pleasure in doing things: not at all 2. Feeling down, depressed, or hopeless: not at all 3. Trouble falling or staying asleep, or sleeping too much: not at all 4. Feeling tired or having little energy: not at all 5. Poor appetite or overeating: not at all 6. Feeling bad about yourself - or that you are a failure or have let yourself or your family down: not at all 7. Trouble concentrating on things, such as reading the newspaper or watching television: not at all 8. Moving or speaking so slowly that other people could have noticed. Or the opposite - being so fidgety or restless that you have been moving around a lot more than usual: not at all 9. Thoughts that you would be better off or of hurting yourself in some way: not at all Total score: 0 Source: Developed by Drs. See Epps, Lo Chawla, Alxeis Mckeon and colleagues, with an educational jaymie from [employer]. Thrive Questionnaire Date Thrive assessed: 08/05/24 I am a: Patient Within the past 12 months, did the food you bought not last and you didn't have the money to get more?: Never true Within the past 12 months, did you worry whether your food would run out before you got money to buy more?: Never true Do you have trouble paying for medicines?: No Do you have trouble getting transportation to medical appointments?: No Do you have trouble paying your heating and electricity bill?: No Do you have trouble taking care of your child, family member or friend?: No Do you have trouble with day-to-day activities such as bathing, preparing meals, shopping, managing finances, etc.?: No Are you currently unemployed and looking for a job?: No Are you interested in more education?: No THRIVE Score: 0 AUDIT C Alcohol Use Questionnaire (AUDIT-C) 1. How often do you have a drink containing alcohol?: Never 3. How often do you have six or more drinks on one occasion?: Never Total Score: 0 MAMTA-7 AMB Questionnaire MAMTA-7 Date MAMTA - 7 assessed: 08/05/24 Feeling nervous, anxious, or on edge: 0 = Not at all Not being able to stop or control worryin = Not at all Worrying too much about different things: 0 = Not at all Trouble relaxin = Not at all Being so restless that it is hard to sit still: 0 = Not at all Becoming easily annoyed or irritable: 0 = Not at all Feeling afraid as if something awful might happen: 0 = Not at all Total MAMTA-7 score (0-4 normal; 5-9 mild; 10-14 moderate; 15-21 severe): 0 Source: Developed by Drs. See Epps, Lo Chawla, Alexis Mckeon and colleagues, with an educational jaymie from [employer]. Physical exam (Primary Care) Vital Signs: Last Vital Signs Temp 97.5 F 08/05/24 14:18 Pulse 71 08/05/24 14:18 BP 114/70 08/05/24 14:18 Pulse Ox 99 08/05/24 14:18 Oxygen Delivery Method Room Air 08/05/24 14:18 BMI result Body Mass Index 27.9 Tobacco/Smoking Status: Tobacco use Status Tobacco use date assessed 08/05/24 08/05/24 14:20 Patient Tobacco Use Status Never used Tobacco 08/05/24 14:20 e-Cigarette/Vaping Use Never Used 08/05/24 15:04 PHQ-9: PHQ-9 Score PHQ-9: Total score 0 08/05/24 15:04 Thrive Assessment: Date of Thrive Assessment Date Thrive assessed 08/05/24 08/05/24 14:20 Coding Level of Care Code New Pt Level 4 (61774) Complex EM visit Add On G2211 Diagnoses Fatigue R53.83 CARLOS (obstructive sleep apnea) G47.33 Assessment & Plan Assessment & Plan (1) Fatigue: Code(s): R53.83 - Other fatigue Plan: Has seen the electric stove mechanic and is on thyroid replacement. Complains of excessive drowsiness. Sleep study to be ordered. Excessive fatigue could also be due to dopamine deficiency. Citalopram started (2) CARLOS (obstructive sleep apnea): Code(s): G47.33 - Obstructive sleep apnea (adult) (pediatric) Plan: As above. Plan History of Present Illness - The patient is a 53-year-old female presenting with fatigue and thyroid dysfunction management. - She has a history of thyroid dysfunction, previously requiring emergency care, and has been undergoing medication adjustments to stabilize her thyroid levels. - Current symptoms include significant fatigue, brain fog, and heart palpitations, particularly at the current medication dosage of 88 mcg. - The patient denies depression and maintains healthy eating habits, although she has experienced recent weight gain after previous significant weight loss. - She reports sleep disturbances, including excessive daytime sleepiness, despite adequate sleep at night. - Preventative care measures include plans for a mammogram and cervical cancer screening. 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 - Exercise: Previously active, walking three miles in under an hour, but currently lacks energy to exercise. - Nutrition: Reports healthy eating habits and has used a structured weight loss program in the past. Review of Systems - General: Reports fatigue and exhaustion. Denies depression. - Cardiovascular: Reports heart palpitations. Denies chest pain. - Neurological: Reports brain fog. - Sleep: Reports excessive daytime sleepiness. Denies sleep apnea. Physical Exam General: Cooperative and healthy appearing Nutritional Appearance: Well nourished Orientation/consciousness: Patient oriented x3 Limitations: No limitations Head: Normal to inspection General: Appearance normal, both eyes and all related structures Neck: Normal visual inspection Chest: Normal palpation of entire chest wall Respiratory: N ormal respiratory effort Neurology: Patient oriented x3, reports brain fog and excessive fatigue. Results Plan 1. Thyroid Dysfunction - Adjust thyroid medication dosage to optimize thyroid function and alleviate symptoms of fatigue and palpitations. - Consider additional blood work to monitor thyroid levels and assess for any inflammatory markers. 2. Fatigue - Conduct a sleep study to evaluate for potential sleep disorders contributing to fatigue. - Initiate trial of citalopram to address potential underlying mood disorder contributing to fatigue. 3. Preventative Care: Mammogram - Schedule a mammogram as part of routine preventative care. 4. Preventative Care: Cervical Cancer Screening - Arrange for cervical cancer screening, including a Pap smear. Discussion Notes During the consultation, we discussed the patient's ongoing thyroid dysfunction and the associated symptoms of fatigue and palpitations. We explored the possibility of adjusting her thyroid medication dosage to better manage these symptoms. Additionally, we considered the potential role of a sleep disorder in her fatigue and decided to conduct a sleep study. We also discussed initiating a trial of citalopram to address any underlying mood disorder that might be contributing to her fatigue. Preventative care measures, including scheduling a mammogram and cervical cancer screening, were also addressed. The patient was informed about the potential side effects of citalopram and the importance of adherence to the medication regimen. Follow-up was planned for one month to assess the effectiveness of the interventions and adjust the plan as necessary. Patient Instructions - Take citalopram as prescribed and report any side effects. - Schedule and attend the sleep study to evaluate for sleep disorders. - Arrange for a mammogram and cervical cancer screening as part of routine pr eventative care. - Follow up in one month to review progress and adjust treatment as needed. Orders: Orders MM screening mammo BI Today R53.83 - Other fatigue, Z12.31 - Encounter for screening mammogram for malignant neoplasm of breast Basic Metabolic Panel Today R53.83 - Other fatigue Complete Blood Count no Diff Today R53.83 - Other fatigue C Reactive Protein Today R53.83 - Other fatigue Lipid Panel Today R53.83 - Other fatigue Thyroid Stimulating Hormone Today R53.83 - Other fatigue Liver Panel Today R53.83 - Other fatigue RT home sleep study Today G47.33 - Obstructive sleep apnea (adult) (pediatric) Medications: New escitalopram oxalate 10 mg PO DAILY 90 tabs 1RF 90 days
== END 2024-08-05 15:27 | disposition home or self-care (01) ==
LOC: HO.HMCHD 14:52
PROVIDERS: PCP Internal Medicine; Visit Provider Internal Medicine
DX: R53.83 Other fatigue (principal); G47.33 Obstructive sleep apnea (adult) (pediatric)

== ENCOUNTER → 2024-08-05 14:51 | Outpatient (BNVA) | payer OTHER, SELFPAY | PROVIDERS: PCP Internal Medicine; Visit Provider Internal Medicine | DX: Z13.89 Encounter for screening for other disorder (principal) ==

== ENCOUNTER 2024-09-24 13:02 | Outpatient (REF) | payer OTHER, SELFPAY ==
[2024-09-24 15:02] LABS: Hematocrit 41.3 % (37.0-47.0); Hemoglobin 13.8 g/dl (12.0-16.0); Mean Corpuscular HGB Conc 33.4 g/dl (31.0-35.0); Mean Corpuscular Hemoglobin 30.5 pg (27.0-33.0); Mean Corpuscular Volume 91.2 fL (80.0-98.0); NRBC Abs Auto 0.000 X10*3/uL (0.0-0.012); NRBC Pct Auto 0.0 /100WBC (0.0-0.2); Platelet Count 296 X10*3/uL (160-400); Red Blood Count 4.53 X10*6/uL (4.20-5.50); White Blood Count 5.6 X10*3/uL (4.8-10.8)
[2024-09-24 15:28] LABS: Alanine Aminotransferase 34 U/L (0-31); Albumin Level 4.3 g/dL (3.5-5.0); Alkaline Phosphatase 65 U/L (39-117); Anion Gap 11 (12-20); Aspartate Amino Transferase 33 U/L (5-31); Blood Urea Nitrogen 22 mg/dL (9-16); Calcium 9.5 mg/dL (8.4-10.2); Carbon Dioxide 28 mmol/L (22-29); Chloride 105 mmol/L (96-108); Cholesterol 221 mg/dL (<200); Estimated Glomerular Filt Rate > 60; HDL Cholesterol 65 mg/dL (>40); Potassium 4.3 mmol/L (3.3-5.1); Sodium 140 mmol/L (135-145); Total Protein 6.8 g/dL (6.5-8.0); Triglycerides 74 mg/dL (<150)
[2024-09-24 15:42] LABS: Thyroid Stimulating Hormone 2.96 uIU/mL (0.32-4.0)
== END 2024-09-24 13:03 | disposition home or self-care (01) ==
LOC: HO.LAB 13:02
PROVIDERS: Absent Provider Internal Medicine; PCP Internal Medicine; Visit Provider Dietitian, Registered
DX: E03.9 Hypothyroidism, unspecified (principal); R53.83 Other fatigue
CPT/HCPCS: 36415; 80048; 80061; 80076; 84443; 85027; 86140; 97802

== ENCOUNTER 2024-09-24 13:02 | Outpatient (AMB) | payer OTHER, SELFPAY ==
--- NOTE | 2024-09-24 13:10 | A.OFFVIS_ITS ---
VS Expanded 09/24/24 13:11 09/24/24 13:20 Height 5 ft 5 ft Weight 146 lb 6.191 oz 146 lb BMI 28.6 28.5 Intake Visit Reasons: Hypothyroidism, unspecified Allergies Sulfa (Sulfonamide Antibiotics) Allergy (Severe, Verified 08/05/24 14:19) SYNCOPE/RASH morphine (MORPHINE) Adverse Reaction (Intermediate, Verified 08/05/24 14:19) NAUSEA & VOMITING, vomiting Nutrition Presentation Details: Pt presents for MNT for assessment of nutritional deficiencies due to hypothyrodism. Pt reports she was 180 lbs 4 year ago and tried optivia 1200 calorie diet plan and reached 128 lbs Pt reports currently having 3 meals and 2 -3 snacks in between trying to work on having at least 60 g of protein per day ( Pt is able to accurately state the amount of protein per serving size of some foods and recipes ) Pt reports that in the past she was working on choosing gluten free foods in a consistent manner and noticed improvement in her energy levels, currently not following gluten free diet Food frequency fruits: 0-3/wks- vegetables: daily 1/d yogurt/cottage cheese : 1-3 x/wk fish: 0-2/m reports having 72 oz water/day Typical meal /day B: optivia oatmeal made with water an cream (140 aleksandr, 11 g prot), mushroom coffee snack: 12 nut, water lunch: fage yogurt and crackers 3/4 cup (15 g prot) snack: optaiva protein bar (12 g prot) dinner: pizza/ham with cheese , water snack desert BS Monitoring Most Recent Diabetes Results: Cholesterol, (<200) 221 mg/dL H 09/24/24 HDL Cholesterol, (>40) 65 mg/dL 09/24/24 Triglycerides, (<150) 74 mg/dL 09/24/24 Creatinine, (0.5-1.4) 0.71 mg/dL 09/24/24 BUN, (9-16) 22 mg/dL H 09/24/24 Sodium, (135-145) 140 mmol/L 09/24/24 Potassium, (3.3-5.1) 4.3 mmol/L 09/24/24 Chloride, (96-108) 105 mmol/L 09/24/24 Carbon Dioxide, (22-29) 28 mmol/L 09/24/24 Calcium, (8.4-10.2) 9.5 mg/dL 09/24/24 AST, (5-31) 33 U/L H 09/24/24 ALT, (0-31) 34 U/L H 09/24/24 Total Protein, (6.5-8.0) 6.8 g/dL 09/24/24 Albumin, (3.5-5.0) 4.3 g/dL 09/24/24 LQH-Fipxans-Pj.Jeor Equation Height: 5 ft Weight: 146 lb Resting Metabolic Rate: 1182.48 Calculated Activity Level: Sedentary Calories Needed to Maintain Weight: 1418.98 Diagnosis Nutrition problem #1: excessive energy intake As related to (etiology) #1: diagnosis As evidenced by (sign/symptom) #1: food recall [facility] Medical History Hypothyroid Family history of coronary arteriosclerosis Hearing loss Tinnitus Bilateral nephrolithiasis Palpitations Thyroid disease Surgical History Hx of hand surgery Hx of colonoscopy Cataract extraction status of left eye Hx of tonsillectomy Hx of section History of incision and drainage Hx of carpal tunnel repair Hx of cholecystectomy Family History (Updated 08/05/24 @ 15:04 by Shaylee Beasley MA) Father MDS (myelodysplastic syndrome) Cancer Mother Heart attack Heart failure H/O heart artery stent Social History Household Members Other:: , adult children Housing: House Are you a primary physician primary care sports medicine to a significant other at home: No Do you presently have visiting nurse or other home services: No Patient Tobacco Use Status: Never used Tobacco e-Cigarette/Vaping Use: Never Used Current occupational status: employed 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 Cognitive needs: No Hearing needs: No Vision needs: Yes (rx glasses) Assessment & Plan Assessment & Plan (1) Hypothyroid: Code(s): E03.9 - Hypothyroidism, unspecified Category: Medical Plan: Wt: 66 Kg (09/30 ) Est kcal needs as per MSJ: 9836-1913 (40% carb, 30% protein/fat) Est fluid needs as per 25-30 ml/d: 2000 Est prot per day as per 1 g/kg bw: 60-70 Recommend fiber intake : 8-10 g per day and gradually increase to 25-28 g per day for women and 35-38 g for men or as tolerated Recommend sodium intake per day : less than 2000 mg Educated patient on: ( R = reviewed V = verbalizes understanding N/R = needs review N/A = not applicable * Food sources of carbohydrate, adequate serving sizes and its role in various health conditions: R V N/R * Differences between complex carbohydrates a simple carbohydrates, role of fiber in diet: R - gluten free options * Lean protein sources of foods: R V * Differences between types of fats and role in diet (mono on saturated fat fatty acids, saturated fatty acids, trans fats): R V N/R * Food sources of sodium in salt and healthy modifications for heart health in kidney health: R V R/V * Vitamins and minerals: R V N/R * Healthy plate method concept: R * Physical activity: Benefits a precaution: R V * Patient Instructions: Include 2 fruits per day replacing pastries/bread (including vitamin c food sources/naturally gluten free foods with fiber) keep hydrated by having water with meals/snacks work on mindful eating strategies Coding Level of Care Code Nutr Indiv Intake (69467) Diagnoses Hypothyroid E03.9 Time Spent (min) 30
[2024-09-24 13:11] VITALS: BMI 28.6
[2024-09-30 09:20] VITALS: BMI 28.5
== END 2024-09-24 14:55 | disposition home or self-care (01) ==
LOC: HO.ENCR 13:03
PROVIDERS: PCP Internal Medicine; Visit Provider Dietitian, Registered
DX: E03.9 Hypothyroidism, unspecified (principal)

== ENCOUNTER 2024-10-09 13:32 | Outpatient (AMB) | payer OTHER, SELFPAY ==
--- NOTE | 2024-10-09 13:36 | MHC.PC.OV ---
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 Accompanied by: Self / Same As Patient Allergies Sulfa (Sulfonamide Antibiotics) Allergy (Severe, Verified 10/09/24 13:38) SYNCOPE/RASH morphine (MORPHINE) Adverse Reaction (Intermediate, Verified 10/09/24 13:38) NAUSEA & VOMITING, vomiting Medication List - Last Reconciled 10/09/24 by VALERIA Pena cholecalciferol (vitamin D3) 250 mcg PO DAILY magnesium oxide 420 mg PO BEDTIME mecobalamin (vitamin B12) mcg PO pyridoxine (vitamin B6) 25 mg PO DAILY Tirosint (levothyroxine) 88 mcg PO DAILY NS Tobacco use date assessed: 08/05/24 Dental Screening Dental Screen Date: 08/05/24 HPI HPI Comments History of Present Illness Details 54-year-old female with history of hypothyroidism presents to the office today for follow-up. She was seen in the office 2 months ago with concerns over fatigue and reports she was prescribed an antidepressant, Lexapro, though she does not feel at all like she is depressed or anxious. She feels strongly that her fatigue is related to her thyroid function. She has a history of hypothyroidism and levothyroxine dose has gradually been decreased from 112 mcg to 88 mcg daily. Last labs showed a TSH of 2.96. Free T4 was not obtained given normal TSH. Historically, she was noted to be hyperthyroid related to levothyroxine dos and as a result this was lowered. She had been experiencing symptoms of palpitations and reports these are also ongoing. She states she felt more comfortable 112 mcg daily. She was previously following with endocrinology, Dr. Franco, but would like to see a different telephony engineer. She has also been experiencing hair loss as well as some weight gain but is working on weight loss. She has discontinued the Lexapro she was prescribed. She is sleeping 7-8 hours throughout the night and denies any apneic episodes of snoring. Does have upcoming sleep study. Reports no matter how much sleep she gets she never feels rested. She was previously a very active person but is struggling with energy to continue with activity. She does also report that she has had many tick bites with 3 bull's eye rashes this year but has never been tested for Lyme. ROS: See HPI EXAM: Constitutional - Awake and Alert, No apparent distress Eyes - PERRL Neck-no adenopathy, no goiter or palpable nodules Cardiovascular - S1S2, RRR, No edema Respiratory - Normal lung expansion, Normal respiratory effort, No respiratory distress, CTA bilaterally Extremities - no calf tenderness bilaterally, no swelling Skin - Warm/Dry Neurological - Alert & oriented x3 Psychological - Appropriate affect PFSH Medical History Hypothyroid Family history of coronary arteriosclerosis Hearing loss Tinnitus Bilateral nephrolithiasis Palpitations Thyroid disease Surgical History Hx of hand surgery Hx of colonoscopy Cataract extraction status of left eye Hx of tonsillectomy Hx of section History of incision and drainage Hx of carpal tunnel repair Hx of cholecystectomy Family History (Updated 08/05/24 @ 15:04 by Shaylee Beasley MA) Father MDS (myelodysplastic syndrome) Cancer Mother Heart attack Heart failure H/O heart artery stent Social History Household Members Other:: , adult children Housing: House Are you a primary career services coordinator to a significant other at home: No Do you presently have visiting nurse or other home services: No Patient Tobacco Use Status: Never used Tobacco e-Cigarette/Vaping Use: Never Used Current occupational status: employed 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 See Epps, Lo Chawla, Alexis Mckeon and colleagues, with an educational jaymie from [employer]. Physical exam (Primary Care) Vital Signs: Last Vital Signs Temp 97.5 F 10/09/24 13:51 Pulse 80 10/09/24 13:51 BP 108/74 10/09/24 13:51 Pulse Ox 99 10/09/24 13:51 Oxygen Delivery Method Room Air 10/09/24 13:51 BMI result Body Mass Index 28.5 Tobacco/Smoking Status: Tobacco use Status Tobacco use date assessed 08/05/24 10/09/24 13:43 Patient Tobacco Use Status Never used Tobacco 10/09/24 13:43 e-Cigarette/Vaping Use Never Used 10/09/24 13:43 Thrive Assessment: Date of Thrive Assessment Date Thrive assessed 08/05/24 10/09/24 13:43 Coding Level of Care Code Est Pt Level 4 (68860) Diagnoses Hypothyroid E03.9 Assessment & Plan Assessment & Plan (1) Hypothyroid: Code(s): E03.9 - Hypothyroidism, unspecified Category: Medical Plan: Refer to endocrinology Plan Discussed that thyroid labs are reassuring with normal TSH last month. Would recommend continuing current dose of levothyroxine 88 mcg daily. Will refer to Dr. Linares in endocrinology for further evaluation and management. Recommended to have labs completed several days prior to that visit. Will also check for tick-borne illness given severity of fatigue. Orders: Orders Lyme IgG/IgM w/reflex to WB Today R53.83 - Other fatigue, W57.XXXA - Bitten or stung by nonvenomous insect and other nonvenomous arthropods, initial encounter Tick-borne Disease Molecular Today R53.83 - Other fatigue, W57.XXXA - Bitten or stung by nonvenomous insect and other nonvenomous arthropods, initial encounter Thyroid Peroxidase Antibodies 1 Month E03.9 - Hypothyroidism, unspecified, R00.2 - Palpitations Thyroid Stimulating Hormone 1 Month E03.9 - Hypothyroidism, unspecified, R00.2 - Palpitations Free T4 (Free Thyroxine) 1 Month E03.9 - Hypothyroidism, unspecified, R00.2 - Palpitations Referrals Endocrinology Referral E03.9 - Hypothyroidism, unspecified Medications: New magnesium oxide 420 mg PO BEDTIME 90 tabs 0RF
[2024-10-09 13:51] VITALS: BP 108/74; PULSE 80; TEMP 36.4; O2SAT 99; BMI 28.5
== END 2024-10-09 14:19 | disposition home or self-care (01) ==
LOC: HO.HMCHD 13:33
PROVIDERS: PCP Physician Assistant; Visit Provider Physician Assistant
DX: E03.9 Hypothyroidism, unspecified (principal)

== ENCOUNTER 2024-10-09 13:32 | Outpatient (REF) | payer OTHER, SELFPAY ==
[2024-10-10 09:39] LABS: Lyme Abs Screen <0.90 index
[2024-10-11 13:24] LABS: A. Phagocytphilium DNA,RT-PCR NOT DETECTED (NOT DETECTED); Babesia Microti DNA, RT-PCR NOT DETECTED (NOT DETECTED); Borrelia Miyamotoi,DNA RT-PCR NOT DETECTED (NOT DETECTED); E.Chaffeensis DNA RT-PCR NOT DETECTED (NOT DETECTED); Lyme(Borrelia ssp)DNA RT-PCR NOT DETECTED (NOT DETECTED)
== END 2024-10-09 13:33 | disposition home or self-care (01) ==
LOC: HO.LAB 13:32
PROVIDERS: PCP Physician Assistant; Visit Provider Physician Assistant
DX: E03.9 Hypothyroidism, unspecified (principal); R53.83 Other fatigue; W57.XXXA Bitten or stung by nonvenomous insect and other nonvenomous arthropods, initial encounter
CPT/HCPCS: 36415; 86617; 86618; 87468; 87469; 87478; 87484; 87798

== ENCOUNTER → 2024-10-16 15:45 | Outpatient (REF) | payer OTHER, SELFPAY | LOC: HO.SL 15:45 | PROVIDERS: PCP Internal Medicine; Visit Provider Internal Medicine | DX: Z13.89 Encounter for screening for other disorder (principal) ==

== ENCOUNTER → 2024-10-16 15:58 | Outpatient (BNV) | payer OTHER, SELFPAY | PROVIDERS: PCP Internal Medicine; Visit Provider Internal Medicine | DX: R40.0 Somnolence (principal) | CPT/HCPCS: 95806 ==

== ENCOUNTER 2024-11-25 06:49 | Outpatient (REF) | payer OTHER, SELFPAY ==
[2024-11-25 08:17] LABS: Free T4 (Free Thyroxine) 0.79 ng/dL (0.71-1.85); Thyroid Stimulating Hormone 6.85 uIU/mL (0.32-4.0)
== END 2024-11-25 06:50 | disposition home or self-care (01) ==
LOC: HO.LAB 06:49
PROVIDERS: PCP Physician Assistant; Visit Provider Physician Assistant
DX: R00.2 Palpitations (principal); E03.9 Hypothyroidism, unspecified
CPT/HCPCS: 36415; 84439; 84443; 86376

== ENCOUNTER 2024-12-31 12:22 | Outpatient (AMB) | payer OTHER, SELFPAY ==
--- NOTE | 2024-12-31 12:23 | A.OFFVIS_ITS ---
Vital Signs 12/31/24 12:27 Height 5 ft Weight 152 lb 1.903 oz BMI 29.7 BP 112/70 Blood Pressure Location Rt brachial Position Sitting Pulse 66 Pulse Source Pulse Oximeter Pulse Oximetry (%) 99 Oxygen Delivery Method Room Air Intake Visit Reasons: Hypothyroidism Intake Note: Patient presents today for follow-up on Hypothyroidism: Patient last seen by DR See Franco MD. Program Admin Required: No Accompanied by: Self / Same As Patient Allergies Sulfa (Sulfonamide Antibiotics) Allergy (Severe, Verified 12/31/24 12:24) SYNCOPE/RASH morphine (MORPHINE) Adverse Reaction (Intermediate, Verified 12/31/24 12:24) NAUSEA & VOMITING, vomiting Medication List - Last Reconciled 12/31/24 by YesEarl Harding MD cholecalciferol (vitamin D3) 250 mcg PO DAILY magnesium oxide 420 mg PO BEDTIME mecobalamin (vitamin B12) mcg PO pyridoxine (vitamin B6) 25 mg PO DAILY thyroid (pork) (Maple Thyroid) 60 mg PO DAILY Tirosint (levothyroxine) 100 mcg PO DAILY NS Held on 12/31/24. Instructions: Doctor's Order HPI Comments Details: 53 YO F with who is seen in consultation at the request of his PCP for Hypothyroidism. Previously seen by Dr. Franco on 07/30/2024 previously seen my 1st time seeing this patient. First diagnosed with Hypothyroidism since age 9, due to multiple symptoms including weight gain, hair loss and a goiter. Currently using thyroid hormone. Tirosint 88 ug . Dose decreased about 4 weeks ago. There is no hx of hyperlipidemia . Denies obstructive sx of goiter . Denies consuming any kelp or seaweed. Denies taking amiodarone. Biotin: No No nausea. Nolonger Losing wt . She was experiencing persistent low energy levels, and exacerbated fatigue since the most recent dosage change, raising concerns about potential adrenal insufficiency. However, a.m. cortisol and TSH and free T4 were deemed to be normal on current dose of Tirosint The patient is a 53-year-old female presenting with fatigue and heart palpitations. She reports feeling tired and exhausted, experiencing brain fog, and having difficulty staying awake despite adequate sleep. The fatigue began after her thyroid medication dosage was adjusted from 112 mcg to 88 mcg, with worsening symptoms at the lower dose. The patient also reports experiencing heart palpitations, which began shortly after starting the 88 mcg thyroid medication dose. She has undergone extensive cardiac evaluations, including a CAT scan, ultrasound, and stress tests, all of which were normal. Despite normal cardiac findings, the palpitations persist, and she has a family history of significant cardiac events. The patient is in menopause, confirmed by normal cortisol levels and absence of significant hot flashes. She maintains a diet primarily consisting of protein bars and reports a recent weight gain despite no changes in dietary habits. Her weight has increased from 130 to 143 pounds, which she finds frustrating given her consistent eating habits. - Reports difficulty engaging in physical activity due to fatigue. - Previously active, walking three miles in under an hour. Interval history 12/31/2024 Primary care increase Levothyroxine to 100mg 1 month ago She reports that she usually experiences palpitations when she is hypothyroid. She also reports that she functions better when her TSH is slightly suppressed as opposed to normal level She reports gaining weight in the recent months despite efforts to lose weight Reports feeling tired all the time Laboratory Tests 11/25/24 07:03 TSH 6.85 H Free T4 0.79 PFSH Medical History Hypothyroid Family history of coronary arteriosclerosis Hearing loss Tinnitus Bilateral nephrolithiasis Palpitations Thyroid disease Surgical History Hx of hand surgery Hx of colonoscopy Cataract extraction status of left eye Hx of tonsillectomy Hx of section History of incision and drainage Hx of carpal tunnel repair Hx of cholecystectomy Family History Father MDS (myelodysplastic syndrome) Cancer Mother Heart attack Heart failure H/O heart artery stent Social History Household Members Other:: , adult children Housing: House Are you a primary medicare insurance specialist to a significant other at home: No Do you presently have visiting nurse or other home services: No Patient Tobacco Use Status: Never used Tobacco e-Cigarette/Vaping Use: Never Used Current occupational status: employed 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 Cognitive needs: No Hearing needs: No Vision needs: Yes (rx glasses) Physical Exam Vital Signs: Last Vital Signs Pulse 66 12/31/24 12:27 BP 112/70 12/31/24 12:27 Pulse Ox 99 12/31/24 12:27 Oxygen Delivery Method Room Air 12/31/24 12:27 BMI result Body Mass Index 29.7 Assessment & Plan Assessment & Plan (1) Hypothyroid: Code(s): E03.9 - Hypothyroidism, unspecified Category: Medical Qualifiers: 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 Appears to be clinically and biochemically euthyroid . Adrenal insufficiency was ruled out by normal a.m. cortisol. No clear reason for patient's symptoms from endocrine perspective. 1. Fatigue She reports significant fatigue that does not improve despite normal TSH, adrenal insufficiency being ruled out and no evidence of CARLOS as sleep study was normal. The patient's fatigue may not be linked to her thyroid medication dosage. We discussed the possibility of using Maple thyroid, but we discussed how it affects thyroid feedback and makes complex to interpret TSH due to p ossible oversuppression from direct T3 content in armour thyroid. 2. Heart palpitations Persistent palpitations require further investigation. She reports that she was evaluated by cardiology and a 3-days Holter did not show any evidence of arrhytmia. She might benefit from a loop recorder for longer monitoring as her palpitations are rather intermittent. She met with storage solutions architect for dietary recommendations for weight loss, which she reported being overall well at baseline. She does report a good level of activity, but she is less active now due to winter and fatigue symptoms. We decided to give a try to Maple thryoid and she will monitor for symptoms of hyperthyroidism. -Start Maple Thyroid 60 mg daily -Repeat TFTs in 6 weks -Follow up in 2 months Plan 30 minutes spent reviewing previous records, labs, imaging, education and documenting in the chart Orders: Orders Triiodothyronine T3 Total 6 Weeks E06.3 - Autoimmune thyroiditis TSH reflex Free T4 6 Weeks E06.3 - Autoimmune thyroiditis Free T4 (Free Thyroxine) 6 Weeks E06.3 - Autoimmune thyroiditis Medications: New thyroid (pork) (Maple Thyroid) 60 mg PO DAILY 30 tabs 3RF On Hold Tirosint (levothyroxine) Hold Comment: Doctor's Order 100 mcg PO DAILY 30 caps 5RF NS E03.9 - Hypothyroidism, unspecified Coding Level of Care Code Complex visit Add On [id number] Diagnoses 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
[2024-12-31 12:27] VITALS: BP 112/70; PULSE 66; O2SAT 99; BMI 29.7
== END 2024-12-31 13:25 | disposition home or self-care (01) ==
LOC: HO.ENCR 12:23
PROVIDERS: PCP Physician Assistant; Visit Provider Student in an Organized Health Care Education/Training Program
DX: E06.3 Autoimmune thyroiditis (principal)
CPT/HCPCS: 99213